=== PATIENT | male | born 1945 | race Caucasian/White ===

== ENCOUNTER 2018-03-19 08:18 | Day surgery (SDC) | payer OTHER ==
[2018-03-19 09:38] VITALS: BMI 28.3
[2018-03-19 11:20] VITALS: BP 123/88; PULSE 67; TEMP 98
--- NOTE | 2018-03-19 12:55 | EKG ---
Test Reason : Blood Pressure : / mmHG Vent. Rate : 069 BPM Atrial Rate : 069 BPM P-R Int : 218 ms QRS Dur : 096 ms QT Int : 432 ms P-R-T Axes : 076 -44 045 degrees QTc Int : 462 ms SINUS RHYTHM WITH 1ST DEGREE A-V BLOCK LEFT AXIS DEVIATION ABNORMAL ECG WHEN COMPARED WITH ECG OF 03-MAR-2008 09:51, [place] INTERVAL HAS INCREASED Confirmed by YOU CORNELIUS, ANA ([id number]) on 03/19/2018 12:55:19 PM Referred By: Pascual Alvarez Confirmed By:ANA ORTA MD
== END 2018-03-19 11:20 | disposition home or self-care (01) ==
LOC: JASU-ENDO 08:18
PROVIDERS: ATTEND Internal Medicine Cardiovascular Disease
PROC: 5A2204Z Restoration of Cardiac Rhythm, Single (ICD-10-PCS; principal; 2018-03-19 09:30)
DX: I48.91 Unspecified atrial fibrillation (principal)
CPT/HCPCS: 92960; 93005; 93010

== ENCOUNTER 2018-04-28 06:56 | Day surgery (SDC) | payer OTHER ==
[2018-04-28 07:25] VITALS: BMI 27.9
[2018-04-28 07:29] LABS: HEMATOCRIT 44.7 % (35.4-49); HEMOGLOBIN 15.1 GM/dL (11.7-16.9); MCH 31.4 pg (25.7-33.7); MCHC 33.8 g/dl (32.0-35.9); MEAN CELL VOLUME 93.2 fl (80-96); MEAN PLT VOLUME 7.5 fl (7.5-11.1); PLATELET COUNT 200 K/MM3 (134-434); WHITE BLOOD COUNT 7.4 K/mm3 (4.0-10.0)
[2018-04-28 08:05] LABS: CHLORIDE 103 mmol/L (98-107); SODIUM 138 mmol/L (136-145)
[2018-04-28] MEDS ORDERED: PROPOFOL 20 ML ONE ×4 (08:11)
[2018-04-28 08:13] LABS: ALBUMIN 3.9 g/dl (3.4-5.0); ALK PHOS 67 U/L (45-117); ANION GAP 8 (8-16); BILIRUBIN,TOTAL 0.9 mg/dL (0.2-1.0); BLOOD UREA NITROGEN 24 mg/dL (7-18); CO2 27 mmol/L (21-32); CREATININE 1.7 mg/dL (0.7-1.3); GLUCOSE,RANDOM 113 mg/dL (74-106); SGPT/ALT 40 U/L (12-78); TOT PROT 7.5 g/dl (6.4-8.2)
[2018-04-28 08:23] LABS: SGOT/AST 30 U/L (15-37)
[2018-04-28 08:49] VITALS: TEMP 98.5
[2018-04-28 10:03] VITALS: BP 119/61; PULSE 58
--- NOTE | 2018-04-28 12:12 | EKG ---
Test Reason : Blood Pressure : / mmHG Vent. Rate : 053 BPM Atrial Rate : 053 BPM P-R Int : 226 ms QRS Dur : 098 ms QT Int : 498 ms P-R-T Axes : 063 -50 020 degrees QTc Int : 467 ms SINUS BRADYCARDIA WITH 1ST DEGREE A-V BLOCK LEFT AXIS DEVIATION ABNORMAL ECG WHEN COMPARED WITH ECG OF 19-MAR-2018 10:37, NO SIGNIFICANT CHANGE WAS FOUND Confirmed by MD JANN, EVERTON ([id number]) on 04/28/2018 12:12:45 PM Referred By: BEATA FAYE DR Confirmed By:EVERTON FORTE MD
== END 2018-04-28 09:35 | disposition home or self-care (01) ==
LOC: JASU-ENDO 06:56
PROVIDERS: ATTEND Internal Medicine Cardiovascular Disease
PROC: 5A2204Z Restoration of Cardiac Rhythm, Single (ICD-10-PCS; principal; 2018-04-28 08:15)
DX: I48.91 Unspecified atrial fibrillation (principal); I10 Essential (primary) hypertension; E11.9 Type 2 diabetes mellitus without complications; Z79.84 Long term (current) use of oral hypoglycemic drugs
CPT/HCPCS: 36415; 80053; 85027; 93005; 93010

== ENCOUNTER 2018-11-02 13:06 | Inpatient (IN) | payer OTHER ==
--- NOTE | 2018-11-02 13:12 | PDOC ---
History of Present Illness - General Chief Complaint: Pain Stated Complaint: LEFT ANKLE PAIN Time Seen by Provider: 11/02/18 13:11 History Source: Patient Exam Limitations: No Limitations - History of Present Illness Initial Comments: 11/02/18 13:11 73 yo male pmh of HTN, HLD, CABG, carotid endarterectomy, illiac stents and Afib requiring cardioversion (on eliquis) presents to the ED with left ankle pain and swelling. Pt states 4 days ago he started feeling weak and lethargic with some chills and noted 2 days ago LLE ankle pain and swelling began. Pt admits to having an infection/cellulitis in the left ankle over 5 years ago in the same area and was treated with PO medication and improved. Denies CP, SOB, abdominal pain, changes in bowel or bladder habits, calf pain. Past History - Past Medical History Allergies/Adverse Reactions: Allergies Allergy/AdvReac Type Severity Reaction Status Date / Time Penicillins Allergy Severe Verified 11/02/18 13:07 Home Medications: Ambulatory Orders Celecoxib [CeleBREX -] 200 mg PO DAILY 03/11/13 Clopidogrel Bisulfate [Plavix -] 75 mg PO DAILY 03/11/13 Isosorbide Mononitrate [Imdur] 120 mg PO DAILY 03/11/13 Metoprolol Succinate [Toprol XL -] 50 mg PO DAILY 03/11/13 metFORMIN HCL [Glucophage -] 500 mg PO BID 03/11/13 Apixaban [Eliquis] 5 mg PO BID 03/19/18 Diltiazem HCl [Cartia Xt] 120 mg PO DAILY 03/19/18 Nortriptyline HCl [Pamelor -] 25 mg PO HS 03/19/18 Amiodarone HCl [Cordarone -] 200 mg PO DAILY 04/28/18 Atorvastatin Ca [Lipitor] 20 mg PO DAILY 04/28/18 Cholecalciferol (Vitamin D3) [Vitamin D3] 1,000 unit PO DAILY 04/28/18 Magnesium Oxide [Magnesium] 400 mg PO DAILY 04/28/18 Melatonin 1 mg PO DAILY 04/28/18 Niacin 100 mg PO DAILY 04/28/18 Turmeric/Turmeric Ext/Pepr Ext [Turmeric Complex 500 mg Cap] 1 each PO DAILY 04/10 Zinc 220 mg PO DAILY 04/28/18 Sulfamethoxazole/Trimethoprim [Bactrim Ds -] 1 tab PO BID #10 tablet 11/10/18 Anemia: No Asthma: No Cancer: No Cardiac Disorders: Yes (PAF, CAD) CVA: No COPD: No CHF: No Dementia: No Diabetes: Yes (NIDDM) GI Disorders: No Disorders: No HTN: Yes Hypercholesterolemia: Yes Liver Disease: Yes Seizures: No Thyroid Disease: No - Surgical History Abdominal Surgery: Yes Appendectomy: No Cardiac Surgery: Yes (BYPASS 2000) Cholecystectomy: Yes Lung Surgery: No Neurologic Surgery: No Orthopedic Surgery: Yes (RT CARPAL TUNNEL, RT TORN MENISCUS) - Suicide/Smoking/Psychosocial Hx Smoking History: Former smoker Have you smoked in the past 12 months: No If you are a former smoker, when did you quit?: 1990 Hx Alcohol Use: Yes (OCC) Drug/Substance Use Hx: No Substance Use Type: None Hx Substance Use Treatment: No Review of Systems - Review of Systems Constitutional: Yes: Chills, Fever, Weakness HEENTM: No: Blurred Vision Respiratory: No: Shortness of Breath Cardiac (ROS): No: Chest Pain ABD/GI: No: Constipated, Diarrhea : No: Burning, Dysuria, Flank Pain Musculoskeletal: No: Back Pain, Muscle Pain Integumentary: Yes: Change in Color, Erythema Neurological: No: Numbness, Paresthesia, Weakness *Physical Exam - Physical Exam General Appearance: Yes: Nourished, Appropriately Dressed. No: Apparent Distress HEENT: positive: EOMI Respiratory/Chest: positive: Lungs Clear, Normal Breath Sounds. negative: Accessory Muscle Use, Crackles, Rales, Rhonchi, Wheezing Cardiovascular: positive: Regular Rhythm, Regular Rate, S1, S2, Edema (1+ pitting LLE). negative: JVD, Murmur Vascular Pulses: Dorsalis-Pedis (R): 3+, Doralis-Pedis (L): 3+ Gastrointestinal/Abdominal: positive: Normal Bowel Sounds, Flat, Soft. negative : Pulsatile Mass, Distended, Guarding, Rebound, Tenderness Extremity: positive: Normal Capillary Refill, Normal Range of Motion, Pedal Edema (LLE 1+ pitting without fluctuance), Erythema (LLE). negative: Calf Tenderness Integumentary: positive: Dry, Warm Neurologic: positive: Fully Oriented, Alert, Normal Mood/Affect, Normal Response ED Treatment Course - LABORATORY CBC & Chemistry Diagram: 11/06/18 10:10 11/08/18 09:50 Medical Decision Making - Medical Decision Making 73 yo male pmh of HTN, HLD, CABG, carotid endarterectomy, illiac stents and Afib requiring cardioversion (on eliquis) presents to the ED with left ankle pain and swelling. Pt states 4 days ago he started feeling weak and lethargic with some chills and noted 2 days ago LLE ankle pain and swelling began. Pt admits to having an infection/cellulitis in the left ankle over 5 years ago in the same area and was treated with PO medication and improved. Denies CP, SOB, abdominal pain, changes in bowel or bladder habits, calf pain. Pt was hypotensive on arrival. Received IV fluids and responded well IV antibiotics started Labs show WBC 15, lactate 3 and elevated creatinine Discussed pt with hospitalist JAMA Quintero who agrees to have pt admitted for sepsis and acute on chronic renal failure *DC/Admit/Observation/Transfer Diagnosis at time of Disposition: Sepsis Qualifiers: Sepsis type: sepsis due to unspecified organism Qualified Code(s): A41.9 - Sepsis, unspecified organism Acute on chronic kidney failure Qualifiers: Acute renal failure type: unspecified Chronic kidney disease stage: unspecified stage Qualified Code(s): N17.9 - Acute kidney failure, unspecified Cellulitis Qualifiers: Site of cellulitis: extremity Site of cellulitis of extremity: lower extremity Laterality: left Qualified Code(s): L03.116 - Cellulitis of left lower limb - Discharge Dispostion Condition at time of disposition: Stable Decision to Admit order: Yes - Prescriptions - Referrals - Patient Instructions - Post Discharge Activity
[2018-11-02 14:35] LABS: BASO % 0.2 % (0-2.0); EOS % 0.1 % (0-4.5); HEMOGLOBIN 14.2 GM/dl (11.7-16.9); LYMPH % 6.9 % (8-40); MCH 30.8 pg (25.7-33.7); MCHC 31.6 g/dl (32.0-35.9); MEAN CELL VOLUME 97.6 fl (80-96); MEAN PLT VOLUME 8.5 fl (7.5-11.1); MONO % 7.9 % (3.8-10.2); NEUT % 84.9 % (42.8-82.8); PLATELET COUNT 198 K/MM3 (134-434); RBC 4.61 M/mm3 (4.00-5.60); RDW 13.6 % (11.9-15.9); WHITE BLOOD COUNT 15.1 K/mm3 (4.0-10.8)
[2018-11-02] MEDS ORDERED: SODIUM CHLORIDE 1,000 ML IV STA ×2 (14:45→14:46)
[2018-11-02 14:54] LABS: ALBUMIN 3.2 g/dl (3.5-5.0); ALK PHOS 63 U/L (32-92); ANION GAP 11 MMOL/L (8-16); BILIRUBIN,TOTAL 1.2 mg/dl (0.2-1.0); BLOOD UREA NITROGEN 41 mg/dl (7-18); CALCIUM 8.7 mg/dl (8.4-10.2); CHLORIDE 102 mmol/L (98-107); CO2 19 mmol/L (22-28); CREATININE 2.4 mg/dl (0.6-1.3); GLUCOSE,RANDOM 119 mg/dl (74-106); POTASSIUM 4.4 mmol/L (3.5-5.1); SGOT/AST 122 U/L (10-42); SGPT/ALT 114 U/L (10-40); SODIUM 132 mmol/L (136-145); TOT PROT 6.6 g/dl (6.4-8.3)
[2018-11-02] MEDS ORDERED: VANCOMYCIN 1 GRAM (PRE-DOCKED) 1,000 MG/250 ML BAG IVPB ONE (15:07)
--- NOTE | 2018-11-02 15:07 | PDOC ---
Attending Attestation - Resident Resident Name: Kevan Barbour - ED Attending Attestation I have performed the following: I have examined & evaluated the patient, The case was reviewed & discussed with the resident, I agree w/resident's findings & plan, Exceptions are as noted - HPI HPI: 73 yo M presents with LLE redness, pain. Also c/o weakness, fever. No recent illness. He has had cellulitis to his L leg in the past. - Physicial Exam PE: GENERAL: Awake, alert, and fully oriented, in no acute distress HEAD: No signs of trauma EYES: PERRLA, EOMI, sclera anicteric, conjunctiva clear ENT: Auricles normal inspection, hearing grossly normal, nares patent, oropharynx clear without exudates. Dry mucosa NECK: Normal ROM, supple, no lymphadenopathy, JVD, or masses LUNGS: Breath sounds equal, clear to auscultation bilaterally. No wheezes, and no crackles HEART: Regular rate and rhythm, normal S1 and S2, no murmurs, rubs or gallops ABDOMEN: Soft, nontender, normoactive bowel sounds. No guarding, no rebound. No masses EXTREMITIES: L lower leg with large area of redness, no fluctuance, no induration. No open lesions, however, he does have dry cracked skin to the lower leg and foot. 1+ pitting edema to LLE. Remainder of extremities with normal range of motion, no edema. No clubbing or cyanosis. No cords, erythema, or tenderness NEUROLOGICAL: Cranial nerves II through XII grossly intact. Normal speech. Motor and sensation intact. SKIN: Warm, Dry, normal turgor, no rashes or lesions noted. - Medical Decision Making Pt initially hypotensive. Likely related both to the infection and his lack of PO intake for the past 5 days. He responded to IV fluids. Sepsis labs obtained, XR obtained. IV abx given.
[2018-11-02 15:08] LABS: INR 2.64 (0.82-1.09)
[2018-11-02] MEDS ORDERED: VANCOMYCIN 1,000 MG VIAL (RESTRICTED TO ID ONLY) ONE (15:35)
--- NOTE | 2018-11-02 16:41 | HP ---
Admitting History and Physical - Primary Care Physician PCP: Jean Paul Núñez - Admission Chief Complaint: Left ankle redness and swelling x 2 days. 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 Mr. Urrutia reports left hip tenderness 2days prior to his symptoms in LLE being present. Associated symptoms include lethargy, chills, gait impairment , decreased appetite and lethargy. His family reports prior cellulitis in left lower extremity ~ 3yrs ago, which was treated with oral Abx. Patient unable to recall any precipitating factors. At the urging of his family, pt decided to present to local ED for evaluation. In ED he was noted to be hypotensive (SBP 80s), WBC 15, Lactate 3.0. He was given 2L IV fluids which resulted in improvement in hypotension (SBP 100-130s). Additionally, He was treated with vancomycin IV. Decision made to admit pt for management of LLE cellulitis. History Source: Patient, Family Member Limitations to Obtaining History: No Limitations - Past Medical History Cardiovascular: Yes: AFIB (s/p DCCV, pt now on eliquis), CAD, HTN, Hyperlipdemia , [place] Gastrointestinal: Yes: GERD, Other (dysphagia) Hepatobiliary: No: Cirrhosis, Cholelithiasis, Cholecystitis, Choledocholithiasis , Hepatitis A, Hepatitis B, Hepatitis C, Other Renal/: Yes: Renal Inusuff. No: Renal Failure, BPH, Cancer, Hematuria, Hemodialysis, Neurogenic Bladder, Renal Calculi, UTI, Other Heme/Onc: No: Anemia, B12 Deficiency, Bleeding Disorder, Cancer, Current Chemotherapy, Current Radiation Therapy, Hemochromatosis, Hypercoaguable State, Myeloproliferative Synd, Sickle Cell Disease, Sickle Cell Trait, Thrombocytopenia, Other Psych: No: Addictions, Anxiety, Bipolar, Depression, Panic, Psychosis, Schizophrenia, Other Rheumatology: No: Fibromyalgia, Gout, Lupus, Rheumatoid Arthritis, Sarcoidosis, Vasculitis, Other ENT: No: Allergic Rhinitis, Sinusitis, Other Endocrine: Yes: Diabetes Mellitus, Other (thyroid nodule) Additional Past Medical History: Peripheral artery disease - Past Surgical History Past Surgical History: Yes: CABG, Carotid Endarterectomy (open carotid endarectomy x 2, stent placement x 1.), Colonoscopy (2012), Joint Replacement - Smoking History Smoking history: Former smoker (3PPD x 10yrs) Have you smoked in the past 12 months: No If you are a former smoker, when did you quit?: 1990 - Alcohol/Substance Use Hx Alcohol Use: Yes (pt drank heavily x 12yrs, now drinks 2 beers after work) History of Substance Use: reports: None - Social History Usual Living Arrangement: Yes: With Spouse (in private home) ADL: Independent 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 History of Recent Travel: No Home Medications - Allergies Allergies/Adverse Reactions: Allergies Allergy/AdvReac Type Severity Reaction Status Date / Time Penicillins Allergy Severe Verified 11/02/18 13:07 - Home Medications Home Medications: Ambulatory Orders Celecoxib [CeleBREX -] 200 mg PO DAILY 03/11/13 Clopidogrel Bisulfate [Plavix -] 75 mg PO DAILY 03/11/13 Isosorbide Mononitrate [Imdur] 120 mg PO DAILY 03/11/13 Metoprolol Succinate [Toprol XL -] 50 mg PO DAILY 03/11/13 Zolpidem Tartrate [Ambien] 10 mg PO HS 03/11/13 metFORMIN HCL [Glucophage -] 500 mg PO BID 03/11/13 Apixaban [Eliquis] 5 mg PO BID 03/19/18 Diltiazem HCl [Cartia Xt] 120 mg PO DAILY 03/19/18 Nortriptyline HCl [Pamelor -] 25 mg PO HS 03/19/18 Amiodarone HCl [Cordarone -] 200 mg PO DAILY 04/28/18 Atorvastatin Ca [Lipitor] 20 mg PO DAILY 04/28/18 Cholecalciferol (Vitamin D3) [Vitamin D3] 1,000 unit PO DAILY 04/28/18 Magnesium Oxide [Magnesium] 400 mg PO DAILY 04/28/18 Melatonin 1 mg PO DAILY 04/28/18 Niacin 100 mg PO DAILY 04/28/18 Turmeric/Turmeric Ext/Pepr Ext [Turmeric Complex 500 mg Cap] 1 each PO DAILY 04/10 Zinc 220 mg PO DAILY 04/28/18 Family Disease History - Family Disease History Family Disease History: Other: Father ( (52) [place]), Mother ( (48) colon cancer), Brother ( (50s) [place]) Other Family History: Sister (78) DMII, [place]. Sister alive (80) Gastric ulcers, DMII Review of Systems - Review of Systems Constitutional: reports: Chills, Lethargy, Malaise Eyes: reports: No Symptoms HENT: reports: No Symptoms Neck: reports: No Symptoms Cardiovascular: reports: No Symptoms Respiratory: reports: No Symptoms Gastrointestinal: reports: No Symptoms Genitourinary: reports: No Symptoms Breasts: reports: No Symptoms Reported Musculoskeletal: reports: Decreased ROM, Extremity Pain (LLE), Joint Pain, Joint Swelling (Left ankle) Integumentary: reports: Change in Color, Erythema (let ankle) Neurological: reports: Unsteady Gait, Weakness Endocrine: reports: No Symptoms Hematology/Lymphatic: reports: No Symptoms Psychiatric: reports: No Symptoms Physical Examination Vital Signs: Vital Signs Temperature 97.3 F L 11/02/18 15:26 Pulse Rate 59 L 11/02/18 16:28 Respiratory Rate 20 11/02/18 16:28 Blood Pressure 96/65 11/02/18 16:28 O2 Sat by Pulse Oximetry (%) 99 11/02/18 16:28 Constitutional: Yes: No Distress, Calm Eyes: Yes: WNL, Conjunctiva Clear HENT: Yes: Atraumatic, Normocephalic Neck: Yes: Supple, Trachea Midline Cardiovascular: Yes: Regular Rate and Rhythm Respiratory: Yes: WNL, Regular, CTA Bilaterally Gastrointestinal: Yes: Normal Bowel Sounds, Soft ...Rectal Exam: Yes: Deferred Renal/: Yes: WNL Musculoskeletal: Yes: WNL Extremities: Yes: WNL, Erythema (LLE) Edema: Yes Edema: LUE: 2+, RUE: 2+, LLE: Trace, RLE: 2+ Peripheral Pulses WNL: Yes Peripheral Pulses: Left Radial: 2+, Right Radial: 2+, Left Doralis Pedis: 1+, Right Dorsalis Pedis: 1+ Integumentary: Yes: Erythema (LLE redness and trace edema) Neurological: Yes: Alert, Oriented, Unsteady Gait, Weakness ...Motor Strength: WNL Psychiatric: Yes: Alert, Oriented Labs: CBC, BMP 11/02/18 14:24 11/02/18 14:24 Imaging - Results Chest X-ray: Report Reviewed (CXR 11/02 Impression: Sternal sutures and clips with prominent mediastinum. Angles are sharp and the soft tissues are intact. There are degenerative changes), Image Reviewed X-ray: Report Reviewed (Left foot xray 11/02 Impression: no acute left ankle for foot pathology Left tibia and fibula xray 11/02 Impression: There are degenerative knee changes wit chondrocalcinosis and clips. There is no sign of a gross fracture or subluxation. There are vasc calcifications.) Problem List - Problems (1) HLD (hyperlipidemia) Assessment/Plan: Continue lipitor 20mg qhs cardiac diet Code(s): E78.5 - HYPERLIPIDEMIA, UNSPECIFIED Qualifiers: Hyperlipidemia type: pure hypercholesterolemia Qualified Code(s): E78.00 - Pure hypercholesterolemia, unspecified; E78.0 - Pure hypercholesterolemia (2) Atrial fibrillation Assessment/Plan: continue eliquis 5mg BID monitor on telemetry BP now normalized continue cardizem, will hold off on toprol for now amio 200mg daily Code(s): I48.91 - UNSPECIFIED ATRIAL FIBRILLATION (3) CAD in [place] artery Assessment/Plan: plavix 75mg daily continue imdur 120mg daily hold Toprol XL 50mg due to hypotension at time of Ed presentation Code(s): I25.10 - ATHSCL HEART DISEASE OF [place] CORONARY ARTERY W/O ANG PCTRS (4) Acute on chronic kidney failure Assessment/Plan: d/c celebrex in light of rising serum cr gentle IV fluid hydration trend Cr and replete electrolyte as needed Code(s): N17.9 - ACUTE KIDNEY FAILURE, UNSPECIFIED; N18.9 - CHRONIC KIDNEY DISEASE, UNSPECIFIED Qualifiers: Acute renal failure type: unspecified Chronic kidney disease stage: unspecified stage Qualified Code(s): N17.9 - Acute kidney failure, unspecified ; N18.9 - Chronic kidney disease, unspecified (5) Cellulitis Assessment/Plan: Vancomycin daily for cellulitis Would consider addimg ceftriaxone for broad coverage, pt has PCN allergy, will discuss extent of reaction with pt. f/u blood and urine cultures doppler studies LLE to assess for DVT Code(s): L03.90 - CELLULITIS, UNSPECIFIED Qualifiers: Site of cellulitis: extremity Site of cellulitis of extremity: lower extremity Laterality: left Qualified Code(s): L03.116 - Cellulitis of left lower limb (6) Sepsis Assessment/Plan: encourage PO fluids gentle IV fluid hydration vancomycin 1g [id number] f/u blood and urine culture results Code(s): A41.9 - SEPSIS, UNSPECIFIED ORGANISM Qualifiers: Sepsis type: sepsis due to unspecified organism Qualified Code(s): A41.9 - Sepsis, unspecified organism (7) Insomnia disorder Assessment/Plan: ambien 10mg qhs melatonin 1mg PRN hold nortriptyline Code(s): G47.00 - INSOMNIA, UNSPECIFIED (8) DM type 2 (diabetes mellitus, type 2) Assessment/Plan: hold metformin in setting of MARIANNA Insulin SS FS AC and HS Code(s): E11.9 - TYPE 2 DIABETES MELLITUS WITHOUT COMPLICATIONS Qualifiers: Diabetes mellitus half-way insulin use: without half-way use Assessment/Plan DISPO: Full code Visit type - Emergency Visit Emergency Visit: Yes ED Registration Date: 11/02/18 Care time: The patient presented to the Emergency Department on the above date and was hospitalized for further evaluation of their emergent condition. - New Patient This patient is new to me today: Yes Date on this admission: 11/02/18 - Critical Care Critical Care patient: No
[2018-11-02 20:45] LABS: URINE APPEARANCE Slightly; URINE BILIRUBIN 1+ (NEGATIVE); URINE COLOR Yellow; URINE GLUCOSE (UA) Negative (NEGATIVE); URINE KETONE Trace (NEGATIVE); URINE LEUK ESTERASE Negative (NEGATIVE); URINE NITRITE Negative (NEGATIVE); URINE PROTEIN 1+ (NEGATIVE)
[2018-11-02 21:13] LABS: URINE BACTERIA 2+ /hpf (NEGATIVE); URINE RBC 0-2 /hpf (0-3)
[2018-11-02] MEDS: ATORVASTATIN CA 20 MG TABLET (FP) PO SCH (22:07)
[2018-11-02] MEDS: APIXABAN 5 MG TABLET PO SCH (22:07)
[2018-11-02] MEDS: ZOLPIDEM TARTRATE 5 MG TABLET PO PRN (23:09)
[2018-11-02] MEDS: MELATONIN 1 MG TABLET PO SCH (23:19)
[2018-11-03] MEDS: INSULIN SLIDING SCALE (NOVOLOG) 1 VIAL SQ SCH ×4 (06:31→21:15)
[2018-11-03 08:21] LABS: BASO % 0.3 % (0-2.0); EOS % 4.5 % (0-4.5); HEMATOCRIT 36.9 % (35.4-49); HEMOGLOBIN 11.9 GM/dl (11.7-16.9); LYMPH % 8.1 % (8-40); MCH 31.9 pg (25.7-33.7); MCHC 32.3 g/dl (32.0-35.9); MEAN CELL VOLUME 98.8 fl (80-96); MEAN PLT VOLUME 8.4 fl (7.5-11.1); MONO % 8.1 % (3.8-10.2); PLATELET COUNT 149 K/MM3 (134-434); RBC 3.74 M/mm3 (4.00-5.60); RDW 13.4 % (11.9-15.9); WHITE BLOOD COUNT 9.6 K/mm3 (4.0-10.8)
[2018-11-03 08:39] LABS: ALBUMIN 2.5 g/dl (3.5-5.0); ALK PHOS 51 U/L (32-92); ANION GAP 8 MMOL/L (8-16); BILIRUBIN,TOTAL 1.1 mg/dl (0.2-1.0); BLOOD UREA NITROGEN 34 mg/dl (7-18); CALCIUM 7.8 mg/dl (8.4-10.2); CHLORIDE 106 mmol/L (98-107); CO2 19 mmol/L (22-28); CREATININE 1.6 mg/dl (0.6-1.3); GLUCOSE,RANDOM 71 mg/dl (74-106); MAGNESIUM 1.3 mg/dL (1.8-2.4); PHOSPHOROUS 2.2 mg/dl (2.5-4.6); POTASSIUM 4.1 mmol/L (3.5-5.1); SGOT/AST 101 U/L (10-42); SGPT/ALT 107 U/L (10-40); SODIUM 133 mmol/L (136-145); TOT PROT 5.3 g/dl (6.4-8.3)
[2018-11-03 08:56] LABS: INR 2.03 (0.82-1.09); PROTHROMBIN TIME (PATIENT) 22.4 SEC (10.2-13.0)
[2018-11-03 09:21] LABS: N-TERMINAL BNP 1518.2 pg/ml (5-125)
[2018-11-03] MEDS: CLOPIDOGREL BISULFATE 75 MG TABLET (FP) PO SCH (09:52)
[2018-11-03] MEDS: MAGNESIUM OXIDE 400 MG TABLET (FP) PO SCH (09:52)
[2018-11-03] MEDS: APIXABAN 5 MG TABLET PO SCH ×2 (09:52→21:14)
[2018-11-03] MEDS: ISOSORBIDE MONONITRATE 60 MG TAB.SR.24H (FP) PO SCH (09:53)
[2018-11-03] MEDS: CHOLECALCIFEROL (VITAMIN D3) 1,000 UNIT TABLET (FP) PO SCH (09:53)
[2018-11-03] MEDS: AMIODARONE HCL 200 MG TABLET (FP) PO SCH (09:57)
[2018-11-03] MEDS ORDERED: PATIENT'S OWN MEDICATION (NON-FORMULARY) (Magnesium Oxide [Magnesium] 400 MG) PO SCH (10:00)
[2018-11-03] MEDS ORDERED: VANCOMYCIN 1,000 MG in DEXTROSE 5%-WATER - 250 ML IVPB SCH ×2 (10:00→15:00)
[2018-11-03] MEDS ORDERED: NIACIN 100 MG PO SCH (10:00)
[2018-11-03] MEDS ORDERED: PATIENT'S OWN MEDICATION (NON-FORMULARY) (Isosorbide Mononitrate [Imdur] 120 MG) PO SCH (10:00)
--- NOTE | 2018-11-03 13:03 | EKG ---
Test Reason : Blood Pressure : / mmHG Vent. Rate : 053 BPM Atrial Rate : 053 BPM P-R Int : 208 ms QRS Dur : 104 ms QT Int : 444 ms P-R-T Axes : 069 -42 043 degrees QTc Int : 416 ms SINUS BRADYCARDIA LEFT AXIS DEVIATION ABNORMAL ECG WHEN COMPARED WITH ECG OF 28-APR-2018 08:58, QT HAS SHORTENED Confirmed by Dewey Naqvi ([id number]) on 11/03/2018 1:02:49 PM Referred By: MAXIMO Confirmed By:Dewey Naqvi
[2018-11-03] MEDS ORDERED: VANCOMYCIN 1 GRAM (PRE-DOCKED) 1,000 MG/250 ML BAG IVPB SCH (13:45)
[2018-11-03] MEDS ORDERED: VANCOMYCIN 1 GRAM (PRE-DOCKED) 1,000 MG/250 ML BAG IVPB ONE (14:00)
[2018-11-03] MEDS ORDERED: VANCOMYCIN 1 GM PREMIX - 1 GM/200 ML BAG IVPB ONE (14:00)
--- NOTE | 2018-11-03 15:25 | PN ---
Physical Exam: SUBJECTIVE: Patient seen and examined at bedside. present. OBJECTIVE: Vital Signs Period Temp Pulse Resp BP Sys/Bella Pulse Ox Last 24 Hr 97.3 F-97.8 F 53-65 18-20 96-141/56-86 96-100 GENERAL: The patient is awake, alert, and fully oriented, in no acute distress. LUNGS: Breath sounds equal, clear to auscultation bilaterally, no wheezes, no crackles, no accessory muscle use. HEART: Regular rate and rhythm, S1, S2 ABDOMEN: Soft, nontender, nondistended UPPER EXTREMITIES: 2+ pulses, warm, well-perfused, no edema. LOWER EXTREMITIES: LEFT: deep erythema, swelling, skin tightness LLE; 2+DP pulse NEUROLOGICAL: Cranial nerves II through XII grossly intact. Normal speech; moves all extremities freely Laboratory Results - last 24 hr 11/02/18 11/02/18 11/02/18 14:25 14:25 16:47 WBC RBC Hgb Hct MCV MCH MCHC RDW Plt Count MPV Absolute Neuts (auto) Neutrophils % Lymphocytes % Monocytes % Eosinophils % Basophils % ESR PT with INR 29.0 H INR 2.64 H PTT (Actin FS) Sodium Potassium Chloride Carbon Dioxide Anion Gap BUN Creatinine Creat Clearance w eGFR POC Glucometer Random Glucose Hemoglobin A1c % Lactic Acid 3.0 H* 2.0 Calcium Phosphorus Magnesium Total Bilirubin AST ALT Alkaline Phosphatase C-Reactive Protein B-Natriuretic Peptide Total Protein Albumin Urine Color Urine Appearance Urine pH Ur Specific [place] Urine Protein Urine Glucose (UA) Urine Ketones Urine Blood Urine Nitrite Urine Bilirubin Urine Urobilinogen Ur Leukocyte Esterase Urine RBC Urine WBC Urine Bacteria U Random Total Protein Ur Random Sodium Urine Creatinine Random Vancomycin Blood Type Antibody Screen 11/02/18 11/02/18 11/02/18 20:37 20:37 20:37 WBC RBC Hgb Hct MCV MCH MCHC RDW Plt Count MPV Absolute Neuts (auto) Neutrophils % Lymphocytes % Monocytes % Eosinophils % Basophils % ESR PT with INR INR PTT (Actin FS) Sodium Potassium Chloride Carbon Dioxide Anion Gap BUN Creatinine Creat Clearance w eGFR POC Glucometer Random Glucose Hemoglobin A1c % Lactic Acid Calcium Phosphorus Magnesium Total Bilirubin AST ALT Alkaline Phosphatase C-Reactive Protein B-Natriuretic Peptide Total Protein Albumin Urine Color Yellow Urine Appearance Slightly Urine pH 5.0 Ur Specific [place] 1.025 Urine Protein 1+ H Urine Glucose (UA) Negative Urine Ketones Trace Urine Blood Negative Urine Nitrite Negative Urine Bilirubin 1+ H Urine Urobilinogen 1.0 Ur Leukocyte Esterase Negative Urine RBC 0-2 Urine WBC 2-5 Urine Bacteria 2+ U Random Total Protein 58 H Ur Random Sodium 36 Urine Creatinine 232.2 H Random Vancomycin Blood Type Antibody Screen 11/03/18 11/03/18 11/03/18 06:23 07:05 07:35 WBC RBC Hgb Hct MCV MCH MCHC RDW Plt Count MPV Absolute Neuts (auto) Neutrophils % Lymphocytes % Monocytes % Eosinophils % Basophils % ESR PT with INR INR PTT (Actin FS) Sodium 133 L Potassium 4.1 Chloride 106 Carbon Dioxide 19 L Anion Gap 8 BUN 34 H Creatinine 1.6 H Creat Clearance w eGFR 42.82 POC Glucometer 76 Random Glucose 71 L D Hemoglobin A1c % Lactic Acid Calcium 7.8 L Phosphorus Magnesium Total Bilirubin 1.1 H AST 101 H ALT 107 H Alkaline Phosphatase 51 D C-Reactive Protein B-Natriuretic Peptide Total Protein 5.3 L Albumin 2.5 L Urine Color Urine Appearance Urine pH Ur Specific [place] Urine Protein Urine Glucose (UA) Urine Ketones Urine Blood Urine Nitrite Urine Bilirubin Urine Urobilinogen Ur Leukocyte Esterase Urine RBC Urine WBC Urine Bacteria U Random Total Protein Ur Random Sodium Urine Creatinine Random Vancomycin Blood Type A POSITIVE Antibody Screen Negative 11/03/18 11/03/18 11/03/18 07:35 07:35 07:35 WBC 9.6 RBC 3.74 L Hgb 11.9 Hct 36.9 D MCV 98.8 H MCH 31.9 MCHC 32.3 RDW 13.4 Plt Count 149 D MPV 8.4 Absolute Neuts (auto) 7.6 Neutrophils % 79.0 Lymphocytes % 8.1 Monocytes % 8.1 Eosinophils % 4.5 D Basophils % 0.3 ESR PT with INR INR PTT (Actin FS) Sodium Potassium Chloride Carbon Dioxide Anion Gap BUN Creatinine Creat Clearance w eGFR POC Glucometer Random Glucose Hemoglobin A1c % 6.1 Lactic Acid Calcium Phosphorus 2.2 L Magnesium 1.3 L Total Bilirubin AST ALT Alkaline Phosphatase C-Reactive Protein B-Natriuretic Peptide 1518.2 H Total Protein Albumin Urine Color Urine Appearance Urine pH Ur Specific [place] Urine Protein Urine Glucose (UA) Urine Ketones Urine Blood Urine Nitrite Urine Bilirubin Urine Urobilinogen Ur Leukocyte Esterase Urine RBC Urine WBC Urine Bacteria U Random Total Protein Ur Random Sodium Urine Creatinine Random Vancomycin Blood Type Antibody Screen 11/03/18 11/03/18 11/03/18 07:35 07:35 07:39 WBC RBC Hgb Hct MCV MCH MCHC RDW Plt Count MPV Absolute Neuts (auto) Neutrophils % Lymphocytes % Monocytes % Eosinophils % Basophils % ESR PT with INR 22.4 H INR 2.03 H PTT (Actin FS) 32.0 Sodium Potassium Chloride Carbon Dioxide Anion Gap BUN Creatinine Creat Clearance w eGFR POC Glucometer Random Glucose Hemoglobin A1c % Lactic Acid Calcium Phosphorus Magnesium Total Bilirubin AST ALT Alkaline Phosphatase C-Reactive Protein 18.2 H B-Natriuretic Peptide Total Protein Albumin Urine Color Urine Appearance Urine pH Ur Specific [place] Urine Protein Urine Glucose (UA) Urine Ketones Urine Blood Urine Nitrite Urine Bilirubin Urine Urobilinogen Ur Leukocyte Esterase Urine RBC Urine WBC Urine Bacteria U Random Total Protein Ur Random Sodium Urine Creatinine Random Vancomycin Blood Type Antibody Screen 11/03/18 11/03/18 11/03/18 07:39 11:48 14:20 WBC RBC Hgb Hct MCV MCH MCHC RDW Plt Count MPV Absolute Neuts (auto) Neutrophils % Lymphocytes % Monocytes % Eosinophils % Basophils % ESR 38 H PT with INR INR PTT (Actin FS) Sodium Potassium Chloride Carbon Dioxide Anion Gap BUN Creatinine Creat Clearance w eGFR POC Glucometer 88 Random Glucose Hemoglobin A1c % Lactic Acid Calcium Phosphorus Magnesium Total Bilirubin AST ALT Alkaline Phosphatase C-Reactive Protein B-Natriuretic Peptide Total Protein Albumin Urine Color Urine Appearance Urine pH Ur Specific [place] Urine Protein Urine Glucose (UA) Urine Ketones Urine Blood Urine Nitrite Urine Bilirubin Urine Urobilinogen Ur Leukocyte Esterase Urine RBC Urine WBC Urine Bacteria U Random Total Protein Ur Random Sodium Urine Creatinine Random Vancomycin Cancelled Blood Type Antibody Screen Active Medications Generic Name Dose Route Start Last Admin Trade Name Sebastian PRN Reason Stop Dose Admin Amiodarone HCl 200 mg 11/03/18 10:00 11/03/18 09:57 Cordarone - PO 200 mg DAILY NATI Administration Apixaban 5 mg 11/02/18 22:00 11/03/18 09:52 Eliquis - PO 5 mg BID NATI Administration Atorvastatin Calcium 20 mg 11/02/18 22:00 11/02/18 22:07 Lipitor - PO 20 mg HS NATI Administration Cholecalciferol 1,000 unit 11/03/18 10:00 11/03/18 09:53 Vitamin D3 - PO 1,000 unit DAILY NATI Administration Clopidogrel Bisulfate 75 mg 11/03/18 10:00 11/03/18 09:52 Plavix - PO 75 mg DAILY NATI Administration Diltiazem HCl 120 mg 11/03/18 10:00 11/03/18 09:55 Cardizem Cd - PO 120 mg DAILY NATI Administration Vancomycin HCl 1,000 mg in 250 mls @ 133.333 mls/hr 11/03/18 13:45 Vancomycin (Pre-Docked) IVPB Q12H NATI Vancomycin HCl 1,000 mg in 250 mls @ 133.333 mls/hr 11/03/18 14:00 Vancomycin (Pre-Docked) IVPB 11/03/18 15:52 ONCE ONE Insulin Aspart 1 vial 11/03/18 07:00 11/03/18 11:57 Novolog Vial Sliding Scale - SQ Not Given ACHS [facility] Protocol Isosorbide Mononitrate 120 mg 11/03/18 10:00 11/03/18 09:53 Imdur - PO 120 mg DAILY NATI Administration Magnesium Oxide 400 mg 11/03/18 10:00 11/03/18 09:52 Mag-Ox - PO 400 mg DAILY [facility] Administration Melatonin 1 mg 11/02/18 22:00 11/02/18 23:19 Melatonin PO Not Given HS [facility] Non-Formulary Medication 100 mg 11/03/18 10:00 Niacin [Niacin] PO DAILY [facility] Zolpidem Tartrate 5 mg 11/02/18 22:50 11/02/18 23:09 Ambien - PO 5 mg HS PRN Administration INSOMNIA ASSESSMENT/PLAN 73 year-old male with a PMH significant for HTN, HLD, CAD s/p CABG, LLE Cellulitis --seen and evaluated by ID, switch to ertapenem --second recurrence of cellulitis in same location, last one x 3 years --circumferential subq soft tissue edema of the calf; no focal fluid collection, no osteo Hypertension --BP stable --continue diltiazem Hyperlipidemia --continue atrovastatin, niacin Coronary artery disease s/p CABG Carotid artery disease s/p endarterectomies --continue Plavix --NOT on ASA Cerebrovascular disease --s/p two "mini" strokes which occurred in course of endarterectomies Peripheral arterial disease --s/p iliac stents Atrial fibrillation --ECG: sinus eriberto @ 53bpm --continue amiodarone --continue diltiazem --on Eliquis CKD --Cr 2.4 on admission likely due to decreased PO intake in past week --Cr 1.6 today, continue to trend Pulmonary fibrosis --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 Full code. Visit type - Emergency Visit Emergency Visit: Yes ED Registration Date: 11/02/18 Care time: The patient presented to the Emergency Department on the above date and was hospitalized for further evaluation of their emergent condition. - New Patient This patient is new to me today: Yes Date on this admission: 11/03/18 - Critical Care Critical Care patient: No
--- NOTE | 2018-11-03 17:12 | CON.ID ---
Consult Consult Specialty:: infectious diseases - Past Medical History Cardio/Vascular: Yes: AFIB (s/p DCCV, pt now on eliquis), CAD, HTN, Hyperlipdemia, [place] Gastrointestinal: Yes: GERD, Other (dysphagia) Hepatobiliary: No: Cirrhosis, Cholelithiasis, Cholecystitis, Choledocholithiasis , Hepatitis A, Hepatitis B, Hepatitis C, Other Renal/: Yes: Renal Inusuff. No: Renal Failure, BPH, Cancer, Hematuria, Hemodialysis, Neurogenic Bladder, Renal Calculi, UTI, Other Psych: No: Addictions, Anxiety, Bipolar, Depression, Panic, Psychosis, Schizophrenia, Other Rheumatology: No: Fibromyalgia, Gout, Lupus, Rheumatoid Arthritis, Sarcoidosis, Vasculitis, Other ENT: No: Allergic Rhinitis, Sinusitis, Other Endocrine: Yes: Diabetes Mellitus, Other (thyroid nodule) - Past Surgical History Past Surgical History: Yes: CABG, Carotid Endarterectomy (open carotid endarectomy x 2, stent placement x 1.), Colonoscopy (2011), Joint Replacement - Alcohol/Substance Use Hx Alcohol Use: Yes (pt drank heavily x 12yrs, now drinks 2 beers after work) History of Substance Use: reports: None - Smoking History Smoking history: Former smoker (3PPD x 10yrs) Have you smoked in the past 12 months: No If you are a former smoker, when did you quit?: 1990 - Social History ADL: Independent 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 History of Recent Travel: No Home Medications - Allergies Allergies/Adverse Reactions: Allergies Allergy/AdvReac Type Severity Reaction Status Date / Time Penicillins Allergy Severe Verified 11/02/18 13:07 - Home Medications Home Medications: Ambulatory Orders Celecoxib [CeleBREX -] 200 mg PO DAILY 03/11/13 Clopidogrel Bisulfate [Plavix -] 75 mg PO DAILY 03/11/13 Isosorbide Mononitrate [Imdur] 120 mg PO DAILY 03/11/13 Metoprolol Succinate [Toprol XL -] 50 mg PO DAILY 03/11/13 Zolpidem Tartrate [Ambien] 10 mg PO HS 03/11/13 metFORMIN HCL [Glucophage -] 500 mg PO BID 03/11/13 Apixaban [Eliquis] 5 mg PO BID 03/19/18 Diltiazem HCl [Cartia Xt] 120 mg PO DAILY 03/19/18 Nortriptyline HCl [Pamelor -] 25 mg PO HS 03/19/18 Amiodarone HCl [Cordarone -] 200 mg PO DAILY 04/28/18 Atorvastatin Ca [Lipitor] 20 mg PO DAILY 04/28/18 Cholecalciferol (Vitamin D3) [Vitamin D3] 1,000 unit PO DAILY 04/28/18 Magnesium Oxide [Magnesium] 400 mg PO DAILY 04/28/18 Melatonin 1 mg PO DAILY 04/28/18 Niacin 100 mg PO DAILY 04/28/18 Turmeric/Turmeric Ext/Pepr Ext [Turmeric Complex 500 mg Cap] 1 each PO DAILY 04/10 Zinc 220 mg PO DAILY 04/28/18 Family Disease History - Family Disease History Family Disease History: Other: Father ( (52) [place]), Mother ( (48) colon cancer), Brother ( (50s) [place]) Other Family History: Sister (78) DMII, [place]. Sister alive (80) Gastric ulcers, DMII Physical Exam Vital Signs: Vital Signs Temperature 97.8 F 11/03/18 14:08 Pulse Rate 65 11/03/18 14:08 Respiratory Rate 18 11/03/18 14:08 Blood Pressure 141/73 11/03/18 14:08 O2 Sat by Pulse Oximetry (%) 96 11/03/18 14:08 Labs: CBC, BMP 11/03/18 07:35 11/03/18 07:35
[2018-11-03] MEDS ORDERED: ERTAPENEM SODIUM 1 GM/50 ML PRE-DOCKED IVPB SCH (17:15)
[2018-11-03] MEDS ORDERED: ERTAPENEM SODIUM 1 GM in SODIUM CHLORIDE 50 ML IVPB SCH (17:30)
[2018-11-03] MEDS: ERTAPENEM SODIUM - 1 GRAM 1 GM/50 ML BAG IVPB SCH (17:47)
[2018-11-03] MEDS: ATORVASTATIN CA 20 MG TABLET (FP) PO SCH (21:14)
[2018-11-03] MEDS: MELATONIN 1 MG TABLET PO SCH (21:14)
[2018-11-03] MEDS: ZOLPIDEM TARTRATE 5 MG TABLET PO PRN (21:14)
[2018-11-04] MEDS: INSULIN SLIDING SCALE (NOVOLOG) 1 VIAL SQ SCH ×3 (06:42→22:42)
[2018-11-04 08:02] LABS: ALBUMIN 2.6 g/dl (3.5-5.0); ALK PHOS 56 U/L (32-92); ANION GAP 7 MMOL/L (8-16); BILIRUBIN,TOTAL 0.9 mg/dl (0.2-1.0); BLOOD UREA NITROGEN 20 mg/dl (7-18); CALCIUM 8.2 mg/dl (8.4-10.2); CHLORIDE 105 mmol/L (98-107); CO2 24 mmol/L (22-28); CREATININE 1.3 mg/dl (0.6-1.3); GLUCOSE,RANDOM 90 mg/dl (74-106); MAGNESIUM 1.4 mg/dL (1.8-2.4); POTASSIUM 4.3 mmol/L (3.5-5.1); SGOT/AST 63 U/L (10-42); SGPT/ALT 85 U/L (10-40); SODIUM 136 mmol/L (136-145); TOT PROT 5.7 g/dl (6.4-8.3)
[2018-11-04 08:05] LABS: BASO % 0.3 % (0-2.0); EOS % 6.1 % (0-4.5); HEMOGLOBIN 12.7 GM/dl (11.7-16.9); LYMPH % 12.8 % (8-40); MCH 33.3 pg (25.7-33.7); MCHC 34.2 g/dl (32.0-35.9); MEAN CELL VOLUME 97.3 fl (80-96); MEAN PLT VOLUME 8.5 fl (7.5-11.1); MONO % 10.4 % (3.8-10.2); NEUT % 70.4 % (42.8-82.8); PLATELET COUNT 173 K/MM3 (134-434); RDW 13.1 % (11.9-15.9); WHITE BLOOD COUNT 7.2 K/mm3 (4.0-10.8)
[2018-11-04] MEDS ORDERED: ACETAMINOPHEN 325 MG TABLET (FP) PO PRN (09:00)
--- NOTE | 2018-11-04 09:02 | PN ---
Physical Exam: SUBJECTIVE: Patient seen and examined at bedside. Pain in left leg is worse today. OBJECTIVE: Vital Signs Period Temp Pulse Resp BP Sys/Bella Pulse Ox Last 24 Hr 97.8 F-98.7 F 59-68 18-19 97-141/61-73 95-97 GENERAL: The patient is awake, alert, and fully oriented, in no acute distress. LUNGS: Breath sounds equal, clear to auscultation bilaterally, no wheezes, no crackles, no accessory muscle use. HEART: Regular rate and rhythm, S1, S2 ABDOMEN: Soft, nontender, nondistended UPPER EXTREMITIES: 2+ pulses, warm, well-perfused, no edema. LOWER EXTREMITIES: LEFT: deep erythema extending further into ankle/foot, swelling is increased, skin tightness LLE; 2+DP pulse NEUROLOGICAL: Cranial nerves II through XII grossly intact. Normal speech; moves all extremities freely Laboratory Results - last 24 hr 11/03/18 11/03/18 11/03/18 07:05 07:35 07:35 WBC RBC Hgb Hct MCV MCH MCHC RDW Plt Count MPV Absolute Neuts (auto) Neutrophils % Lymphocytes % Monocytes % Eosinophils % Basophils % ESR PTT (Actin FS) Sodium Potassium Chloride Carbon Dioxide Anion Gap BUN Creatinine Creat Clearance w eGFR POC Glucometer Random Glucose Hemoglobin A1c % 6.1 Calcium Magnesium Total Bilirubin AST ALT Alkaline Phosphatase C-Reactive Protein B-Natriuretic Peptide 1518.2 H Total Protein Albumin Random Vancomycin Blood Type A POSITIVE Antibody Screen Negative 11/03/18 11/03/18 11/03/18 07:35 07:39 07:39 WBC RBC Hgb Hct MCV MCH MCHC RDW Plt Count MPV Absolute Neuts (auto) Neutrophils % Lymphocytes % Monocytes % Eosinophils % Basophils % ESR 38 H PTT (Actin FS) 32.0 Sodium Potassium Chloride Carbon Dioxide Anion Gap BUN Creatinine Creat Clearance w eGFR POC Glucometer Random Glucose Hemoglobin A1c % Calcium Magnesium Total Bilirubin AST ALT Alkaline Phosphatase C-Reactive Protein 18.2 H B-Natriuretic Peptide Total Protein Albumin Random Vancomycin Blood Type Antibody Screen 11/03/18 11/03/18 11/03/18 11:48 14:20 16:59 WBC RBC Hgb Hct MCV MCH MCHC RDW Plt Count MPV Absolute Neuts (auto) Neutrophils % Lymphocytes % Monocytes % Eosinophils % Basophils % ESR PTT (Actin FS) Sodium Potassium Chloride Carbon Dioxide Anion Gap BUN Creatinine Creat Clearance w eGFR POC Glucometer 88 111 Random Glucose Hemoglobin A1c % Calcium Magnesium Total Bilirubin AST ALT Alkaline Phosphatase C-Reactive Protein B-Natriuretic Peptide Total Protein Albumin Random Vancomycin Cancelled Blood Type Antibody Screen 11/04/18 11/04/18 11/04/18 06:16 07:15 07:15 WBC 7.2 RBC 3.80 L Hgb 12.7 Hct 37.0 MCV 97.3 H MCH 33.3 MCHC 34.2 RDW 13.1 Plt Count 173 MPV 8.5 Absolute Neuts (auto) 5.1 Neutrophils % 70.4 Lymphocytes % 12.8 D Monocytes % 10.4 H Eosinophils % 6.1 H Basophils % 0.3 ESR PTT (Actin FS) Sodium 136 Potassium 4.3 Chloride 105 Carbon Dioxide 24 D Anion Gap 7 L BUN 20 H Creatinine 1.3 Creat Clearance w eGFR 54.42 POC Glucometer 93 Random Glucose 90 D Hemoglobin A1c % Calcium 8.2 L Magnesium 1.4 L Total Bilirubin 0.9 AST 63 H D ALT 85 H D Alkaline Phosphatase 56 C-Reactive Protein B-Natriuretic Peptide Total Protein 5.7 L Albumin 2.6 L Random Vancomycin Blood Type Antibody Screen Active Medications Generic Name Dose Route Start Last Admin Trade Name Freq PRN Reason Stop Dose Admin Acetaminophen 650 mg 11/04/18 09:00 Tylenol - PO Q6H PRN PAIN LEVEL 6-10 Amiodarone HCl 200 mg 11/03/18 10:00 11/03/18 09:57 Cordarone - PO 200 mg DAILY NATI Administration Apixaban 5 mg 11/02/18 22:00 11/03/18 21:14 Eliquis - PO 5 mg BID NATI Administration Atorvastatin Calcium 20 mg 11/02/18 22:00 11/03/18 21:14 Lipitor - PO 20 mg HS NATI Administration Cholecalciferol 1,000 unit 11/03/18 10:00 11/03/18 09:53 Vitamin D3 - PO 1,000 unit DAILY NATI Administration Clopidogrel Bisulfate 75 mg 11/03/18 10:00 11/03/18 09:52 Plavix - PO 75 mg DAILY NATI Administration Diltiazem HCl 120 mg 11/03/18 10:00 11/03/18 09:55 Cardizem Cd - PO 120 mg DAILY NATI Administration Ertapenem 1 gm in 50 mls @ 100 mls/hr 11/03/18 17:45 12/11/18 17:47 Invanz (Pre-Docked) IVPB 100 mls/hr DAILY NATI Administration Insulin Aspart 1 vial 11/03/18 07:00 11/04/18 06:42 Novolog Vial Sliding Scale - SQ Not Given ACHS [facility] Protocol Isosorbide Mononitrate 120 mg 11/03/18 10:00 11/03/18 09:53 Imdur - PO 120 mg DAILY NATI Administration Magnesium Oxide 400 mg 11/03/18 10:00 11/03/18 09:52 Mag-Ox - PO 400 mg DAILY NATI Administration Melatonin 1 mg 11/02/18 22:00 11/03/18 21:14 Melatonin PO Not Given HS NATI Oxycodone HCl 5 mg 11/04/18 09:00 Roxicodone - PO Q6H PRN PAIN LEVEL 1-5 ASSESSMENT/PLAN: 73 year-old male with a PMH significant for HTN, HLD, CAD s/p CABG x 3 (2001), afib on Eliquis, s/p right carotid endarterectomies x 3 (1997, 2001, 2008) CVA x 2, and peripheral arterial disease s/p iliac vein stent (2018). Admitted for left lower extremity cellulitis LLE Cellulitis --11/03 MRI: circumferential subq soft tissue edema of the calf; no focal fluid collection, no osteo --leg worse today, increased pain and swelling --afebrile, no leukocytosis --contiue ertapenem (day #2) Hypertension --BP stable --continue diltiazem Hyperlipidemia --continue atrovastatin, niacin Coronary artery disease s/p CABG Carotid artery disease s/p right endarterectomies --continue Plavix --NOT on ASA Cerebrovascular disease --s/p two "mini" strokes which occurred in course of endarterectomies Peripheral arterial disease --s/p iliac stents Atrial fibrillation --ECG: sinus eriberto @ 53bpm --continue amiodarone --continue diltiazem --on Eliquis CKD --Cr 2.4 on admission likely due to decreased PO intake, 1.3 today Pulmonary fibrosis --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 Full code. Visit type - Emergency Visit Emergency Visit: Yes ED Registration Date: 11/02/18 Care time: The patient presented to the Emergency Department on the above date and was hospitalized for further evaluation of their emergent condition. - New Patient This patient is new to me today: No - Critical Care Critical Care patient: No
[2018-11-04] MEDS: MAGNESIUM OXIDE 400 MG TABLET (FP) PO SCH (09:25)
[2018-11-04] MEDS: CLOPIDOGREL BISULFATE 75 MG TABLET (FP) PO SCH (09:25)
[2018-11-04] MEDS: AMIODARONE HCL 200 MG TABLET (FP) PO SCH (09:26)
[2018-11-04] MEDS: oxyCODONE HCL 5 MG TABLET PO PRN ×2 (09:26→17:53)
[2018-11-04] MEDS: CHOLECALCIFEROL (VITAMIN D3) 1,000 UNIT TABLET (FP) PO SCH (09:26)
[2018-11-04] MEDS: ISOSORBIDE MONONITRATE 60 MG TAB.SR.24H (FP) PO SCH (09:27)
[2018-11-04] MEDS: APIXABAN 5 MG TABLET PO SCH ×2 (09:27→21:18)
[2018-11-04] MEDS: ERTAPENEM SODIUM - 1 GRAM 1 GM/50 ML BAG IVPB SCH (09:27)
[2018-11-04] MEDS ORDERED: MAGNESIUM SULF 50% (8.12 MEQ/2 ML-1 GM VIAL) IVPB ONE (10:26)
[2018-11-04] MEDS ORDERED: MAGNESIUM SULFATE IN WATER 2 GM/50 ML IVPB IVPB ONE (11:00)
--- NOTE | 2018-11-04 12:53 | PN ---
Progress Note, Physician History of Present Illness: patients redness slightly better swelling also better c/o of pain i seems patient was able to walk on the leg now shooting type of pain - Current Medication List Current Medications: Active Medications Acetaminophen (Tylenol -) 650 mg PO Q6H PRN PRN Reason: PAIN LEVEL 6-10 Amiodarone HCl (Cordarone -) 200 mg PO DAILY [facility] Last Admin: 11/04/18 09:26 Dose: 200 mg Apixaban (Eliquis -) 5 mg PO BID [facility] Last Admin: 11/04/18 09:27 Dose: 5 mg Atorvastatin Calcium (Lipitor -) 20 mg PO HS [facility] Last Admin: 11/03/18 21:14 Dose: 20 mg Cholecalciferol (Vitamin D3 -) 1,000 unit PO DAILY [facility] Last Admin: 11/04/18 09:26 Dose: 1,000 unit Clopidogrel Bisulfate (Plavix -) 75 mg PO DAILY [facility] Last Admin: 11/04/18 09:25 Dose: 75 mg Diltiazem HCl (Cardizem Cd -) 120 mg PO DAILY [facility] Last Admin: 11/04/18 09:25 Dose: 120 mg Ertapenem (Invanz (Pre-Docked)) 1 gm in 50 mls @ 100 mls/hr IVPB DAILY [facility] Last Admin: 11/04/18 09:27 Dose: 100 mls/hr Insulin Aspart (Novolog Vial Sliding Scale -) 1 vial SQ ACHS [facility]; Protocol Last Admin: 11/04/18 06:42 Dose: Not Given Isosorbide Mononitrate (Imdur -) 120 mg PO DAILY [facility] Last Admin: 11/04/18 09:27 Dose: 120 mg Magnesium Oxide (Mag-Ox -) 400 mg PO DAILY [facility] Last Admin: 11/04/18 09:25 Dose: 400 mg Melatonin (Melatonin) 1 mg PO HS [facility] Last Admin: 11/03/18 21:14 Dose: Not Given Oxycodone HCl (Roxicodone -) 5 mg PO Q6H PRN PRN Reason: PAIN LEVEL 6-10 Last Admin: 11/04/18 09:26 Dose: 5 mg - Objective Vital Signs: Vital Signs Temperature 98.0 F 11/04/18 05:00 Pulse Rate 64 11/04/18 05:00 Respiratory Rate 19 11/04/18 05:00 Blood Pressure 113/66 11/04/18 05:00 O2 Sat by Pulse Oximetry (%) 95 11/04/18 06:23 Constitutional: Yes: Calm Eyes: Yes: Conjunctiva Clear Cardiovascular: Yes: Regular Rate and Rhythm Respiratory: Yes: Regular, CTA Bilaterally Musculoskeletal: Yes: WNL Extremities: Yes: Erythema Neurological: Yes: Alert, Oriented Psychiatric: Yes: Alert, Oriented Labs: CBC, BMP 11/04/18 07:15 11/04/18 07:15 INR, PTT INR 2.03 (0.82-1.09) H 11/03/18 07:35 Assessment/Plan Problem List - Problems (1) HLD (hyperlipidemia) Code(s): E78.5 - HYPERLIPIDEMIA, UNSPECIFIED Qualifiers: Hyperlipidemia type: pure hypercholesterolemia Qualified Code(s): E78.00 - Pure hypercholesterolemia, unspecified; E78.0 - Pure hypercholesterolemia (2) Atrial fibrillation Code(s): I48.91 - UNSPECIFIED ATRIAL FIBRILLATION (3) CAD in [place] artery Code(s): I25.10 - ATHSCL HEART DISEASE OF [place] CORONARY ARTERY W/O ANG PCTRS (4) Acute on chronic kidney failure Code(s): N17.9 - ACUTE KIDNEY FAILURE, UNSPECIFIED; N18.9 - CHRONIC KIDNEY DISEASE, UNSPECIFIED Qualifiers: Acute renal failure type: unspecified Chronic kidney disease stage: unspecified stage Qualified Code(s): N17.9 - Acute kidney failure, unspecified ; N18.9 - Chronic kidney disease, unspecified (5) Cellulitis Code(s): L03.90 - CELLULITIS, UNSPECIFIED Qualifiers: Site of cellulitis: extremity Site of cellulitis of extremity: lower extremity Laterality: left Qualified Code(s): L03.116 - Cellulitis of left lower limb (6) Sepsis Code(s): A41.9 - SEPSIS, UNSPECIFIED ORGANISM Qualifiers: Sepsis type: sepsis due to unspecified organism Qualified Code(s): A41.9 - Sepsis, unspecified organism (7) Insomnia disorder Code(s): G47.00 - INSOMNIA, UNSPECIFIED (8) DM type 2 (diabetes mellitus, type 2) Code(s): E11.9 - TYPE 2 DIABETES MELLITUS WITHOUT COMPLICATIONS Qualifiers: Diabetes mellitus halfway insulin use: without halfway use plan continue ertapenam monitor swelling and cellulitis if not improving will add vanco rest as per the team
[2018-11-04] MEDS ORDERED: ZOLPIDEM TARTRATE 5 MG TABLET PO ONE (20:00)
[2018-11-04] MEDS: ATORVASTATIN CA 20 MG TABLET (FP) PO SCH (21:18)
[2018-11-04] MEDS: MELATONIN 1 MG TABLET PO SCH (21:18)
[2018-11-05] MEDS: INSULIN SLIDING SCALE (NOVOLOG) 1 VIAL SQ SCH ×4 (06:54→21:07)
[2018-11-05] MEDS: oxyCODONE HCL 5 MG TABLET PO PRN (06:59)
--- NOTE | 2018-11-05 08:05 | PN ---
Physical Exam: SUBJECTIVE: Patient seen and examined at bedside. Pain is better controlled with oxycodone PRN. Has been ambulating in hallway. OBJECTIVE: Vital Signs Period Temp Pulse Resp BP Sys/Bella Pulse Ox Last 24 Hr 97.4 F-98.2 F 56-77 17-19 98-145/62-75 93-97 GENERAL: The patient is awake, alert, and fully oriented, in no acute distress. LUNGS: Breath sounds equal, clear to auscultation bilaterally, no wheezes, no crackles, no accessory muscle use. HEART: Regular rate and rhythm, S1, S2 ABDOMEN: Soft, nontender, nondistended UPPER EXTREMITIES: 2+ pulses, warm, well-perfused, no edema. LOWER EXTREMITIES: LEFT: erythema and swelling resolving, 2+ DP pulse NEUROLOGICAL: Cranial nerves II through XII grossly intact. Normal speech; moves all extremities freely Laboratory Results - last 24 hr 11/04/18 11/04/18 11/04/18 07:15 07:15 18:26 WBC 7.2 RBC 3.80 L Hgb 12.7 Hct 37.0 MCV 97.3 H MCH 33.3 MCHC 34.2 RDW 13.1 Plt Count 173 MPV 8.5 Absolute Neuts (auto) 5.1 Neutrophils % 70.4 Lymphocytes % 12.8 D Monocytes % 10.4 H Eosinophils % 6.1 H Basophils % 0.3 Sodium 136 Potassium 4.3 Chloride 105 Carbon Dioxide 24 D Anion Gap 7 L BUN 20 H Creatinine 1.3 Creat Clearance w eGFR 54.42 POC Glucometer 124 Random Glucose 90 D Calcium 8.2 L Magnesium 1.4 L Total Bilirubin 0.9 AST 63 H D ALT 85 H D Alkaline Phosphatase 56 Total Protein 5.7 L Albumin 2.6 L 11/04/18 11/05/18 21:26 06:51 WBC RBC Hgb Hct MCV MCH MCHC RDW Plt Count MPV Absolute Neuts (auto) Neutrophils % Lymphocytes % Monocytes % Eosinophils % Basophils % Sodium Potassium Chloride Carbon Dioxide Anion Gap BUN Creatinine Creat Clearance w eGFR POC Glucometer 93 102 Random Glucose Calcium Magnesium Total Bilirubin AST ALT Alkaline Phosphatase Total Protein Albumin Active Medications Generic Name Dose Route Start Last Admin Trade Name Freq PRN Reason Stop Dose Admin Acetaminophen 650 mg 11/04/18 09:00 Tylenol - PO Q6H PRN PAIN LEVEL 6-10 Amiodarone HCl 200 mg 11/03/18 10:00 11/04/18 09:26 Cordarone - PO 200 mg DAILY [facility] Administration Apixaban 5 mg 11/02/18 22:00 11/04/18 21:18 Eliquis - PO 5 mg BID [facility] Administration Atorvastatin Calcium 20 mg 11/02/18 22:00 11/04/18 21:18 Lipitor - PO 20 mg HS [facility]I Administration Cholecalciferol 1,000 unit 11/03/18 10:00 11/04/18 09:26 Vitamin D3 - PO 1,000 unit DAILY [facility] Administration Clopidogrel Bisulfate 75 mg 11/03/18 10:00 11/04/18 09:25 Plavix - PO 75 mg DAILY [facility] Administration Diltiazem HCl 120 mg 11/03/18 10:00 11/04/18 09:25 Cardizem Cd - PO 120 mg DAILY [facility] Administration Ertapenem 1 gm in 50 mls @ 100 mls/hr 11/03/18 17:45 11/04/18 09:27 Invanz (Pre-Docked) IVPB 100 mls/hr DAILY [facility] Administration Insulin Aspart 1 vial 11/03/18 07:00 11/05/18 06:54 Novolog Vial Sliding Scale - SQ Not Given ACHS [facility] Protocol Isosorbide Mononitrate 120 mg 11/03/18 10:00 11/04/18 09:27 Imdur - PO 120 mg DAILY [facility] Administration Magnesium Oxide 400 mg 11/03/18 10:00 11/04/18 09:25 Mag-Ox - PO 400 mg DAILY [facility] Administration Melatonin 1 mg 11/02/18 22:00 11/04/18 21:18 Melatonin PO Not Given HS [facility] Oxycodone HCl 5 mg 11/04/18 09:00 11/05/18 06:59 Roxicodone - PO 5 mg Q6H PRN Administration PAIN LEVEL 6-10 ASSESSMENT/PLAN: 73 year-old male with a PMH significant for HTN, HLD, CAD s/p CABG x 3 (2001), afib on Eliquis, s/p right carotid endarterectomies x 3 (1997, 2001, 2008) CVA x 2, and peripheral arterial disease s/p iliac vein stent (2017). Admitted for left lower extremity cellulitis. LLE Cellulitis --11/03 MRI: circumferential subq soft tissue edema of the calf; no focal fluid collection, no osteo --leg improved, swelling and erythema resolving --afebrile, no leukocytosis --contiue ertapenem (day #3) Hypertension --BP stable --continue diltiazem Hyperlipidemia --continue atrovastatin, niacin Coronary artery disease s/p CABG Carotid artery disease s/p right endarterectomies --continue Plavix --NOT on ASA Cerebrovascular disease --s/p two "mini" strokes which occurred in course of endarterectomies Peripheral arterial disease --s/p iliac stents Atrial fibrillation --11/05 ECG: sinus rhythm @74bpm --continue amiodarone --continue diltiazem --on Eliquis --d/c telemetry CKD --Cr 2.4 on admission, now 1.3 Pulmonary fibrosis --has been told secondary to amiodarone --uses O2 at home PRN Decreased appetite --nutrition consult, patient education done, encourage small, nutritious meals/snacks --defer appetite stimulant for now DVT prophylaxis: on Eliquis Physical therapy Dispo: continues to require inpatient care. Full code. Visit type - Emergency Visit Emergency Visit: Yes ED Registration Date: 11/02/18 Care time: The patient presented to the Emergency Department on the above date and was hospitalized for further evaluation of their emergent condition. - New Patient This patient is new to me today: No - Critical Care Critical Care patient: No
[2018-11-05] MEDS: CLOPIDOGREL BISULFATE 75 MG TABLET (FP) PO SCH (09:18)
[2018-11-05] MEDS: CHOLECALCIFEROL (VITAMIN D3) 1,000 UNIT TABLET (FP) PO SCH (09:18)
[2018-11-05] MEDS: MAGNESIUM OXIDE 400 MG TABLET (FP) PO SCH (09:18)
[2018-11-05] MEDS: AMIODARONE HCL 200 MG TABLET (FP) PO SCH (09:18)
[2018-11-05] MEDS: ISOSORBIDE MONONITRATE 60 MG TAB.SR.24H (FP) PO SCH (09:19)
[2018-11-05] MEDS: APIXABAN 5 MG TABLET PO SCH ×2 (09:19→21:07)
[2018-11-05] MEDS: ERTAPENEM SODIUM - 1 GRAM 1 GM/50 ML BAG IVPB SCH (09:20)
--- NOTE | 2018-11-05 12:51 | EKG ---
Test Reason : Blood Pressure : / mmHG Vent. Rate : 074 BPM Atrial Rate : 074 BPM P-R Int : 198 ms QRS Dur : 104 ms QT Int : 440 ms P-R-T Axes : 083 -42 086 degrees QTc Int : 488 ms NORMAL SINUS RHYTHM LEFT AXIS DEVIATION POSSIBLE ANTERIOR INFARCT , AGE UNDETERMINED ABNORMAL ECG WHEN COMPARED WITH ECG OF 02-NOV-2018 15:37, QT HAS LENGTHENED Confirmed by YOU CORNELIUS, ANA ([id number]) on 11/05/2018 12:51:27 PM Referred By: SHEREE BRIONES Confirmed By:ANA ORTA MD
--- NOTE | 2018-11-05 16:37 | PN ---
Progress Note, Physician History of Present Illness: swelling and erythema has improved a lot still pain with bearing of weight - Current Medication List Current Medications: Active Medications Acetaminophen (Tylenol -) 650 mg PO Q6H PRN PRN Reason: PAIN LEVEL 6-10 Amiodarone HCl (Cordarone -) 200 mg PO DAILY [facility] Last Admin: 11/05/18 09:18 Dose: 200 mg Apixaban (Eliquis -) 5 mg PO BID [facility] Last Admin: 11/05/18 09:19 Dose: 5 mg Atorvastatin Calcium (Lipitor -) 20 mg PO HS [facility] Last Admin: 11/04/18 21:18 Dose: 20 mg Cholecalciferol (Vitamin D3 -) 1,000 unit PO DAILY [facility] Last Admin: 11/05/18 09:18 Dose: 1,000 unit Clopidogrel Bisulfate (Plavix -) 75 mg PO DAILY [facility] Last Admin: 11/05/18 09:18 Dose: 75 mg Diltiazem HCl (Cardizem Cd -) 120 mg PO DAILY [facility] Last Admin: 11/05/18 09:18 Dose: 120 mg Ertapenem (Invanz (Pre-Docked)) 1 gm in 50 mls @ 100 mls/hr IVPB DAILY [facility] Last Admin: 11/05/18 09:20 Dose: 100 mls/hr Insulin Aspart (Novolog Vial Sliding Scale -) 1 vial SQ ACHS [facility]; Protocol Last Admin: 11/05/18 06:54 Dose: Not Given Isosorbide Mononitrate (Imdur -) 120 mg PO DAILY [facility] Last Admin: 11/05/18 09:19 Dose: 120 mg Magnesium Oxide (Mag-Ox -) 400 mg PO DAILY [facility] Last Admin: 11/05/18 09:18 Dose: 400 mg Melatonin (Melatonin) 1 mg PO HS [facility] Last Admin: 11/04/18 21:18 Dose: Not Given Oxycodone HCl (Roxicodone -) 5 mg PO Q6H PRN PRN Reason: PAIN LEVEL 6-10 Last Admin: 11/05/18 06:59 Dose: 5 mg - Objective Vital Signs: Vital Signs Temperature 97.8 F 11/05/18 14:00 Pulse Rate 68 11/05/18 14:00 Respiratory Rate 18 11/05/18 14:00 Blood Pressure 103/81 11/05/18 14:00 O2 Sat by Pulse Oximetry (%) 98 11/05/18 14:00 Constitutional: Yes: No Distress, Calm Cardiovascular: Yes: S1, S2 Respiratory: Yes: Regular, CTA Bilaterally Gastrointestinal: Yes: Normal Bowel Sounds, Soft Musculoskeletal: Yes: WNL Extremities: Yes: Erythema (improving) Integumentary: Yes: Erythema, Other Neurological: Yes: Alert, Oriented Labs: CBC, BMP 11/04/18 07:15 11/04/18 07:15 INR, PTT INR 2.03 (0.82-1.09) H 11/03/18 07:35 - ....Imaging MRI: Report Reviewed, Image Reviewed Assessment/Plan Problem List - Problems (1) HLD (hyperlipidemia) Code(s): E78.5 - HYPERLIPIDEMIA, UNSPECIFIED Qualifiers: Hyperlipidemia type: pure hypercholesterolemia Qualified Code(s): E78.00 - Pure hypercholesterolemia, unspecified; E78.0 - Pure hypercholesterolemia (2) Atrial fibrillation Code(s): I48.91 - UNSPECIFIED ATRIAL FIBRILLATION (3) CAD in [place] artery Code(s): I25.10 - ATHSCL HEART DISEASE OF [place] CORONARY ARTERY W/O ANG PCTRS (4) Acute on chronic kidney failure Code(s): N17.9 - ACUTE KIDNEY FAILURE, UNSPECIFIED; N18.9 - CHRONIC KIDNEY DISEASE, UNSPECIFIED Qualifiers: Acute renal failure type: unspecified Chronic kidney disease stage: unspecified stage Qualified Code(s): N17.9 - Acute kidney failure, unspecified ; N18.9 - Chronic kidney disease, unspecified (5) Cellulitis Code(s): L03.90 - CELLULITIS, UNSPECIFIED Qualifiers: Site of cellulitis: extremity Site of cellulitis of extremity: lower extremity Laterality: left Qualified Code(s): L03.116 - Cellulitis of left lower limb (6) Sepsis Code(s): A41.9 - SEPSIS, UNSPECIFIED ORGANISM Qualifiers: Sepsis type: sepsis due to unspecified organism Qualified Code(s): A41.9 - Sepsis, unspecified organism (7) Insomnia disorder Code(s): G47.00 - INSOMNIA, UNSPECIFIED (8) DM type 2 (diabetes mellitus, type 2) Code(s): E11.9 - TYPE 2 DIABETES MELLITUS WITHOUT COMPLICATIONS Qualifiers: Diabetes mellitus termite treater insulin use: without prison use plan continue ertapenam cellulitis improved leg elevation rest as per the team
[2018-11-05] MEDS: ATORVASTATIN CA 20 MG TABLET (FP) PO SCH (21:07)
[2018-11-05] MEDS: MELATONIN 1 MG TABLET PO SCH (21:08)
[2018-11-05] MEDS ORDERED: ZOLPIDEM TARTRATE 5 MG TABLET PO ONE (23:00)
[2018-11-06] MEDS: INSULIN SLIDING SCALE (NOVOLOG) 1 VIAL SQ SCH ×3 (06:47→18:07)
--- NOTE | 2018-11-06 09:55 | PN ---
Physical Exam: SUBJECTIVE: Patient seen and examined oob to chair. Has pain with ambulation. Feeling discouraged. OBJECTIVE: Vital Signs Period Temp Pulse Resp BP Sys/Bella Pulse Ox Last 24 Hr 97.8 F-98.7 F 68-91 18-19 103-123/59-81 91-98 GENERAL: The patient is awake, alert, and fully oriented, in no acute distress. LUNGS: Breath sounds equal, clear to auscultation bilaterally, no wheezes, no crackles, no accessory muscle use. HEART: Regular rate and rhythm, S1, S2 ABDOMEN: Soft, nontender, nondistended UPPER EXTREMITIES: 2+ pulses, warm, well-perfused, no edema. LOWER EXTREMITIES: LEFT: little change in erythema and swelling from yesterday NEUROLOGICAL: Cranial nerves II through XII grossly intact. Normal speech; moves all extremities freely Laboratory Results - last 24 hr 11/05/18 11/05/18 11/06/18 17:58 20:57 06:35 POC Glucometer 103 103 116 Active Medications Generic Name Dose Route Start Last Admin Trade Name Freq PRN Reason Stop Dose Admin Acetaminophen 650 mg 11/04/18 09:00 Tylenol - PO Q6H PRN PAIN LEVEL 6-10 Amiodarone HCl 200 mg 11/03/18 10:00 11/05/18 09:18 Cordarone - PO 200 mg DAILY [facility] Administration Apixaban 5 mg 11/02/18 22:00 11/05/18 21:07 Eliquis - PO 5 mg BID [facility] Administration Atorvastatin Calcium 20 mg 11/02/18 22:00 11/05/18 21:07 Lipitor - PO 20 mg HS [facility] Administration Cholecalciferol 1,000 unit 11/03/18 10:00 11/05/18 09:18 Vitamin D3 - PO 1,000 unit DAILY [facility] Administration Clopidogrel Bisulfate 75 mg 11/03/18 10:00 11/05/18 09:18 Plavix - PO 75 mg DAILY [facility] Administration Diltiazem HCl 120 mg 11/03/18 10:00 11/05/18 09:18 Cardizem Cd - PO 120 mg DAILY [facility] Administration Ertapenem 1 gm in 50 mls @ 100 mls/hr 11/03/18 17:45 11/05/18 09:20 Invanz (Pre-Docked) IVPB 100 mls/hr DAILY [facility] Administration Insulin Aspart 1 vial 11/03/18 07:00 11/06/18 06:47 Novolog Vial Sliding Scale - SQ Not Given ACHS [facility] Protocol Isosorbide Mononitrate 120 mg 11/03/18 10:00 11/05/18 09:19 Imdur - PO 120 mg DAILY [facility] Administration Magnesium Oxide 400 mg 11/03/18 10:00 11/05/18 09:18 Mag-Ox - PO 400 mg DAILY [facility] Administration Melatonin 1 mg 11/02/18 22:00 11/05/18 21:08 Melatonin PO Not Given HS [facility] Oxycodone HCl 5 mg 11/04/18 09:00 11/05/18 06:59 Roxicodone - PO 5 mg Q6H PRN Administration PAIN LEVEL 6-10 Imaging 11/03 MRI: circumferential subq soft tissue edema of the calf; no focal fluid collection, no osteo ASSESSMENT/PLAN: 73 year-old male with a PMH significant for HTN, HLD, CAD s/p CABG x 3 (2001), afib on Eliquis, s/p right carotid endarterectomies x 3 (1997, 2001, 2008) CVA x 2, and peripheral arterial disease s/p iliac vein stent (2017). Admitted for left lower extremity cellulitis. LLE Cellulitis --slowly improving --afebrile, no leukocytosis --contiue ertapenem (day #4) Hypertension --BP stable --continue diltiazem Hyperlipidemia --continue atrovastatin, niacin Coronary artery disease s/p CABG Carotid artery disease s/p right endarterectomies --continue Plavix --NOT on ASA Cerebrovascular disease --s/p two "mini" strokes which occurred in course of endarterectomies Peripheral arterial disease --s/p iliac stents Atrial fibrillation --11/05 ECG: sinus rhythm @74bpm --continue amiodarone --continue diltiazem --on Eliquis --d/c telemetry CKD --Cr 2.4 on admission, now 1.3 Pulmonary fibrosis --has been told secondary to amiodarone --uses O2 at home PRN Decreased appetite --nutrition consult, patient education done, encourage small, nutritious meals/snacks --defer appetite stimulant for now DVT prophylaxis: on Eliquis Physical therapy Dispo: continues to require inpatient care. Full code. Visit type - Emergency Visit Emergency Visit: Yes ED Registration Date: 11/02/18 Care time: The patient presented to the Emergency Department on the above date and was hospitalized for further evaluation of their emergent condition. - New Patient This patient is new to me today: No - Critical Care Critical Care patient: No
[2018-11-06] MEDS: CHOLECALCIFEROL (VITAMIN D3) 1,000 UNIT TABLET (FP) PO SCH (10:03)
[2018-11-06] MEDS: APIXABAN 5 MG TABLET PO SCH ×2 (10:03→22:00)
[2018-11-06] MEDS: ISOSORBIDE MONONITRATE 60 MG TAB.SR.24H (FP) PO SCH (10:04)
[2018-11-06] MEDS: CLOPIDOGREL BISULFATE 75 MG TABLET (FP) PO SCH (10:04)
[2018-11-06] MEDS: MAGNESIUM OXIDE 400 MG TABLET (FP) PO SCH (10:04)
[2018-11-06] MEDS: ERTAPENEM SODIUM - 1 GRAM 1 GM/50 ML BAG IVPB SCH (10:04)
[2018-11-06] MEDS: AMIODARONE HCL 200 MG TABLET (FP) PO SCH (10:05)
[2018-11-06 10:23] LABS: BASO % 0.2 % (0-2.0); EOS % 2.8 % (0-4.5); HEMATOCRIT 39.2 % (35.4-49); HEMOGLOBIN 13.1 GM/dl (11.7-16.9); LYMPH % 7.9 % (8-40); MCH 32.4 pg (25.7-33.7); MCHC 33.3 g/dl (32.0-35.9); MEAN CELL VOLUME 97.2 fl (80-96); MONO % 10.8 % (3.8-10.2); NEUT % 78.3 % (42.8-82.8); PLATELET COUNT 242 K/MM3 (134-434); RBC 4.03 M/mm3 (4.00-5.60); RDW 13.3 % (11.9-15.9); WHITE BLOOD COUNT 9.7 K/mm3 (4.0-10.8)
[2018-11-06 10:53] LABS: ALBUMIN 2.8 g/dl (3.5-5.0); ALK PHOS 75 U/L (32-92); ANION GAP 5 MMOL/L (8-16); BILIRUBIN,TOTAL 0.9 mg/dl (0.2-1.0); BLOOD UREA NITROGEN 18 mg/dl (7-18); CALCIUM 8.7 mg/dl (8.4-10.2); CHLORIDE 105 mmol/L (98-107); CO2 24 mmol/L (22-28); CREATININE 1.2 mg/dl (0.6-1.3); GLUCOSE,RANDOM 124 mg/dl (74-106); MAGNESIUM 1.5 mg/dL (1.8-2.4); POTASSIUM 4.2 mmol/L (3.5-5.1); SGOT/AST 41 U/L (10-42); SGPT/ALT 63 U/L (10-40); SODIUM 134 mmol/L (136-145); TOT PROT 6.3 g/dl (6.4-8.3)
[2018-11-06] MEDS ORDERED: MAGNESIUM SULF 50% (8.12 MEQ/2 ML-1 GM VIAL) IVPB ONE (11:11)
[2018-11-06] MEDS ORDERED: MAGNESIUM SULFATE IN WATER 2 GM/50 ML IVPB IVPB ONE (12:00)
[2018-11-06] MEDS: ATORVASTATIN CA 20 MG TABLET (FP) PO SCH (22:01)
[2018-11-06] MEDS: ZOLPIDEM TARTRATE 5 MG TABLET PO PRN (22:01)
[2018-11-07 09:13] LABS: ANION GAP 9 MMOL/L (8-16); BLOOD UREA NITROGEN 20 mg/dl (7-18); CALCIUM 8.5 mg/dl (8.4-10.2); CHLORIDE 102 mmol/L (98-107); CO2 25 mmol/L (22-28); CREATININE 1.4 mg/dl (0.6-1.3); GLUCOSE,RANDOM 119 mg/dl (74-106); MAGNESIUM 1.9 mg/dL (1.8-2.4); POTASSIUM 4.4 mmol/L (3.5-5.1); SODIUM 136 mmol/L (136-145)
[2018-11-07] MEDS: APIXABAN 5 MG TABLET PO SCH ×2 (10:31→21:51)
[2018-11-07] MEDS: ISOSORBIDE MONONITRATE 60 MG TAB.SR.24H (FP) PO SCH (10:31)
[2018-11-07] MEDS: CLOPIDOGREL BISULFATE 75 MG TABLET (FP) PO SCH (10:31)
[2018-11-07] MEDS: AMIODARONE HCL 200 MG TABLET (FP) PO SCH (10:31)
[2018-11-07] MEDS: MAGNESIUM OXIDE 400 MG TABLET (FP) PO SCH (10:31)
[2018-11-07] MEDS: CHOLECALCIFEROL (VITAMIN D3) 1,000 UNIT TABLET (FP) PO SCH (10:32)
[2018-11-07] MEDS: ERTAPENEM SODIUM - 1 GRAM 1 GM/50 ML BAG IVPB SCH (10:32)
[2018-11-07] MEDS: oxyCODONE HCL 5 MG TABLET PO PRN (11:05)
--- NOTE | 2018-11-07 13:16 | PN ---
Progress Note, Physician History of Present Illness: patient stable swelling decreasing slowly erythema improving slowly still with swelling at the ankle joint - Current Medication List Current Medications: Active Medications Acetaminophen (Tylenol -) 650 mg PO Q6H PRN PRN Reason: PAIN LEVEL 6-10 Amiodarone HCl (Cordarone -) 200 mg PO DAILY [facility] Last Admin: 11/07/18 10:31 Dose: 200 mg Apixaban (Eliquis -) 5 mg PO BID [facility] Last Admin: 11/07/18 10:31 Dose: 5 mg Atorvastatin Calcium (Lipitor -) 20 mg PO HS [facility] Last Admin: 11/06/18 22:01 Dose: 20 mg Cholecalciferol (Vitamin D3 -) 1,000 unit PO DAILY [facility] Last Admin: 11/07/18 10:32 Dose: 1,000 unit Clopidogrel Bisulfate (Plavix -) 75 mg PO DAILY [facility] Last Admin: 11/07/18 10:31 Dose: 75 mg Diltiazem HCl (Cardizem Cd -) 120 mg PO DAILY [facility] Last Admin: 11/07/18 10:30 Dose: 120 mg Ertapenem (Invanz (Pre-Docked)) 1 gm in 50 mls @ 100 mls/hr IVPB DAILY [facility] Last Admin: 11/07/18 10:32 Dose: 100 mls/hr Insulin Aspart (Novolog Vial Sliding Scale -) 1 vial SQ ACHS [facility]; Protocol Last Admin: 11/06/18 18:07 Dose: Not Given Isosorbide Mononitrate (Imdur -) 120 mg PO DAILY [facility] Last Admin: 11/07/18 10:31 Dose: 120 mg Magnesium Oxide (Mag-Ox -) 400 mg PO DAILY [facility] Last Admin: 11/07/18 10:31 Dose: 400 mg Melatonin (Melatonin) 1 mg PO HS [facility] Last Admin: 11/05/18 21:08 Dose: Not Given Oxycodone HCl (Roxicodone -) 5 mg PO Q6H PRN PRN Reason: PAIN LEVEL 6-10 Last Admin: 11/05/18 06:59 Dose: 5 mg Zolpidem Tartrate (Ambien -) 5 mg PO HS PRN PRN Reason: INSOMNIA Last Admin: 11/06/18 22:01 Dose: 5 mg - Objective Vital Signs: Vital Signs Temperature 98.8 F 11/07/18 06:38 Pulse Rate 82 11/07/18 06:38 Respiratory Rate 19 11/07/18 06:38 Blood Pressure 109/52 L 11/07/18 06:38 O2 Sat by Pulse Oximetry (%) 93 L 11/06/18 22:00 Constitutional: Yes: No Distress, Calm Cardiovascular: Yes: Regular Rate and Rhythm Respiratory: Yes: Regular, CTA Bilaterally Gastrointestinal: Yes: Normal Bowel Sounds, Soft Integumentary: Yes: Erythema, Other (swollen leg) Neurological: Yes: Alert, Oriented Psychiatric: Yes: Alert, Oriented Labs: CBC, BMP 11/06/18 10:10 11/07/18 07:25 INR, PTT INR 2.03 (0.82-1.09) H 11/03/18 07:35 Assessment/Plan Problem List - Problems (1) HLD (hyperlipidemia) Code(s): E78.5 - HYPERLIPIDEMIA, UNSPECIFIED Qualifiers: Hyperlipidemia type: pure hypercholesterolemia Qualified Code(s): E78.00 - Pure hypercholesterolemia, unspecified; E78.0 - Pure hypercholesterolemia (2) Atrial fibrillation Code(s): I48.91 - UNSPECIFIED ATRIAL FIBRILLATION (3) CAD in [place] artery Code(s): I25.10 - ATHSCL HEART DISEASE OF [place] CORONARY ARTERY W/O ANG PCTRS (4) Acute on chronic kidney failure Code(s): N17.9 - ACUTE KIDNEY FAILURE, UNSPECIFIED; N18.9 - CHRONIC KIDNEY DISEASE, UNSPECIFIED Qualifiers: Acute renal failure type: unspecified Chronic kidney disease stage: unspecified stage Qualified Code(s): N17.9 - Acute kidney failure, unspecified ; N18.9 - Chronic kidney disease, unspecified (5) Cellulitis Code(s): L03.90 - CELLULITIS, UNSPECIFIED Qualifiers: Site of cellulitis: extremity Site of cellulitis of extremity: lower extremity Laterality: left Qualified Code(s): L03.116 - Cellulitis of left lower limb (6) Sepsis Code(s): A41.9 - SEPSIS, UNSPECIFIED ORGANISM Qualifiers: Sepsis type: sepsis due to unspecified organism Qualified Code(s): A41.9 - Sepsis, unspecified organism (7) Insomnia disorder Code(s): G47.00 - INSOMNIA, UNSPECIFIED (8) DM type 2 (diabetes mellitus, type 2) Code(s): E11.9 - TYPE 2 DIABETES MELLITUS WITHOUT COMPLICATIONS Qualifiers: Diabetes mellitus examining chair assembler insulin use: without long-term use plan continue ertapenam improving leg rest rest as per the team
--- NOTE | 2018-11-07 14:33 | PN ---
Physical Exam: SUBJECTIVE: Patient seen and examined oob to chair. Pain 3/10. OBJECTIVE: Vital Signs Period Temp Pulse Resp BP Sys/Bella Pulse Ox Last 24 Hr 97.6 F-98.8 F 72-86 17-19 98-132/52-70 93-97 GENERAL: The patient is awake, alert, and fully oriented, in no acute distress. LUNGS: Breath sounds equal, clear to auscultation bilaterally, no wheezes, no crackles, no accessory muscle use. HEART: Regular rate and rhythm, S1, S2 ABDOMEN: Soft, nontender, nondistended UPPER EXTREMITIES: 2+ pulses, warm, well-perfused, no edema. LOWER EXTREMITIES: LEFT: little change in erythema and swelling from yesterday NEUROLOGICAL: Cranial nerves II through XII grossly intact. Normal speech; moves all extremities freely Laboratory Results - last 24 hr 11/07/18 11/07/18 06:57 07:25 Sodium 136 Potassium 4.4 Chloride 102 Carbon Dioxide 25 Anion Gap 9 BUN 20 H Creatinine 1.4 H Creat Clearance w eGFR 49.96 POC Glucometer 110 Random Glucose 119 H Calcium 8.5 Magnesium 1.9 Active Medications Generic Name Dose Route Start Last Admin Trade Name Freq PRN Reason Stop Dose Admin Acetaminophen 650 mg 11/04/18 09:00 Tylenol - PO Q6H PRN PAIN LEVEL 6-10 Amiodarone HCl 200 mg 11/03/18 10:00 11/07/18 10:31 Cordarone - PO 200 mg DAILY [facility] Administration Apixaban 5 mg 11/02/18 22:00 11/07/18 10:31 Eliquis - PO 5 mg BID [facility] Administration Atorvastatin Calcium 20 mg 11/02/18 22:00 11/06/18 22:01 Lipitor - PO 20 mg HS [facility] Administration Cholecalciferol 1,000 unit 11/03/18 10:00 11/07/18 10:32 Vitamin D3 - PO 1,000 unit DAILY [facility] Administration Clopidogrel Bisulfate 75 mg 11/03/18 10:00 11/07/18 10:31 Plavix - PO 75 mg DAILY [facility] Administration Diltiazem HCl 120 mg 11/03/18 10:00 11/07/18 10:30 Cardizem Cd - PO 120 mg DAILY [facility] Administration Ertapenem 1 gm in 50 mls @ 100 mls/hr 11/03/18 17:45 11/07/18 10:32 Invanz (Pre-Docked) IVPB 100 mls/hr DAILY [facility] Administration Insulin Aspart 1 vial 11/03/18 07:00 11/06/18 18:07 Novolog Vial Sliding Scale - SQ Not Given ACHS [facility] Protocol Isosorbide Mononitrate 120 mg 11/03/18 10:00 11/07/18 10:31 Imdur - PO 120 mg DAILY [facility] Administration Magnesium Oxide 400 mg 11/03/18 10:00 11/07/18 10:31 Mag-Ox - PO 400 mg DAILY [facility] Administration Melatonin 1 mg 11/02/18 22:00 11/05/18 21:08 Melatonin PO Not Given HS [facility] Oxycodone HCl 5 mg 11/04/18 09:00 11/05/18 06:59 Roxicodone - PO 5 mg Q6H PRN Administration PAIN LEVEL 6-10 Zolpidem Tartrate 5 mg 11/06/18 13:15 11/06/18 22:01 Ambien - PO 5 mg HS PRN Administration INSOMNIA Imaging 11/03 MRI: circumferential subq soft tissue edema of the calf; no focal fluid collection, no osteo ASSESSMENT/PLAN: 73 year-old male with a PMH significant for HTN, HLD, CAD s/p CABG x 3 (2001), afib on Eliquis, s/p right carotid endarterectomies x 3 (1997, 2001, 2008) CVA x 2, and peripheral arterial disease s/p iliac vein stent (2017). Admitted for left lower extremity cellulitis. LLE Cellulitis --slowly improving --remains afebrile, no leukocytosis --contiue ertapenem (day #5) Hypertension --BP stable --continue diltiazem Hyperlipidemia --continue atrovastatin, niacin Coronary artery disease s/p CABG Carotid artery disease s/p right endarterectomies --continue Plavix --NOT on ASA Cerebrovascular disease --s/p two "mini" strokes which occurred in course of endarterectomies Peripheral arterial disease --s/p iliac stents Atrial fibrillation --11/05 ECG: sinus rhythm @74bpm --continue amiodarone --continue diltiazem --on Eliquis CKD --Cr 2.4 on admission, trended to 1.2, today slight bump to 1.4; PO intake continues to be a concern, met with music worker; will start gentle IV fluids Pulmonary fibrosis --has been told secondary to amiodarone --uses O2 at home PRN Decreased appetite --nutrition consult, patient education done, encourage small, nutritious meals/snacks --defer appetite stimulant for now Hypomagnesemia --repleted yesterday and resolved FEN Fluids: NS@50mL/hr x 24 hours Electrolytes: replete as indicated Nutrition: diabetic diet; Glucerna BID DVT prophylaxis: on Eliquis Physical therapy Dispo: continues to require inpatient care. Full code. Visit type - Emergency Visit Emergency Visit: Yes ED Registration Date: 11/02/18 Care time: The patient presented to the Emergency Department on the above date and was hospitalized for further evaluation of their emergent condition. - New Patient This patient is new to me today: No - Critical Care Critical Care patient: No
[2018-11-07] MEDS ORDERED: SODIUM CHLORIDE 1,000 ML IV SCH (17:30)
[2018-11-07] MEDS: ZOLPIDEM TARTRATE 5 MG TABLET PO PRN (21:51)
[2018-11-07] MEDS: ATORVASTATIN CA 20 MG TABLET (FP) PO SCH (21:51)
[2018-11-07] MEDS: INSULIN SLIDING SCALE (NOVOLOG) 1 VIAL SQ SCH (22:00)
[2018-11-07] MEDS: MELATONIN 1 MG TABLET PO SCH (22:00)
--- NOTE | 2018-11-08 09:20 | PN ---
Physical Exam: SUBJECTIVE: Patient seen and examined. Pt reports LLE pain improving slowly and poor appetite, OBJECTIVE: Vital Signs Period Temp Pulse Resp BP Sys/Bella Pulse Ox Last 24 Hr 97.5 F-98.3 F 72-86 17-19 82-102/54-70 94-100 GENERAL: The patient is awake, alert, and fully oriented, in no acute distress. HEAD: Normal with no signs of trauma. EYES: PERRL, extraocular movements intact, sclera anicteric, conjunctiva clear. No ptosis. ENT: Ears normal, nares patent, oropharynx clear without exudates, moist mucous membranes. NECK: Trachea midline, full range of motion, supple. LUNGS: Breath sounds equal, clear to auscultation bilaterally, no wheezes, no crackles, no accessory muscle use. HEART: Regular rate and rhythm, S1, S2 without murmur, rub or gallop. ABDOMEN: Soft, nontender, nondistended, normoactive bowel sounds, no guarding, no rebound, no hepatosplenomegaly, no masses. EXTREMITIES: 2+ pulses, warm, well-perfused, no edema. NEUROLOGICAL: Cranial nerves II through XII grossly intact. Normal speech, gait not observed. PSYCH: Normal mood, normal affect. SKIN: Warm, dry, normal turgor, no rashes or lesions noted, LLE with mild redness and swelling, + tenderness Laboratory Results - last 24 hr 11/07/18 11/07/18 07:25 21:50 Sodium 136 Potassium 4.4 Chloride 102 Carbon Dioxide 25 Anion Gap 9 BUN 20 H Creatinine 1.4 H Creat Clearance w eGFR 49.96 POC Glucometer 120 Random Glucose 119 H Calcium 8.5 Magnesium 1.9 Active Medications Generic Name Dose Route Start Last Admin Trade Name Freq PRN Reason Stop Dose Admin Acetaminophen 650 mg 11/04/18 09:00 Tylenol - PO Q6H PRN PAIN LEVEL 6-10 Amiodarone HCl 200 mg 11/03/18 10:00 11/07/18 10:31 Cordarone - PO 200 mg DAILY NATI Administration Apixaban 5 mg 11/02/18 22:00 11/07/18 21:51 Eliquis - PO 5 mg BID NATI Administration Atorvastatin Calcium 20 mg 11/02/18 22:00 11/07/18 21:51 Lipitor - PO 20 mg HS NATI Administration Cholecalciferol 1,000 unit 11/03/18 10:00 11/07/18 10:32 Vitamin D3 - PO 1,000 unit DAILY NATI Administration Clopidogrel Bisulfate 75 mg 11/03/18 10:00 11/07/18 10:31 Plavix - PO 75 mg DAILY NATI Administration Diltiazem HCl 120 mg 11/03/18 10:00 11/07/18 10:30 Cardizem Cd - PO 120 mg DAILY NATI Administration Ertapenem 1 gm in 50 mls @ 100 mls/hr 11/03/18 17:45 11/07/18 10:32 Invanz (Pre-Docked) IVPB 100 mls/hr DAILY NATI Administration Sodium Chloride 1,000 mls @ 50 mls/hr 11/07/18 17:30 Normal Saline - IV 11/08/18 17:25 ASDIR [facility] Insulin Aspart 1 vial 11/03/18 07:00 11/07/18 22:00 Novolog Vial Sliding Scale - SQ Not Given ACHS [facility] Protocol Isosorbide Mononitrate 120 mg 11/03/18 10:00 11/07/18 10:31 Imdur - PO 120 mg DAILY NATI Administration Magnesium Oxide 400 mg 11/03/18 10:00 11/07/18 10:31 Mag-Ox - PO 400 mg DAILY NATI Administration Melatonin 1 mg 11/02/18 22:00 11/07/18 22:00 Melatonin PO Not Given HS NATI Oxycodone HCl 5 mg 11/04/18 09:00 11/07/18 11:05 Roxicodone - PO 5 mg Q6H PRN Administration PAIN LEVEL 6-10 Zolpidem Tartrate 5 mg 11/06/18 13:15 11/07/18 21:51 Ambien - PO 5 mg HS PRN Administration INSOMNIA Imaging 11/03 MRI: circumferential subq soft tissue edema of the calf; no focal fluid collection, no osteo Microbiology 11/02/18 14:36 Blood - Peripheral Venous Blood Culture - Final NO GROWTH AFTER 5 DAYS INCUBATION 11/02/18 14:24 Blood - Peripheral Venous Blood Culture - Final NO GROWTH AFTER 5 DAYS INCUBATION 11/02/18 20:37 Urine - Urine Clean Catch Urine Culture - Final NO GROWTH OBTAINED ASSESSMENT/PLAN: 73 year-old male with a PMH significant for HTN, HLD, CAD s/p CABG x 3 (2001), afib on Eliquis, s/p right carotid endarterectomies x 3 (1997, 2001, 2008) CVA x 2, and peripheral arterial disease s/p iliac vein stent (2018). Admitted for left lower extremity cellulitis. *Sepsis secondary to LLE Cellulitis-slowly improving -remains afebrile, no leukocytosis -contiue Ertapenem (day #6) -BC showed no growth - lactic acid normalized *Hypertension-low BP - on IVF -continue diltiazem with holding parameters -will monitor BP closely *Hyperlipidemia - will continue atrovastatin, niacin *Coronary artery disease s/p CABG Carotid artery disease s/p right endarterectomies --continue Plavix, Statin -NOT on ASA *Cerebrovascular disease -s/p two "mini" strokes which occurred in course of endarterectomies -continue Plavix, Statin *Peripheral arterial disease -s/p iliac stents *Atrial fibrillation- HR controlled - ECG: sinus rhythm -continue amiodarone,diltiazem and Eliquis *CKD -Cr 2.4-1.3 today - on gentle hydration - will f/u on Met - will Rpt U cre *Pulmonary fibrosis,-has been told secondary to amiodarone -uses O2 at home PRN *Decreased appetite -nutrition consult, - encourage small, nutritious meals/snacks -defer appetite stimulant for now *Hypomagnesemia -repleted yesterday and resolved FEN Fluids: NS Electrolytes: replete as indicated Nutrition: diabetic diet; Glucerna BID DVT prophylaxis: on Eliquis Physical therapy Dispo: continues to require inpatient care. Full code. ASSESSMENT/PLAN: Visit type - Emergency Visit Emergency Visit: Yes ED Registration Date: 11/02/18 Care time: The patient presented to the Emergency Department on the above date and was hospitalized for further evaluation of their emergent condition. - New Patient This patient is new to me today: Yes Date on this admission: 11/08/18 - Critical Care Critical Care patient: No
[2018-11-08] MEDS: oxyCODONE HCL 5 MG TABLET PO PRN (09:24)
[2018-11-08] MEDS: ISOSORBIDE MONONITRATE 60 MG TAB.SR.24H (FP) PO SCH (09:24)
[2018-11-08] MEDS: MAGNESIUM OXIDE 400 MG TABLET (FP) PO SCH (09:24)
[2018-11-08] MEDS: CLOPIDOGREL BISULFATE 75 MG TABLET (FP) PO SCH (09:24)
[2018-11-08] MEDS: APIXABAN 5 MG TABLET PO SCH ×2 (09:24→21:18)
[2018-11-08] MEDS: CHOLECALCIFEROL (VITAMIN D3) 1,000 UNIT TABLET (FP) PO SCH (09:25)
[2018-11-08] MEDS: ERTAPENEM SODIUM - 1 GRAM 1 GM/50 ML BAG IVPB SCH (09:25)
[2018-11-08] MEDS ORDERED: SODIUM CHLORIDE 1,000 ML IV SCH (09:25)
[2018-11-08] MEDS: AMIODARONE HCL 200 MG TABLET (FP) PO SCH (10:05)
[2018-11-08 10:16] LABS: ANION GAP 7 MMOL/L (8-16); BLOOD UREA NITROGEN 21 mg/dl (7-18); CHLORIDE 104 mmol/L (98-107); CO2 25 mmol/L (22-28); CREATININE 1.3 mg/dl (0.6-1.3); GLUCOSE,RANDOM 111 mg/dl (74-106); POTASSIUM 4.3 mmol/L (3.5-5.1); SODIUM 136 mmol/L (136-145)
[2018-11-08] MEDS: LACTOBACILLUS ACIDOPHILUS 1 TABLET PO SCH (12:00)
[2018-11-08] MEDS: INSULIN SLIDING SCALE (NOVOLOG) 1 VIAL SQ SCH ×4 (14:49→22:22)
[2018-11-08] MEDS: ATORVASTATIN CA 20 MG TABLET (FP) PO SCH (21:18)
[2018-11-08] MEDS: MELATONIN 1 MG TABLET PO SCH (22:18)
[2018-11-08] MEDS: ZOLPIDEM TARTRATE 5 MG TABLET PO PRN (22:20)
--- NOTE | 2018-11-08 23:11 | HOSP ---
Physical Examination Vital Signs: Vital Signs Temperature 97.9 F 11/08/18 14:10 Pulse Rate 66 11/08/18 14:10 Respiratory Rate 17 11/08/18 14:10 Blood Pressure 106/61 11/08/18 14:10 O2 Sat by Pulse Oximetry (%) 91 L 11/08/18 14:10 Labs: CBC, BMP 11/06/18 10:10 11/08/18 09:50 Hospitalist Encounter Assessment: Patient had fall in room around 11pm, unwitnessed. He reported to have landed on left arm and hit his head against some furniture. No LOC. Physical exam is normal and no tenderness on palpation of extremities or head. He is alert, oriented, talking. Will place on fall precautions, and order head CT.
--- NOTE | 2018-11-09 09:05 | PN ---
Progress Note, Physician History of Present Illness: patient stable swelling decreasing slowly erythema improving slowly still with swelling at the ankle joint pain - Current Medication List Current Medications: Active Medications Acetaminophen (Tylenol -) 650 mg PO Q6H PRN PRN Reason: PAIN LEVEL 6-10 Amiodarone HCl (Cordarone -) 200 mg PO DAILY REPLACED BY [facility] Last Admin: 11/08/18 10:05 Dose: 200 mg Apixaban (Eliquis -) 5 mg PO BID REPLACED BY [facility] Last Admin: 11/08/18 21:18 Dose: 5 mg Atorvastatin Calcium (Lipitor -) 20 mg PO HS REPLACED BY [facility] Last Admin: 11/08/18 21:18 Dose: 20 mg Cholecalciferol (Vitamin D3 -) 1,000 unit PO DAILY REPLACED BY [facility] Last Admin: 11/08/18 09:25 Dose: 1,000 unit Clopidogrel Bisulfate (Plavix -) 75 mg PO DAILY REPLACED BY [facility] Last Admin: 11/08/18 09:24 Dose: 75 mg Diltiazem HCl (Cardizem Cd -) 120 mg PO DAILY REPLACED BY [facility] Last Admin: 11/08/18 10:00 Dose: 120 mg Ertapenem (Invanz (Pre-Docked)) 1 gm in 50 mls @ 100 mls/hr IVPB DAILY REPLACED BY [facility] Last Admin: 11/08/18 09:25 Dose: 100 mls/hr Insulin Aspart (Novolog Vial Sliding Scale -) 1 vial SQ ACHS REPLACED BY [facility]; Protocol Last Admin: 11/08/18 22:22 Dose: Not Given Isosorbide Mononitrate (Imdur -) 120 mg PO DAILY REPLACED BY [facility] Last Admin: 11/08/18 09:24 Dose: 120 mg Lactobacillus Acidophilus (Bacid -) 1 tab PO DAILY REPLACED BY [facility] Last Admin: 11/08/18 12:00 Dose: 1 tab Magnesium Oxide (Mag-Ox -) 400 mg PO DAILY REPLACED BY [facility] Last Admin: 11/08/18 09:24 Dose: 400 mg Melatonin (Melatonin) 1 mg PO HS REPLACED BY [facility] Last Admin: 11/08/18 22:18 Dose: Not Given Oxycodone HCl (Roxicodone -) 5 mg PO Q6H PRN PRN Reason: PAIN LEVEL 6-10 Last Admin: 11/08/18 09:24 Dose: 5 mg Zolpidem Tartrate (Ambien -) 5 mg PO HS PRN PRN Reason: INSOMNIA Last Admin: 11/08/18 22:20 Dose: 5 mg - Objective Vital Signs: Vital Signs Temperature 97.4 F L 11/09/18 08:58 Pulse Rate 74 11/09/18 08:58 Respiratory Rate 17 11/09/18 08:58 Blood Pressure 124/62 11/09/18 08:58 O2 Sat by Pulse Oximetry (%) 91 L 11/09/18 08:58 Constitutional: Yes: No Distress, Calm Cardiovascular: Yes: Regular Rate and Rhythm Respiratory: Yes: Regular Gastrointestinal: Yes: Normal Bowel Sounds, Soft Musculoskeletal: Yes: WNL Extremities: Yes: Erythema (improving swelling improving) Neurological: Yes: Alert, Oriented Psychiatric: Yes: Alert, Oriented Labs: CBC, BMP 11/06/18 10:10 11/08/18 09:50 INR, PTT INR 2.03 (0.82-1.09) H 11/03/18 07:35 Assessment/Plan Problem List - Problems (1) HLD (hyperlipidemia) Code(s): E78.5 - HYPERLIPIDEMIA, UNSPECIFIED Qualifiers: Hyperlipidemia type: pure hypercholesterolemia Qualified Code(s): E78.00 - Pure hypercholesterolemia, unspecified; E78.0 - Pure hypercholesterolemia (2) Atrial fibrillation Code(s): I48.91 - UNSPECIFIED ATRIAL FIBRILLATION (3) CAD in [place] artery Code(s): I25.10 - ATHSCL HEART DISEASE OF [place] CORONARY ARTERY W/O ANG PCTRS (4) Acute on chronic kidney failure Code(s): N17.9 - ACUTE KIDNEY FAILURE, UNSPECIFIED; N18.9 - CHRONIC KIDNEY DISEASE, UNSPECIFIED Qualifiers: Acute renal failure type: unspecified Chronic kidney disease stage: unspecified stage Qualified Code(s): N17.9 - Acute kidney failure, unspecified ; N18.9 - Chronic kidney disease, unspecified (5) Cellulitis Code(s): L03.90 - CELLULITIS, UNSPECIFIED Qualifiers: Site of cellulitis: extremity Site of cellulitis of extremity: lower extremity Laterality: left Qualified Code(s): L03.116 - Cellulitis of left lower limb (6) Sepsis Code(s): A41.9 - SEPSIS, UNSPECIFIED ORGANISM Qualifiers: Sepsis type: sepsis due to unspecified organism Qualified Code(s): A41.9 - Sepsis, unspecified organism (7) Insomnia disorder Code(s): G47.00 - INSOMNIA, UNSPECIFIED (8) DM type 2 (diabetes mellitus, type 2) Code(s): E11.9 - TYPE 2 DIABETES MELLITUS WITHOUT COMPLICATIONS Qualifiers: Diabetes mellitus retirement insulin use: without senior ui ux developer use plan continue ertapenam improving leg rest rest as per the team elevation of the leg
[2018-11-09 09:08] VITALS: BMI 23.8
[2018-11-09 09:23] LABS: INR 1.73 (0.82-1.09); PROTHROMBIN TIME (PATIENT) 19.2 SEC (10.2-13.0)
--- NOTE | 2018-11-09 09:31 | PN ---
Physical Exam: SUBJECTIVE: Patient seen and examined at bedside. Fell overnight. Has no complaints this morning. OBJECTIVE: Vital Signs Period Temp Pulse Resp BP Sys/Bella Pulse Ox Last 24 Hr 97.4 F-98.2 F 66-81 17-19 106-140/61-83 91-100 GENERAL: The patient is awake, alert, and fully oriented, in no acute distress. LUNGS: Breath sounds equal, clear to auscultation bilaterally, no wheezes, no crackles, no accessory muscle use. HEART: Regular rate and rhythm, S1, S2 ABDOMEN: Soft, nontender, nondistended UPPER EXTREMITIES: 2+ pulses, warm, well-perfused, no edema. LOWER EXTREMITIES: LEFT: erythema resolving, still with significant swelling over medial malleolus NEUROLOGICAL: Cranial nerves II through XII grossly intact. Normal speech; moves all extremities freely PSYCH: Depressed affect Laboratory Results - last 24 hr 11/08/18 11/08/18 11/08/18 09:50 22:20 23:15 Sodium 136 Potassium 4.3 Chloride 104 Carbon Dioxide 25 Anion Gap 7 L BUN 21 H Creatinine 1.3 Creat Clearance w eGFR 54.42 POC Glucometer 83 85 Random Glucose 111 H Calcium 8.0 L 11/09/18 06:11 Sodium Potassium Chloride Carbon Dioxide Anion Gap BUN Creatinine Creat Clearance w eGFR POC Glucometer 99 Random Glucose Calcium Active Medications Generic Name Dose Route Start Last Admin Trade Name Freq PRN Reason Stop Dose Admin Acetaminophen 650 mg 11/04/18 09:00 Tylenol - PO Q6H PRN PAIN LEVEL 6-10 Amiodarone HCl 200 mg 11/03/18 10:00 11/08/18 10:05 Cordarone - PO 200 mg DAILY NATI Administration Apixaban 5 mg 11/02/18 22:00 11/08/18 21:18 Eliquis - PO 5 mg BID NATI Administration Atorvastatin Calcium 20 mg 11/02/18 22:00 11/08/18 21:18 Lipitor - PO 20 mg HS NATI Administration Cholecalciferol 1,000 unit 11/03/18 10:00 11/08/18 09:25 Vitamin D3 - PO 1,000 unit DAILY NATI Administration Clopidogrel Bisulfate 75 mg 11/03/18 10:00 11/08/18 09:24 Plavix - PO 75 mg DAILY NATI Administration Diltiazem HCl 120 mg 11/08/18 09:35 11/08/18 10:00 Cardizem Cd - PO 120 mg DAILY NATI Administration Ertapenem 1 gm in 50 mls @ 100 mls/hr 11/03/18 17:45 11/08/18 09:25 Invanz (Pre-Docked) IVPB 100 mls/hr DAILY NATI Administration Insulin Aspart 1 vial 11/03/18 07:00 11/08/18 22:22 Novolog Vial Sliding Scale - SQ Not Given ACHS NATI Protocol Isosorbide Mononitrate 120 mg 11/03/18 10:00 11/08/18 09:24 Imdur - PO 120 mg DAILY NATI Administration Lactobacillus Acidophilus 1 tab 11/08/18 11:45 11/08/18 12:00 Bacid - PO 1 tab DAILY NATI Administration Magnesium Oxide 400 mg 11/03/18 10:00 11/08/18 09:24 Mag-Ox - PO 400 mg DAILY NATI Administration Melatonin 1 mg 11/02/18 22:00 11/08/18 22:18 Melatonin PO Not Given HS NATI Oxycodone HCl 5 mg 11/04/18 09:00 11/08/18 09:24 Roxicodone - PO 5 mg Q6H PRN Administration PAIN LEVEL 6-10 Zolpidem Tartrate 5 mg 11/06/18 13:15 11/08/18 22:20 Ambien - PO 5 mg HS PRN Administration INSOMNIA ASSESSMENT/PLAN Imaging 11/03 MRI: circumferential subq soft tissue edema of the calf; no focal fluid collection, no osteo ASSESSMENT/PLAN: 73 year-old male with a PMH significant for HTN, HLD, CAD s/p CABG x 3 (2001), afib on Eliquis, s/p right carotid endarterectomies x 3 (1997, 2001, 2008) CVA x 2, and peripheral arterial disease s/p iliac vein stent (2018). Admitted for left lower extremity cellulitis. LLE Cellulitis --slowly improving --remains afebrile, no leukocytosis --discussed today with Dr. Escalera, britton ertapenem (day #7) Hypertension --BP stable --continue diltiazem Hyperlipidemia --continue atrovastatin, niacin Coronary artery disease s/p CABG Carotid artery disease s/p right endarterectomies --continue Plavix --NOT on ASA Cerebrovascular disease --s/p two "mini" strokes which occurred in course of endarterectomies Peripheral arterial disease --s/p iliac stents Atrial fibrillation --11/05 ECG: sinus rhythm @74bpm --continue amiodarone --continue diltiazem --on Eliquis CKD --Cr 2.4 on admission, now 1.3 Pulmonary fibrosis --has been told secondary to amiodarone --uses O2 at home PRN Decreased appetite --nutrition consult, patient education done, encourage small, nutritious meals/snacks FEN Fluids: PO intake adequate Electrolytes: replete as indicated Nutrition: diabetic, low sodium diet; Glucerna BID DVT prophylaxis: on Eliquis Physical therapy Dispo: continues to require inpatient care. Full code. Visit type - Emergency Visit Emergency Visit: Yes ED Registration Date: 11/02/18 Care time: The patient presented to the Emergency Department on the above date and was hospitalized for further evaluation of their emergent condition. - New Patient This patient is new to me today: No - Critical Care Critical Care patient: No
[2018-11-09] MEDS: LACTOBACILLUS ACIDOPHILUS 1 TABLET PO SCH (10:15)
[2018-11-09] MEDS: APIXABAN 5 MG TABLET PO SCH ×2 (10:16→21:16)
[2018-11-09] MEDS: ISOSORBIDE MONONITRATE 60 MG TAB.SR.24H (FP) PO SCH (10:16)
[2018-11-09] MEDS: AMIODARONE HCL 200 MG TABLET (FP) PO SCH (10:16)
[2018-11-09] MEDS: CLOPIDOGREL BISULFATE 75 MG TABLET (FP) PO SCH (10:17)
[2018-11-09] MEDS: CHOLECALCIFEROL (VITAMIN D3) 1,000 UNIT TABLET (FP) PO SCH (10:17)
[2018-11-09] MEDS: MAGNESIUM OXIDE 400 MG TABLET (FP) PO SCH (10:17)
[2018-11-09] MEDS ORDERED: PT OWN MED DRAWER 7, Y5N ONE (10:36)
[2018-11-09] MEDS: ERTAPENEM SODIUM - 1 GRAM 1 GM/50 ML BAG IVPB SCH (10:40)
[2018-11-09] MEDS: ATORVASTATIN CA 20 MG TABLET (FP) PO SCH (21:16)
[2018-11-09] MEDS ORDERED: MELATONIN 1 MG TABLET PO SCH (22:00)
[2018-11-10] MEDS ORDERED: traZODone HCL 50 MG TABLET (FP) PO ONE (00:01)
[2018-11-10 05:59] VITALS: TEMP 98.3
[2018-11-10] MEDS: INSULIN SLIDING SCALE (NOVOLOG) 1 VIAL SQ SCH (06:07)
[2018-11-10 08:34] VITALS: BP 135/74; PULSE 68
[2018-11-10] MEDS: CHOLECALCIFEROL (VITAMIN D3) 1,000 UNIT TABLET (FP) PO SCH (09:13)
[2018-11-10] MEDS: APIXABAN 5 MG TABLET PO SCH (09:14)
[2018-11-10] MEDS: MAGNESIUM OXIDE 400 MG TABLET (FP) PO SCH (09:14)
[2018-11-10] MEDS: AMIODARONE HCL 200 MG TABLET (FP) PO SCH (09:14)
[2018-11-10] MEDS: CLOPIDOGREL BISULFATE 75 MG TABLET (FP) PO SCH (09:14)
[2018-11-10] MEDS: LACTOBACILLUS ACIDOPHILUS 1 TABLET PO SCH (09:14)
[2018-11-10] MEDS: ERTAPENEM SODIUM - 1 GRAM 1 GM/50 ML BAG IVPB SCH (09:15)
[2018-11-10] MEDS: ISOSORBIDE MONONITRATE 60 MG TAB.SR.24H (FP) PO SCH (10:00)
--- NOTE | 2018-11-10 12:07 | DS ---
Physical Exam: SUBJECTIVE: Patient seen and examined oob to chair. OBJECTIVE: Vital Signs Period Temp Pulse Resp BP Sys/Bella Pulse Ox Last 24 Hr 97.8 F-98.5 F 68-74 18-18 100-135/68-74 97-100 PHYSICAL EXAM GENERAL: The patient is awake, alert, and fully oriented, in no acute distress. LUNGS: Breath sounds equal, clear to auscultation bilaterally, no wheezes, no crackles, no accessory muscle use. HEART: Regular rate and rhythm, S1, S2 ABDOMEN: Soft, nontender, nondistended UPPER EXTREMITIES: 2+ pulses, warm, well-perfused, no edema. LOWER EXTREMITIES: LEFT: erythema resolving, still with significant swelling over medial malleolus NEUROLOGICAL: Cranial nerves II through XII grossly intact. Normal speech; moves all extremities freely PSYCH: Depressed affect LAB CBCD WBC 9.7 K/mm3 (4.0-10.8) 11/06/18 10:10 RBC 4.03 M/mm3 (4.00-5.60) 11/06/18 10:10 Hgb 13.1 GM/dl (11.7-16.9) 11/06/18 10:10 Hct 39.2 % (35.4-49) 11/06/18 10:10 MCV 97.2 fl (80-96) H 11/06/18 10:10 MCHC 33.3 g/dl (32.0-35.9) 11/06/18 10:10 RDW 13.3 % (11.9-15.9) 11/06/18 10:10 Plt Count 242 K/MM3 (134-434) D 11/06/18 10:10 MPV 8.0 fl (7.5-11.1) 11/06/18 10:10 CMP Sodium 136 mmol/L (136-145) 11/08/18 09:50 Potassium 4.3 mmol/L (3.5-5.1) 11/08/18 09:50 Chloride 104 mmol/L (98-107) 11/08/18 09:50 Carbon Dioxide 25 mmol/L (22-28) 11/08/18 09:50 Anion Gap 7 MMOL/L (8-16) L 11/08/18 09:50 BUN 21 mg/dl (7-18) H 11/08/18 09:50 Creatinine 1.3 mg/dl (0.6-1.3) 11/08/18 09:50 Creat Clearance w eGFR 54.42 (>60) 11/08/18 09:50 Calcium 8.0 mg/dl (8.4-10.2) L 11/08/18 09:50 Total Bilirubin 0.9 mg/dl (0.2-1.0) 11/06/18 10:10 AST 41 U/L (10-42) D 11/06/18 10:10 ALT 63 U/L (10-40) H D 11/06/18 10:10 Alkaline Phosphatase 75 U/L (32-92) D 11/06/18 10:10 Total Protein 6.3 g/dl (6.4-8.3) L 11/06/18 10:10 Albumin 2.8 g/dl (3.5-5.0) L 11/06/18 10:10 HOSPITAL COURSE: Date of Admission:11/02/18 Date of Discharge: 11/10/18 Pre hospital course 73 year old M with h/o HTN, HLD, GERD, afib (on eliquis), CKD, CAD s/p CABG and pulm fibrosis 2/2 amiodarone c/o left lower extremity redness and swelling x 4days. Mr. Urrutia reports left hip tenderness 2days prior to his symptoms in LLE being present. Associated symptoms include lethargy, chills, gait impairment , decreased appetite and lethargy. His family reports prior cellulitis in left lower extremity ~ 3yrs ago, which was treated with oral Abx. Patient unable to recall any precipitating factors. At the urging of his family, pt decided to present to local ED for evaluation. In ED he was noted to be hypotensive (SBP 80s), WBC 15, Lactate 3.0. He was given 2L IV fluids which resulted in improvement in hypotension (SBP 100-130s). Additionally, He was treated with vancomycin IV. Decision made to admit pt for management of LLE cellulitis. Hospital course by problem list 73 year-old male with a PMH significant for HTN, HLD, CAD s/p CABG x 3 (2001), afib on Eliquis, s/p right carotid endarterectomies x 3 (1997, 2002, 2008) CVA x 2, and peripheral arterial disease s/p iliac vein stent (2018). Admitted for left lower extremity cellulitis. LLE Cellulitis --11/03 MRI: circumferential subq soft tissue edema of the calf; no focal fluid collection, no osteo --treated with ertapenem x 8 days --remained afebrile, no leukocytosis throughout hospital stay --will follow up with Dr. Escalera at [facility] Hypertension --BP stable --continued diltiazem Hyperlipidemia --continued atrovastatin, niacin Coronary artery disease s/p CABG Carotid artery disease s/p right endarterectomies --continued Plavix --NOT on ASA Cerebrovascular disease --s/p two "mini" strokes which occurred in course of endarterectomies Peripheral arterial disease --s/p iliac stents Atrial fibrillation --11/05 ECG: sinus rhythm @74bpm --continued amiodarone --continued diltiazem --on Eliquis CKD --Cr 2.4 on admission, likely due to decreased PO intake/low volume state --corrected without need for IV fluids --Cr 1.3 at time of discharge Pulmonary fibrosis --has been told secondary to amiodarone --uses O2 at home PRN Decreased appetite --nutrition consult, patient education done, encouraged small, nutritious meals/snacks, Glucerna supplements Minutes to complete discharge: 35 Discharge Summary Reason For Visit: CELLULITIS Current Active Problems Acute on chronic kidney failure (Acute) Atrial fibrillation (Acute) CAD in [place] artery (Acute) Cellulitis (Acute) DM type 2 (diabetes mellitus, type 2) (Acute) HLD (hyperlipidemia) (Acute) Insomnia disorder (Acute) Sepsis (Acute) Condition: Stable - Instructions - Home Medications Comprehensive Discharge Medication List: Ambulatory Orders Celecoxib [CeleBREX -] 200 mg PO DAILY 03/11/13 Clopidogrel Bisulfate [Plavix -] 75 mg PO DAILY 03/11/13 Isosorbide Mononitrate [Imdur] 120 mg PO DAILY 03/11/13 Metoprolol Succinate [Toprol XL -] 50 mg PO DAILY 03/11/13 Zolpidem Tartrate [Ambien] 10 mg PO HS 03/11/13 metFORMIN HCL [Glucophage -] 500 mg PO BID 03/11/13 Apixaban [Eliquis] 5 mg PO BID 03/19/18 Diltiazem HCl [Cartia Xt] 120 mg PO DAILY 03/19/18 Nortriptyline HCl [Pamelor -] 25 mg PO HS 03/19/18 Amiodarone HCl [Cordarone -] 200 mg PO DAILY 04/28/18 Atorvastatin Ca [Lipitor] 20 mg PO DAILY 04/28/18 Cholecalciferol (Vitamin D3) [Vitamin D3] 1,000 unit PO DAILY 04/28/18 Magnesium Oxide [Magnesium] 400 mg PO DAILY 04/28/18 Melatonin 1 mg PO DAILY 04/28/18 Niacin 100 mg PO DAILY 04/28/18 Turmeric/Turmeric Ext/Pepr Ext [Turmeric Complex 500 mg Cap] 1 each PO DAILY 04/10 Zinc 220 mg PO DAILY 04/28/18 This patient is new to me today: No Emergency Visit: Yes ED Registration Date: 11/02/18 Care time: The patient presented to the Emergency Department on the above date and was hospitalized for further evaluation of their emergent condition. Critical Care patient: No - Discharge Referral Referred to [facility] No
--- NOTE | 2018-11-11 16:11 | PN ---
Progress Note, Physician History of Present Illness: stable swelling decreasing some pain - Objective Vital Signs: Vital Signs Temperature 98.3 F 11/10/18 08:32 Pulse Rate 68 11/10/18 08:32 Respiratory Rate 18 11/10/18 08:32 Blood Pressure 135/74 11/10/18 08:32 O2 Sat by Pulse Oximetry (%) 97 11/10/18 08:32 Constitutional: Yes: No Distress, Calm Cardiovascular: Yes: Regular Rate and Rhythm Respiratory: Yes: Regular, CTA Bilaterally Gastrointestinal: Yes: Normal Bowel Sounds, Soft Musculoskeletal: Yes: WNL Extremities: Yes: Other (cellulitis improving) Neurological: Yes: Alert, Oriented Psychiatric: Yes: Alert, Oriented Labs: CBC, BMP 11/06/18 10:10 11/08/18 09:50 INR, PTT INR 1.73 (0.82-1.09) H 11/09/18 07:35 Assessment/Plan Problem List - Problems (1) HLD (hyperlipidemia) Code(s): E78.5 - HYPERLIPIDEMIA, UNSPECIFIED Qualifiers: Hyperlipidemia type: pure hypercholesterolemia Qualified Code(s): E78.00 - Pure hypercholesterolemia, unspecified; E78.0 - Pure hypercholesterolemia (2) Atrial fibrillation Code(s): I48.91 - UNSPECIFIED ATRIAL FIBRILLATION (3) CAD in [place] artery Code(s): I25.10 - ATHSCL HEART DISEASE OF [place] CORONARY ARTERY W/O ANG PCTRS (4) Acute on chronic kidney failure Code(s): N17.9 - ACUTE KIDNEY FAILURE, UNSPECIFIED; N18.9 - CHRONIC KIDNEY DISEASE, UNSPECIFIED Qualifiers: Acute renal failure type: unspecified Chronic kidney disease stage: unspecified stage Qualified Code(s): N17.9 - Acute kidney failure, unspecified ; N18.9 - Chronic kidney disease, unspecified (5) Cellulitis Code(s): L03.90 - CELLULITIS, UNSPECIFIED Qualifiers: Site of cellulitis: extremity Site of cellulitis of extremity: lower extremity Laterality: left Qualified Code(s): L03.116 - Cellulitis of left lower limb (6) Sepsis Code(s): A41.9 - SEPSIS, UNSPECIFIED ORGANISM Qualifiers: Sepsis type: sepsis due to unspecified organism Qualified Code(s): A41.9 - Sepsis, unspecified organism (7) Insomnia disorder Code(s): G47.00 - INSOMNIA, UNSPECIFIED (8) DM type 2 (diabetes mellitus, type 2) Code(s): E11.9 - TYPE 2 DIABETES MELLITUS WITHOUT COMPLICATIONS Qualifiers: Diabetes mellitus technician terminal and repeater insulin use: without technician terminal and repeater use plan continue ertapenam improving leg rest rest as per the team elevation of the leg
== END 2018-11-10 13:47 | disposition home or self-care (01) | DRG 872 ==
LOC: FER 13:06 → FM/S 16:30 → UNDOADMIN 20:44 → FM/S 20:44
PROVIDERS: ADMIT Hospitalist; ATTEND Nurse Practitioner Acute Care
DX: A41.9 Sepsis, unspecified organism (principal); N17.9 Acute kidney failure, unspecified; L03.116 Cellulitis of left lower limb; E11.22 Type 2 diabetes mellitus with diabetic chronic kidney disease; I12.9 Hypertensive chronic kidney disease with stage 1 through stage 4 chronic kidney disease, or unspecified chronic kidney disease; N18.9 Chronic kidney disease, unspecified; Z79.84 Long term (current) use of oral hypoglycemic drugs; I25.2 Old myocardial infarction; I25.10 Atherosclerotic heart disease of native coronary artery without angina pectoris; I48.91 Unspecified atrial fibrillation; I73.9 Peripheral vascular disease, unspecified; Z95.1 Presence of aortocoronary bypass graft; E78.5 Hyperlipidemia, unspecified; G47.00 Insomnia, unspecified; S00.00XA Unspecified superficial injury of scalp, initial encounter; W01.190A Fall on same level from slipping, tripping and stumbling with subsequent striking against furniture, initial encounter; Y93.89 Activity, other specified; Y92.230 Patient room in hospital as the place of occurrence of the external cause; Y99.8 Other external cause status; Z79.01 Long term (current) use of anticoagulants; Z87.891 Personal history of nicotine dependence; F10.11 Alcohol abuse, in remission; J84.10 Pulmonary fibrosis, unspecified; E83.42 Hypomagnesemia; R63.0 Anorexia; Z68.23 Body mass index [BMI] 23.0-23.9, adult; I95.9 Hypotension, unspecified
CPT/HCPCS: 36415; 70450-TC; 71045-TC-FY; 73590-TC-LT-FY; 73610-TC-LT-FY; 73630-TC-LT; 73718-LT; 80048; 80053; 81003; 81015; 82570; 82962; 83036; 83605; 83735; 83880; 84100; 84156; 84300; 85025; 85610; 85651; 85730; 86140; 86850; 86900; 86901; 87040; 87086; 93005; 97116-GP; 99285-25; J7030

== ENCOUNTER 2019-12-22 12:55 | Inpatient (IN) | payer OTHER ==
[2019-12-22] MEDS ORDERED: ACETAMINOPHEN 1000 MG/100 ML VIAL (NON FORMULARY) IVPB ONE (14:54)
[2019-12-22] MEDS ORDERED: ACETAMINOPHEN INJECTION 100 ML IVPB ONE (15:07)
--- NOTE | 2019-12-22 15:18 | PDOC ---
History of Present Illness - General Chief Complaint: Injury Stated Complaint: FALL Time Seen by Provider: 12/22/19 13:55 - History of Present Illness Initial Comments: 12/22/19 14:53 HPI: 74 y/o M with hx of DM, HTN, CAD s/p CABG and multiple stents, Afib s/p cardioversion x2 on eliquis, CEA x2, iliac stenting BIBEMS for witnessed syncope and head trauma. Patient reports he woke feeling unwell without any specific complaints; proceeded to his PCP. After leaving went to dealership and fell face forward and hit head. Denies any prodromal symptoms including VARGAS, LH, dizziness, chest pain, SOB, abd pain, n/n, diaphoresis, leg pain, palpitations, weakness, back pain. Currently feels pain in BL wrists because he thinks he braced his fall. Patient ambulatory at the scene with assist. PMHx: as noted above ROS: as noted SHx: Denies tobacco use; occasional alcohol use; no rec drugs Allergies: NKDA ROS: GENERAL/CONSTITUTIONAL: No fever or chills. No weakness. HEAD, EYES, EARS, NOSE AND THROAT: No change in vision. No ear pain or discharge. No sore throat. CARDIOVASCULAR: No chest pain or shortness of breath RESPIRATORY: No cough, wheezing, or hemoptysis. GASTROINTESTINAL: No nausea, vomiting, diarrhea or constipation. GENITOURINARY: No dysuria, frequency, or change in urination. MUSCULOSKELETAL: No joint or muscle swelling or pain. No neck or back pain. SKIN: No rash NEUROLOGIC: +LOC; No headache, vertigo, or change in strength/sensation. ENDOCRINE: No increased thirst. No abnormal weight change HEMATOLOGIC/LYMPHATIC: No anemia, easy bleeding, or history of blood clots. ALLERGIC/IMMUNOLOGIC: No hives or skin allergy. PE: GENERAL: Awake, alert, and fully oriented, no acute distress HEAD: mild abrasion above brow with 3x3cm heamtoma with minimal ecchymosis EYES: EOMI, sclera anicteric, conjunctiva clear ENT: Auricles normal inspection, hearing grossly normal, nares patent, mild upper and lower lip abrasion without active bleeding. Moist mucosa NECK: Normal ROM, no lymphadenopathy, no C/T/L midline ttp and no paraspinal ttp LUNGS: No increased work of breathing, symmetrical chest rise, rales in RLL, no wheezing HEART: bradycardia, regular rhythm, normal S1 and S2, no murmur, peripheral pulses 2+ and equal bilaterally. trace BL LE edema ABDOMEN: Soft, nondistended, nontender, normoactive bowel sounds. No guarding, no rebound. No masses. No CVAT MUSCULOSKELETAL: FROM, mild ttp on BL 1st MCP, 5/5 str, sensation intact NEUROLOGICAL: Cranial nerves II through XII grossly intact. Normal speech, normal gait, no focal sensorimotor deficits SKIN: Warm, Dry, normal turgor, no rashes or lesions noted Past History - Past Medical History Allergies/Adverse Reactions: Allergies Allergy/AdvReac Type Severity Reaction Status Date / Time Penicillins Allergy Severe Verified 12/22/19 13:46 Home Medications: Ambulatory Orders Celecoxib [CeleBREX -] 200 mg PO DAILY 03/11/13 Clopidogrel Bisulfate [Plavix -] 75 mg PO DAILY 03/11/13 Isosorbide Mononitrate [Imdur] 120 mg PO DAILY 03/11/13 Metoprolol Succinate [Toprol XL -] 50 mg PO BID 03/11/13 metFORMIN HCL [Glucophage -] 500 mg PO BID 03/11/13 Apixaban [Eliquis] 5 mg PO BID 03/19/18 Nortriptyline HCl [Pamelor -] 25 mg PO HS 03/19/18 Amiodarone HCl [Cordarone -] 100 mg PO DAILY 04/28/18 Atorvastatin Ca [Lipitor] 20 mg PO DAILY 04/28/18 Cholecalciferol (Vitamin D3) [Vitamin D3] 1,000 unit PO DAILY 04/28/18 Melatonin 3 mg PO HS 04/28/18 Niacin 500 mg PO DAILY 04/28/18 Ranolazine [Ranexa] 500 mg PO BID 12/22/19 Zolpidem Tartrate [Ambien] 10 mg PO HS 12/22/19 Anemia: No Asthma: No Cancer: No Cardiac Disorders: Yes CVA: No COPD: No CHF: No Dementia: No Diabetes: Yes GI Disorders: No Disorders: No HTN: Yes Hypercholesterolemia: Yes Liver Disease: Yes Seizures: No Thyroid Disease: No - Surgical History Abdominal Surgery: Yes Appendectomy: No Cardiac Surgery: Yes (BYPASS 2001 stents) Cholecystectomy: Yes Lung Surgery: No Neurologic Surgery: No Orthopedic Surgery: Yes (RT CARPAL TUNNEL, RT TORN MENISCUS) - Psycho Social/Smoking Cessation Hx Smoking History: Former smoker Have you smoked in the past 12 months: No If you are a former smoker, when did you quit?: 1990 Information on smoking cessation initiated: No Hx Alcohol Use: No Drug/Substance Use Hx: No Substance Use Type: None Hx Substance Use Treatment: No *Physical Exam - Vital Signs Last Vital Signs Temp Pulse Resp BP Pulse Ox 97.7 F 52 L 18 120/68 95 12/22/19 12:57 12/22/19 12:57 12/22/19 12:57 12/22/19 12:57 12/22/19 13:30 ED Treatment Course - LABORATORY CBC & Chemistry Diagram: 12/22/19 14:52 12/22/19 17:30 - RADIOLOGY Radiology Studies Ordered: Category Date Time Status CERVICAL SPINE CT W/O CONTR [CT] Stat CT Scan 12/22/19 14:[address] WITHOUT CONTRAST [CT] Stat CT Scan 12/22/19 14:24 Ordered CHEST - PA [RAD] Stat Radiology 12/22/19 14:23 Taken WRIST W/HAND-LEFT* [RAD] Stat Radiology 12/22/19 14:39 Ordered WRIST W/HAND-RIGHT* [RAD] Stat Radiology 12/22/19 14:39 Ordered Medical Decision Making - Medical Decision Making 12/22/19 15:18 74 y/o M with hx of DM, HTN, CAD s/p CABG and multiple stents, Afib s/p cardioversion x2 on eliquis, CEA x2, iliac stenting BIBEMS for witnessed syncope and head trauma, with brow hematoma and mild BL wrist pain. BP 10/68 HR 52, AF. PE with mild BL 1st MCP ttp, FROM. DDx includes ACS, lyte imbalance, arrhythmia, CVA. -cbc, cmp, mg, coags, cardiac profile, ekg, CXR, CT head, CT c spine -ofirmev 12/22/19 18:32 Laboratory Tests 12/22/19 17:30 Potassium 6.1 H* Creatinine 2.4 H Magnesium 1.5 L Troponin I 0.49 H 12/22/19 18:42 ekg: bradycardia, 1st degree av block, no calvin/d will give insulin, d50 amp, lokelma, albuterol, mg will admit 12/22/19 19:[address] Rockwell (partner of Dr Alvarez) Discharge - Discharge Information Problems reviewed: Yes Clinical Impression/Diagnosis: Hyperkalemia, Elevated troponin, MARIANNA (acute kidney injury) Syncope Qualifiers: Syncope type: unspecified Qualified Code(s): R55 - Syncope and collapse - Admission Yes - Follow up/Referral Referrals: Jean Paul Núñez MD [Primary Care Provider] - - Patient Discharge Instructions - Post Discharge Activity
[2019-12-22 16:04] LABS: INR 1.89 (0.83-1.09); PROTHROMBIN TIME (PATIENT) 22.4 SEC (9.7-13.0)
[2019-12-22 16:18] LABS: BASO % 0.6 % (0-2.0); EOS % 1.8 % (0-4.5); HEMATOCRIT 35.2 % (35.4-49); HEMOGLOBIN 11.8 GM/dL (11.7-16.9); LYMPH % 11.3 % (8-40); MCH 32.6 pg (25.7-33.7); MCHC 33.7 g/dl (32.0-35.9); MEAN CELL VOLUME 96.8 fl (80-96); MEAN PLT VOLUME 8.7 fl (7.5-11.1); MONO % 6.1 % (3.8-10.2); NEUT % 80.2 % (42.8-82.8); PLATELET COUNT 293 K/MM3 (134-434); RBC 3.63 M/mm3 (4.00-5.60); RDW 15.7 % (11.9-15.9); WHITE BLOOD COUNT 7.2 K/mm3 (4.0-10.0)
--- NOTE | 2019-12-22 16:38 | PDOC ---
Documentation entered by Aries Francois SCRIBE, acting as scribe for Doyle Wilson MD. Doyle Wilson MD: This documentation has been prepared by the Priscila manzo Nirvannie, SCRIBE, under my direction and personally reviewed by me in its entirety. I confirm that the documentation accurately reflects all work, treatment, procedures, and medical decision making performed by me. Attending Attestation - Resident Resident Name: Asif Loera - ED Attending Attestation I have performed the following: I have examined & evaluated the patient, The case was reviewed & discussed with the resident, I agree w/resident's findings & plan, Exceptions are as noted - HPI HPI: 12/22/19 16:13 The patient is a 74 year old male with a significant past medical history of DM , HTN, CAD (s/p CABG and multiple cardiac stenting), Afib (s/p cardioversion x2 on Eliquis), CEA x2, iliac stenting who reports to the ED via EMS s/p witnessed syncope with head trauma. As per patient, he woke up this morning feeling unwell and went to see his PCP and upon leaving the office he syncopized hitting his head. - Physicial Exam PE: 12/22/19 16:36 Patient is awake and alert, frail-appearing, GCS-15 Normocephalic, + soft tissue sweeling and echymosis to globella perr eomi no cervical spine deformity or tenderness to palpationla, cta rrr abd-sft, nt, nd pelvis:stable + r. hand echymosis/snuff box ttp 12/22/19 17:03 - Medical Decision Making 12/22/19 16:38 Your hydroureter will whenever we can never had patient is a 74-year-old male with multiple comorbidities, history of CAD who presents after a witnessed syncopal episode without a prodromal period. I suspect cardiogenic syncope. EKG shows sinus bradycardia with no evidence of acute ischemia or dysrhythmia. Will obtain CT of head/cervical spine. Will obtain CBC/CMP/chest x-ray. Will evaluate for hand injuries. Likely admission.
[2019-12-22 18:23] LABS: BILIRUBIN,TOTAL 0.7 mg/dL (0.2-1); BLOOD UREA NITROGEN 38.4 mg/dL (7-18); CREATININE 2.4 mg/dL (0.55-1.3); MAGNESIUM 1.5 mg/dL (1.8-2.4); TOT PROT 7.6 g/dl (6.4-8.2)
[2019-12-22 18:29] LABS: POTASSIUM 6.1 mmol/L (3.5-5.1)
[2019-12-22] MEDS ORDERED: ASPIRIN 81 MG CHEWABLE TABLETS PO ONE (18:34)
[2019-12-22] MEDS ORDERED: INSULIN REGULAR HUMAN 100 UNITS/ML *VIAL IVPUSH ONE (18:34)
[2019-12-22] MEDS ORDERED: CALCIUM GLUCONATE 10% - 1,000 MG/10 ML VIAL IVPB ONE (18:34)
[2019-12-22] MEDS ORDERED: DEXTROSE 50%-WATER - 25 GM/50 ML VIAL IVPUSH ONE (18:34)
[2019-12-22] MEDS ORDERED: SODIUM CHLORIDE 500 ML IV STA (18:37)
[2019-12-22] MEDS ORDERED: ALBUTEROL SO4 0.083% IH SOL 2.5 MG/3 ML VIAL.NEB. NEB ONE ×2 (18:44→20:34)
[2019-12-22] MEDS ORDERED: DEXTROSE 50%-WATER - 25 GM/50 ML VIAL ONE (18:48)
[2019-12-22] MEDS ORDERED: CALCIUM GLUCONATE 10% - 1,000 MG/10 ML VIAL ONE (18:48)
[2019-12-22] MEDS ORDERED: ASPIRIN 81 MG CHEWABLE TABLETS ONE ×2 (18:48→18:49)
[2019-12-22] MEDS ORDERED: MAGNESIUM SULF 50% (8.12 MEQ/2 ML-1 GM VIAL) IVPB ONE (19:09)
--- NOTE | 2019-12-22 19:16 | PN ---
Teaching Attending Note Name of Resident: Robert Bethea ATTENDING PHYSICIAN STATEMENT I saw and evaluated the patient. I reviewed the resident's note and discussed the case with the resident. I agree with the resident's findings and plan as documented. SUBJECTIVE: Patient is a 74 year old man with a PMH of NIDDM, HTN, CAD s/p CABG (5 stents [place] [facility] [place] Kidney stones, Afib s/p cardioversion x2 on eliquis, CEA x2, Penicillin allergy and Iliac stenting presenting after witnessed syncope and head trauma. Patient reports he woke feeling unwell without any specific complaints; proceeded to his PCP. After leaving went to dealership and fell face forward and hit head. Denies any prodromal symptoms including headache , lightheadedness, dizziness, chest pain, SOB, abdominal pain, nausea, vomiting , diaphoresis, leg pain, palpitations, weakness, hematuria, dysuria or back pain. Currently feels pain in both wrists because he thinks he braced his fall. Patient ambulatory at the scene with assist. Reports that he had three episodes of syncope 5 years ago. Denies alcohol, tobacco or illicit drug use. No sick contacts or recent travels. OBJECTIVE: Alert and not orthostatic Vital Signs Period Temp Pulse Resp BP Sys/Bella Pulse Ox Last 24 Hr 97.7 F 52-58 18-18 120-137/68-75 91-95 HEENT: No Jaundice, eye redness or discharge, PERRLA, EOMI. Normocephalic, forehead scalp hematoma. External ears are normal and hearing is grossly intact. No nasal discharge. Neck: Supple, nontender. No palpable adenopathy or thyromegaly. No JVD Chest: Good effort. Clear to auscultation and percussion. Heart: Irregular. No S3, rub or murmur Abdomen: Not distended, soft, nontender and no HSM. No rebound or guarding. Normal bowel sounds. Ext: Peripheral pulses intact. No leg edema. Skin: Warm and dry. No petechiae, rash or ecchymosis. Neuro: Alert. Oriented x3. CN 2-12 grossly intact. Sensation grossly intact in all four extremities and DTR are symmetric. Psych: Appropriate mood and affect. Good insight. Current Medications Generic Name Dose Route Start Last Admin Trade Name Freq PRN Reason Stop Dose Admin Sodium Zirconium Cyclosilicate 10 gm 12/23/19 18:36 Lokelma PO 12/23/19 18:37 ONCE ONE Home Medications Medication Instructions Recorded Celecoxib [CeleBREX -] 200 mg PO DAILY 03/11/13 Clopidogrel Bisulfate [Plavix -] 75 mg PO DAILY 03/11/13 Isosorbide Mononitrate [Imdur] 120 mg PO DAILY 03/11/13 Metoprolol Succinate [Toprol XL -] 50 mg PO BID 03/11/13 metFORMIN HCL [Glucophage -] 500 mg PO BID 03/11/13 Apixaban [Eliquis] 5 mg PO BID 03/19/18 Nortriptyline HCl [Pamelor -] 25 mg PO HS 03/19/18 Amiodarone HCl [Cordarone -] 100 mg PO DAILY 04/28/18 Atorvastatin Ca [Lipitor] 20 mg PO DAILY 04/28/18 Cholecalciferol (Vitamin D3) 1,000 unit PO DAILY 04/28/18 [Vitamin D3] Melatonin 3 mg PO HS 04/28/18 Niacin 500 mg PO DAILY 04/28/18 Ranolazine [Ranexa] 500 mg PO BID 12/22/19 Zolpidem Tartrate [Ambien] 10 mg PO HS 12/22/19 Abnormal Lab Results 12/22/19 12/22/19 12/22/19 14:12 14:52 17:30 RBC 3.63 L Hct 35.2 L MCV 96.8 H PT with INR 22.40 H INR 1.89 H PTT (Actin FS) 40.0 H Potassium 6.1 H* BUN 38.4 H Creatinine 2.4 H Magnesium 1.5 L Troponin I 0.49 H Albumin 3.0 L Urine Protein Urine Ketones 12/22/19 19:00 RBC Hct MCV PT with INR INR PTT (Actin FS) Potassium BUN Creatinine Magnesium Troponin I Albumin Urine Protein 1+ H Urine Ketones Trace H ASSESSMENT AND PLAN: 1. Syncope/Head trauma - Cause of syncope unclear. Hyperkalemia may be a contributing factor. No fracture noted on hand/wrist xrays. C-spine xrays didnot show any acute abnormality. Head CT scan showed paramedian forehead scalp hematoma. EKG shows sinus bradycardia at 48/minute, 1o AV block, LAD and septal infarct of undetermined age. Will trend elevated troponin to rule out ACS. Getting IV MgSO4 for hypomagnesemia. CXR shows residual bibasilar atelectasis/infiltrates. Will get a chest CT, brain MRI, ECHO, carotid doppler, urine toxicology, EEG and monitor on telemetry. Repeat head CT in 24 hours. Do neurochecks. Implement fall and seizure precautions. Consult PT, Cardiology and Neurology. Will continue comprehensive care for all of patients comorbid conditions including Eliquis for Afib. 2. Hypoalbuminemia - Possibly due to combined effects of proteinuria, malnutrition and inflammation associated with comorbid chronic conditions. Will ensure adequate dietary protein intake and also consult supervisor silvering department. 3. DM For now, we will hold the home diabetes drugs and implement sliding scale insulin regimen. Provide comprehensive diabetes care with patient teaching and counseling about the importance of adherence to prescribed diabetes regimen, euglycemia, eye care and foot care. 4. CKD - With possible MARIANNA and type 4 RTA to explain hyperkalemia. Got acute treatment of hyperkalemia in the ER. Will repeat K and continue treatment if still high. Will consult nephrology and avoid nephrotoxic agents such as NSAIDS , aminoglycosides, contrast dyes and certain Alternative medicine products. 5. Anemia - Likely partly due to CKD. Will do basic anemia work up including serial stool guaiacs, reticulocyte count and iron studies. 6. Hypertension - Restart suitable outpatient antihypertensive drugs when clinically appropriate. Revise regimen to ensure [id number] excellent BP control and vp & general counsel patient on the injurious effects of uncontrolled hypertension. Nonpharmacologic measures to control hypertension like weight loss , salt restriction and exercise discussed. Importance of adherence to treatment regimen and attainment of normotension emphasized. 7. DVT prophylaxis - On Eliquis for Afib. 8. Advance directives - Full code
[2019-12-22 20:04] LABS: EPI CELLS 1.4 /HPF (0-5/HPF); HYALINE CASTS 9 /lpf (0-8); URINE APPEARANCE CLEAR; URINE BILIRUBIN NEGATIVE (NEGATIVE); URINE COLOR DK YELLOW; URINE GLUCOSE (UA) NEGATIVE (NEGATIVE); URINE KETONE TRACE (NEGATIVE); URINE LEUK ESTERASE TRACE (NEGATIVE); URINE NITRITE NEGATIVE (NEGATIVE); URINE PROTEIN 1+ (NEGATIVE); URINE RBC 2 /hpf (0-4); URINE UROBILINOGEN 0.2 mg/dL (0.2-1.0); URINE WBC 5 /hpf (0-5)
[2019-12-22] MEDS ORDERED: MAGNESIUM 1GM/D5W - 1 GM/100 ML IVPB IVPB ONE (20:34)
[2019-12-22] MEDS ORDERED: INSULIN REGULAR HUMAN 100 UNITS/ML *VIAL ONE (20:35)
[2019-12-23 01:39] LABS: CALCIUM 8.9 mg/dL (8.5-10.1); CREATININE 2.3 mg/dL (0.55-1.3)
[2019-12-23] MEDS ORDERED: oxyCODONE HCL 5 MG TABLET PO ONE (02:36)
[2019-12-23] MEDS ORDERED: oxyCODONE HCL 5 MG TABLET ONE (02:44)
--- NOTE | 2019-12-23 04:48 | HP ---
CHIEF COMPLAINT: Syncope with head trauma but no LOC PCP: Dr. Núñez HISTORY OF PRESENT ILLNESS: This is a 74 year old male with PMH of DM, HTN, CAD (s/p stent placement 1 month ago), AFib (Eliquis and Amiodarone), and R iliac stent. He presented to the ER after a syncopal episode earlier today. He woke up this morning feeling "off", but was unable to describe how or why. He visited his elementary math tutor (Dr. Kim Garner). A few hours later, he was visiting a [employer] dealership with his , when he fell down, hitting his head (left forehead) on a car, using his outstretched hands to brace the fall. He had no pre-syncopal symptoms, and has no recollection of the fall itself, although there was no LOC and he was acutely aware of his surroundings after the fall, and only remembers being on the floor. Staff helped him to a chair, and EMS was called. Blood glucose was measured at 119 on the scene. He had syncopal episodes 3-4 years ago at home, when he fell once in the shower and twice in the living room in his house. At the time, he had pre-syncopal symptoms of dizziness and light headedness. An EEG was done at the time([facility] ), and upon cardiac workup he was found to have an abnormal rhythm, as per the patient (although AFib was diagnosed 2-3 years later). 1 month ago, he underwent stent placement at [facility]. 2 months ago, he had a dry cough and was started on a 5 day course of abx, although it was suspected that the Amiodarone may be causing lung injury. 2 years ago (2018), he was admitted at [place] for cellulitis. 2 years ago, he was diagnosed with AFib and has been on Eliquis and Amiodarone since then. 2 years ago, he underwent a right iliac stent placement after he developed cramping in his right leg for several months. 5 years ago was his last colonoscopy and a few benign polyps were removed. He also has a history of CKD diagnosed several months ago, and kidney stones in 1987, 1993, and 2009. ER course was notable for: (1) CT clear, no fx (2) CXR: left sided questionable atelectasis (3) K 6.1, lokelma given Recent Travel: denies PAST MEDICAL HISTORY: See HPI PAST SURGICAL HISTORY: See HPI Social History: Smoking: quit 27 years ago, 50pack year history Alcohol: socially Drugs: denies Allergies Penicillins Allergy (Severe, Verified 12/22/19 13:46) PT DO NOT REMEMBER. HOME MEDICATIONS: Home Medications Medication Instructions Recorded Celecoxib [CeleBREX -] 200 mg PO DAILY 03/11/13 Clopidogrel Bisulfate [Plavix -] 75 mg PO DAILY 03/11/13 Isosorbide Mononitrate [Imdur] 120 mg PO DAILY 03/11/13 Metoprolol Succinate [Toprol XL -] 50 mg PO BID 03/11/13 metFORMIN HCL [Glucophage -] 500 mg PO BID 03/11/13 Apixaban [Eliquis] 5 mg PO BID 03/19/18 Nortriptyline HCl [Pamelor -] 25 mg PO HS 03/19/18 Amiodarone HCl [Cordarone -] 100 mg PO DAILY 04/28/18 Atorvastatin Ca [Lipitor] 20 mg PO DAILY 04/28/18 Cholecalciferol (Vitamin D3) 1,000 unit PO DAILY 04/28/18 [Vitamin D3] Melatonin 3 mg PO HS 04/28/18 Niacin 500 mg PO DAILY 04/28/18 Ranolazine [Ranexa] 500 mg PO BID 12/22/19 Zolpidem Tartrate [Ambien] 10 mg PO HS 12/22/19 REVIEW OF SYSTEMS CONSTITUTIONAL: Absent: fever, chills, diaphoresis, generalized weakness, malaise, loss of appetite, weight change HEENT: Absent: rhinorrhea, nasal congestion, throat pain, throat swelling, difficulty swallowing, mouth swelling, ear pain, eye pain, visual changes CARDIOVASCULAR: Absent: chest pain, syncope, palpitations, irregular heart rate, lightheadedness , peripheral edema RESPIRATORY: Absent: cough, shortness of breath, dyspnea with exertion, orthopnea, wheezing, stridor, hemoptysis GASTROINTESTINAL: Absent: abdominal pain, abdominal distension, nausea, vomiting, diarrhea, constipation, melena, hematochezia GENITOURINARY: Absent: dysuria, frequency, urgency, hesitancy, hematuria, flank pain, genital pain MUSCULOSKELETAL: Absent: myalgia, arthralgia, joint swelling, back pain, neck pain SKIN: Absent: rash, itching, pallor HEMATOLOGIC/IMMUNOLOGIC: Absent: easy bleeding, easy bruising, lymphadenopathy, frequent infections ENDOCRINE: Absent: unexplained weight gain, unexplained weight loss, heat intolerance, cold intolerance NEUROLOGIC: Absent: headache, focal weakness or paresthesias, dizziness, unsteady gait, seizure, mental status changes, bladder or bowel incontinence PSYCHIATRIC: Absent: anxiety, depression, suicidal or homicidal ideation, hallucinations. PHYSICAL EXAMINATION Vital Signs - 24 hr 12/22/19 12/22/19 12/22/19 12:57 13:30 19:40 Temperature 97.7 F Pulse Rate 52 L Pulse Rate [ Right Radial] Pulse Rate [ 58 L Right] Respiratory 18 18 Rate Blood Pressure 120/68 Blood Pressure [Left Arm] Blood Pressure 137/75 [Right Arm] O2 Sat by Pulse 91 L 95 95 Oximetry (%) 12/23/19 03:40 Temperature 97.4 F L Pulse Rate Pulse Rate [ 106 H Right Radial] Pulse Rate [ 106 H Right] Respiratory 20 Rate Blood Pressure Blood Pressure 131/77 [Left Arm] Blood Pressure [Right Arm] O2 Sat by Pulse 96 Oximetry (%) Orthostatics: supine 125/69 HR 52, sitting 142/73 HR 50 GENERAL: Awake, alert, and fully oriented, in no acute distress. HEAD: Hematoma on forehead EYES: Pupils equal, round and reactive to light, extraocular movements intact, sclera anicteric, conjunctiva clear. No lid lag. EARS, NOSE, THROAT: Ears normal, nares patent, oropharynx clear without exudates. Moist mucous membranes. NECK: Normal range of motion, supple without lymphadenopathy, JVD, or masses. LUNGS: decreased at left base HEART: bradycardia, regular rhythm ABDOMEN: Soft, nontender, not distended, normoactive bowel sounds, no guarding, no rebound, no masses. No hepatomegaly or splenomegaly. MUSCULOSKELETAL: Normal range of motion at all joints. No bony deformities or tenderness. No CVA tenderness. UPPER EXTREMITIES: 2+ pulses, warm, well-perfused. No cyanosis. No clubbing. No peripheral edema. LOWER EXTREMITIES: 2+ pulses, warm, well-perfused. No calf tenderness. No peripheral edema. NEUROLOGICAL: Cranial nerves II-XII intact. Normal speech. PSYCHIATRIC: Cooperative. Good eye contact. Appropriate mood and affect. SKIN: Warm, dry, normal turgor, no rashes or lesions noted, normal capillary refill. Laboratory Results - last 24 hr 12/22/19 12/22/19 12/22/19 14:12 14:52 14:52 WBC 7.2 RBC 3.63 L Hgb 11.8 Hct 35.2 L MCV 96.8 H MCH 32.6 MCHC 33.7 RDW 15.7 Plt Count 293 MPV 8.7 D Absolute Neuts (auto) 5.8 Neutrophils % 80.2 D Lymphocytes % 11.3 D Monocytes % 6.1 Eosinophils % 1.8 Basophils % 0.6 Nucleated RBC % 0 PT with INR 22.40 H INR 1.89 H PTT (Actin FS) 40.0 H Sodium Potassium Chloride Carbon Dioxide Anion Gap BUN Creatinine Est GFR (CKD-EPI)AfAm Est GFR (CKD-EPI)NonAf POC Glucometer Random Glucose Calcium Magnesium Total Bilirubin AST ALT Alkaline Phosphatase Creatine Kinase Cancelled Troponin I Cancelled Total Protein Albumin Urine Color Urine Appearance Urine pH Ur Specific [place] Urine Protein Urine Glucose (UA) Urine Ketones Urine Blood Urine Nitrite Urine Bilirubin Urine Urobilinogen Ur Leukocyte Esterase Urine WBC (Auto) Urine RBC (Auto) Urine Casts (Auto) U Epithel Cells (Auto) Urine Bacteria (Auto) 12/22/19 12/22/19 12/22/19 14:52 17:30 19:00 WBC RBC Hgb Hct MCV MCH MCHC RDW Plt Count MPV Absolute Neuts (auto) Neutrophils % Lymphocytes % Monocytes % Eosinophils % Basophils % Nucleated RBC % PT with INR INR PTT (Actin FS) Sodium Cancelled 136 Potassium Cancelled 6.1 H* Chloride Cancelled 107 Carbon Dioxide Cancelled 21 Anion Gap Cancelled 8 BUN Cancelled 38.4 H Creatinine Cancelled 2.4 H Est GFR (CKD-EPI)AfAm Cancelled 30.11 Est GFR (CKD-EPI)NonAf Cancelled 25.98 POC Glucometer Random Glucose Cancelled 81 Calcium Cancelled 9.0 Magnesium Cancelled 1.5 L Total Bilirubin Cancelled 0.7 AST Cancelled 36 ALT Cancelled 28 Alkaline Phosphatase Cancelled 69 Creatine Kinase 133 Troponin I 0.49 H Total Protein Cancelled 7.6 Albumin Cancelled 3.0 L Urine Color Dk yellow Urine Appearance Clear Urine pH 5.0 Ur Specific [place] 1.024 Urine Protein 1+ H Urine Glucose (UA) Negative Urine Ketones Trace H Urine Blood Negative Urine Nitrite Negative Urine Bilirubin Negative Urine Urobilinogen 0.2 Ur Leukocyte Esterase Trace Urine WBC (Auto) 5 Urine RBC (Auto) 2 Urine Casts (Auto) 9 U Epithel Cells (Auto) 1.4 Urine Bacteria (Auto) 1.0 12/22/19 12/23/19 12/23/19 20:42 01:00 01:00 WBC RBC Hgb Hct MCV MCH MCHC RDW Plt Count MPV Absolute Neuts (auto) Neutrophils % Lymphocytes % Monocytes % Eosinophils % Basophils % Nucleated RBC % PT with INR INR PTT (Actin FS) Sodium 138 Potassium 5.0 Chloride 107 Carbon Dioxide 20 L Anion Gap 11 BUN 39.0 H Creatinine 2.3 H Est GFR (CKD-EPI)AfAm 31.70 Est GFR (CKD-EPI)NonAf 27.35 POC Glucometer 118 Random Glucose 80 Calcium 8.9 Magnesium Total Bilirubin AST ALT Alkaline Phosphatase Creatine Kinase Troponin I 0.45 H Total Protein Albumin Urine Color Urine Appearance Urine pH Ur Specific [place] Urine Protein Urine Glucose (UA) Urine Ketones Urine Blood Urine Nitrite Urine Bilirubin Urine Urobilinogen Ur Leukocyte Esterase Urine WBC (Auto) Urine RBC (Auto) Urine Casts (Auto) U Epithel Cells (Auto) Urine Bacteria (Auto) ASSESSMENT/PLAN: 74 year old male with PMH of DM, HTN, CAD (s/p stent placement 1 month ago), AFib (Eliquis and Amiodarone), and R iliac stent. He presented to the ER after a syncopal episode earlier today #Syncope - Neuro vs cardiac causes vs orthostatic casues - EKG: First degree AV block, AD and septal infarct of undetermined age - ACS r/o: Troponin 0.49 -> 0.45, downtrending - Echo ordered, cardio consult with Dr. Kim Garner - Orthostatics negative: supine 125/69 HR 52, sitting 142/73 HR 50 - Brain MRI, EEG, Neuro consult ordered - UTox ordered #Fall 2/2 syncope - CT Head, c-spine, CXR and wrist X Rays show no signs of fx - Tylenol given for pain, pt stated pain unimproved, 5mg Oxycodone given ( avoiding NSAIDs due to CKD) #Hyperkalemia - Cause unclear, may be due to CKD - Lokelma 10mg given went from 6.1 -> 5.0 - Will monitor #Anemia - H/H 11.8/35.2 with MCV 96.9 suggestive of macrocytic anemia - Iron TIBC, B12/Folate ordered - Will follow H/H #Possible Amiodarone induced lung injury - May explain cough and CXR findings - CT Chest ordered, avoid contrast due to CKD #CKD - Hydrated with N/S - Avoid nephrotoxic drugs - Nephrology consulted #Hx of DM - BGM, ISS #Hx of HTN - Resume antihypertensives once confirmed #FEN - Mg 1.5, 1gm MgSO4 given - DM/Na controlled diet #DVT - Lovenox Visit type - Emergency Visit Emergency Visit: Yes ED Registration Date: 12/22/19 Care time: The patient presented to the Emergency Department on the above date and was hospitalized for further evaluation of their emergent condition. - New Patient This patient is new to me today: Yes Date on this admission: 12/23/19 - Critical Care Critical Care patient: No ATTENDING PHYSICIAN STATEMENT I saw and evaluated the patient. I reviewed the resident's note and discussed the case with the resident. I agree with the resident's findings and plan as documented. SUBJECTIVE: OBJECTIVE: ASSESSMENT AND PLAN:
--- NOTE | 2019-12-23 08:27 | PN ---
Progress Note (short form) - Note Progress Note: 74 year old male with PMH of DM, HTN, CAD (s/p stent placement 1 month ago), AFib (Eliquis and Amiodarone), and R iliac stent. He presented to the ER after a syncopal episode .Syncopal and cardiac w/u in progress Problem List - Problems (1) S/P insertion of iliac artery stent Code(s): Z95.828 - PRESENCE OF OTHER VASCULAR IMPLANTS AND GRAFTS (2) Hyperkalemia Assessment/Plan: K stabilizing robertkelma given continue to monitor Code(s): E87.5 - HYPERKALEMIA (3) Atrial fibrillation Assessment/Plan: Continue amio 100 qd, Ranexa 500 bid, Toprol XL 50 bid Code(s): I48.91 - UNSPECIFIED ATRIAL FIBRILLATION (4) CAD in [place] artery Assessment/Plan: Imdur 120 qd, Eliquis 5 bid, Plavix 75 qd, Lipitor 20 qd eventual ARB or Entresto as renal fxn Code(s): I25.10 - ATHSCL HEART DISEASE OF [place] CORONARY ARTERY W/O ANG PCTRS (5) DM type 2 (diabetes mellitus, type 2) Assessment/Plan: BGM AC/Hs with novolog sliding scale diabetic diet Code(s): E11.9 - TYPE 2 DIABETES MELLITUS WITHOUT COMPLICATIONS Qualifiers: Diabetes mellitus longterm insulin use: without junior copywriter use (6) HLD (hyperlipidemia) Code(s): E78.5 - HYPERLIPIDEMIA, UNSPECIFIED Qualifiers: Hyperlipidemia type: pure hypercholesterolemia Qualified Code(s): E78.00 - Pure hypercholesterolemia, unspecified; E78.0 - Pure hypercholesterolemia (7) AV bloc first degree Assessment/Plan: EKG: First degree AV block, AD and septal infarct of undetermined age Code(s): I44.0 - ATRIOVENTRICULAR BLOCK, FIRST DEGREE (8) Acute kidney injury superimposed on chronic kidney disease Assessment/Plan: renal following Renal US pending Code(s): N17.9 - ACUTE KIDNEY FAILURE, UNSPECIFIED; N18.9 - CHRONIC KIDNEY DISEASE, UNSPECIFIED Visit type - Emergency Visit Emergency Visit: Yes ED Registration Date: 12/22/19 Care time: The patient presented to the Emergency Department on the above date and was hospitalized for further evaluation of their emergent condition. - New Patient This patient is new to me today: Yes Date on this admission: 12/23/19 - Critical Care Critical Care patient: No - Discharge Referral Referred to [facility] Med P.C.: No
[2019-12-23 08:53] LABS: IRON SERUM 93 ug/dL (50-175); TOTAL IRON BINDING CAPACITY 278 ug/dL (250-450)
[2019-12-23] MEDS ORDERED: ENOXAPARIN NA (PORCINE) 40 MG/0.4 ML DISP.SYRIN SQ SCH (10:00)
[2019-12-23] MEDS: INSULIN (NOVOLOG) ASPART 100 UNITS/ML 10ML VIAL SQ SCH ×3 (10:20→23:12)
[2019-12-23] MEDS: ISOSORBIDE MONONITRATE 60 MG TAB.SR.24H (FP) PO SCH (11:42)
[2019-12-23] MEDS: NIACIN 500 MG TABLET PO SCH (11:44)
--- NOTE | 2019-12-23 12:32 | CON.CARD ---
Consult Consult Specialty:: Cardiology Referred by:: Hospitalist Medicine Reason for Consultation:: Syncope - History of Present Illness Chief Complaint: Syncope History of Present Illness: Patient is a 74 year old man with a PMH of NIDDM, HTN, CAD s/p CABG (atretic GOYAL->LAD, RA->OM, SVG->RCA), s/p complex SAMIRA dLM, ostial LAD to mid LAD, Kidney stones, paroxysmal Afib s/p cardioversion x2 on eliquis, CEA x2, Penicillin allergy and right Iliac stenting presenting after witnessed syncope and head trauma. Patient reports he woke feeling unwell without any specific complaints; proceeded to his PCP. After leaving went to dealership and fell face forward and hit head. Denies any prodromal symptoms including headache, lightheadedness, dizziness, chest pain, SOB, abdominal pain, nausea, vomiting, diaphoresis, leg pain, palpitations, weakness, hematuria, dysuria or back pain. Currently feels pain in both wrists because he thinks he braced his fall. Patient ambulatory at the scene with assist. Reports that he had three episodes of syncope 5 years ago. Denies alcohol, tobacco or illicit drug use. No sick contacts or recent travels. Most recent echo post SAMIRA shows severely decreased LVEF 25-30%, mod LAE, mild-mod MR, TR, tr NV and trace pericardial effusion. Last saw Dr. Alvarez 11/26/2019. - History Source History Provided By: Patient Limitations to Obtaining History: No Limitations - Past Medical History Cardio/Vascular: Yes: AFIB (s/p DCCV, pt now on eliquis), CAD, HTN, Hyperlipdemia, [place] Gastrointestinal: Yes: GERD, Other (dysphagia) Renal/: Yes: Renal Inusuff. 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 History of Recent Travel: No Home Medications - Allergies Allergies/Adverse Reactions: Allergies Allergy/AdvReac Type Severity Reaction Status Date / Time Penicillins Allergy Severe Verified 12/22/19 13:46 - Home Medications Home Medications: Ambulatory Orders Celecoxib [CeleBREX -] 200 mg PO DAILY 03/11/13 Clopidogrel Bisulfate [Plavix -] 75 mg PO DAILY 03/11/13 Isosorbide Mononitrate [Imdur] 120 mg PO DAILY 03/11/13 Metoprolol Succinate [Toprol XL -] 50 mg PO BID 03/11/13 metFORMIN HCL [Glucophage -] 500 mg PO BID 03/11/13 Apixaban [Eliquis] 5 mg PO BID 03/19/18 Nortriptyline HCl [Pamelor -] 25 mg PO HS 03/19/18 Amiodarone HCl [Cordarone -] 100 mg PO DAILY 04/28/18 Atorvastatin Ca [Lipitor] 20 mg PO DAILY 04/28/18 Cholecalciferol (Vitamin D3) [Vitamin D3] 1,000 unit PO DAILY 04/28/18 Melatonin 3 mg PO HS 04/28/18 Niacin 500 mg PO DAILY 04/28/18 Ranolazine [Ranexa] 500 mg PO BID 12/22/19 Zolpidem Tartrate [Ambien] 10 mg PO HS 12/22/19 Review of Systems - Review of Systems Neurological: reports: Syncope Vital Signs: Vital Signs Temperature 97.8 F 12/23/19 10:10 Pulse Rate 54 L 12/23/19 10:10 Respiratory Rate 19 12/23/19 10:10 Blood Pressure 165/91 12/23/19 10:10 O2 Sat by Pulse Oximetry (%) 96 12/23/19 10:13 Constitutional: Yes: No Distress, Calm Neck: Yes: Supple Respiratory: Yes: Regular, CTA Bilaterally Gastrointestinal: Yes: Normal Bowel Sounds, Soft Cardiovascular: Yes: Regular Rate and Rhythm JVD: No Carotid Bruit: No Heart Sounds: Yes: S1, S2 Murmur: Yes: Systolic Murmur, Grade 1 Edema: No - Other Data Labs, Other Data: CBC, BMP 12/22/19 14:52 12/23/19 01:00 INR, PTT INR 1.89 (0.83-1.09) H 12/22/19 14:12 Troponin, BNP 12/22/19 12/22/19 12/23/19 14:52 17:30 01:00 Troponin I Cancelled 0.49 H 0.45 H Troponin, BNP 12/22/19 12/22/19 12/23/19 14:52 17:30 01:00 Troponin I Cancelled 0.49 H 0.45 H SB @ 1st deg AVB, LAD, IRBBB Ejection Fraction %: LVEF > or = 40 % Imaging - Results Cat Scan: Report Reviewed (Chest CT: Worsening chronic interstitial lung disease HCT: Left scalp hematoma) Problem List - Problems (1) Demand ischemia Code(s): I24.8 - OTHER FORMS OF ACUTE ISCHEMIC HEART DISEASE (2) CKD (chronic kidney disease) Code(s): N18.9 - CHRONIC KIDNEY DISEASE, UNSPECIFIED Qualifiers: Chronic kidney disease stage: stage 3 (moderate) Qualified Code(s): N18.3 - Chronic kidney disease, stage 3 (moderate) (3) Elevated troponin Code(s): R79.89 - OTHER SPECIFIED ABNORMAL FINDINGS OF BLOOD CHEMISTRY (4) Hyperkalemia Code(s): E87.5 - HYPERKALEMIA (5) S/P insertion of iliac artery stent Code(s): Z95.828 - PRESENCE OF OTHER VASCULAR IMPLANTS AND GRAFTS (6) Syncope Code(s): R55 - SYNCOPE AND COLLAPSE Qualifiers: Syncope type: unspecified Qualified Code(s): R55 - Syncope and collapse (7) Atrial fibrillation Code(s): I48.91 - UNSPECIFIED ATRIAL FIBRILLATION (8) CAD in [place] artery Code(s): I25.10 - ATHSCL HEART DISEASE OF [place] CORONARY ARTERY W/O ANG PCTRS (9) DM type 2 (diabetes mellitus, type 2) Code(s): E11.9 - TYPE 2 DIABETES MELLITUS WITHOUT COMPLICATIONS Qualifiers: Diabetes mellitus long term acute care registered nurse insulin use: without long term acute care registered nurse use (10) HLD (hyperlipidemia) Code(s): E78.5 - HYPERLIPIDEMIA, UNSPECIFIED Qualifiers: Hyperlipidemia type: pure hypercholesterolemia Qualified Code(s): E78.00 - Pure hypercholesterolemia, unspecified; E78.0 - Pure hypercholesterolemia (11) S/P CABG (coronary artery bypass graft) Code(s): Z95.1 - PRESENCE OF AORTOCORONARY BYPASS GRAFT (12) S/P coronary artery stent placement Code(s): Z95.5 - PRESENCE OF CORONARY ANGIOPLASTY IMPLANT AND GRAFT (13) Ischemic cardiomyopathy Code(s): I25.5 - ISCHEMIC CARDIOMYOPATHY Assessment/Plan 12/23/2019 Echo: Normal LV size with severely decreased LV fxn 30-35%, normal RV size and fxn, mild MR, TR, severe pulm HTN, tr NV 11/12/2019 Echo: Normal LV size with severely decreased LVEF 25-30% with anteroseptum, anterior, apex AK and rest variable HK, mod LAE, normal RV size and fxn, mild-mod MR, TR, tr NV, pericardial effusion 1. Syncope with closed head trauma 2. CAD s/p CABG, complex stent dLM->mid LAD, demand ischemia 3. Severe LV systolic dysfunction w/o evidence of LV failure 4. Hypertension 5. Hyperlipidemia 6. Type 2 DM 7. Carotid stenosis s/p right CEA and stent 8. CKD with Hyperkalemia 9. Anemia of CKD 10. Paroxysmal afib on Eliquis P:1. Since LVEF remains depressed, may require ICD for primary prophylaxis 2. Trend trops to document peak 3. Continue amio 100 qd, Ranexa 500 bid, Toprol XL 50 bid, Imdur 120 qd, Eliquis 5 bid, Plavix 75 qd, Lipitor 20 qd, eventual ARB or Entresto as renal fxn and hyperkalemia stabilizes (given lokelma), otherwise hydralazine, f/u renal U/S. 4. Thank you for consultative opportunity
--- NOTE | 2019-12-23 12:42 | EKG ---
Test Reason : Blood Pressure : / mmHG Vent. Rate : 050 BPM Atrial Rate : 050 BPM P-R Int : 218 ms QRS Dur : 108 ms QT Int : 498 ms P-R-T Axes : 072 -59 075 degrees QTc Int : 454 ms SINUS BRADYCARDIA WITH 1ST DEGREE A-V BLOCK LEFT AXIS DEVIATION INCOMPLETE RIGHT BUNDLE BRANCH BLOCK SEPTAL INFARCT (CITED ON OR BEFORE 05-NOV-2018) ABNORMAL ECG WHEN COMPARED WITH ECG OF 05-NOV-2018 12:27, VENT. RATE HAS DECREASED BY 24 BPM INCOMPLETE RIGHT BUNDLE BRANCH BLOCK IS NOW PRESENT QUESTIONABLE CHANGE IN INITIAL FORCES OF SEPTAL LEADS Confirmed by ANA ORTA MD ([id number]) on 12/23/2019 12:42:10 PM Referred By: Confirmed By:ANA ORTA MD
[2019-12-23 13:39] VITALS: BMI 21.7
[2019-12-23] MEDS ORDERED: PT OWN MED DRAWER 7, Y5N ONE ×3 (13:40→17:49)
[2019-12-23] MEDS: RANOLAZINE E.R. 500 MG TABLET (FP) PO SCH ×2 (13:56→23:11)
--- NOTE | 2019-12-23 13:57 | ECHO ---
Name: ANITA RAGSDALE Exam:Adult Echocardiogram Study Date: 12/23/2019 11:55 AM Age: 74 yrs Reason For Study: SYNCOPE Height: 70 in Weight: 160 lb BSA: 1.9 m2 MMode/2D Measurements & Calculations IVSd: 1.0 cm Ao root diam: 3.0 cm LVIDd: 5.0 cm LA dimension: 4.7 cm LVIDs: 3.5 cm ACS: 1.5 cm LVPWd: 0.95 cm EDV(Teich): 117.3 ml LVOT diam: 2.0 cm ESV(Teich): 50.1 ml LVLd ap4: 7.7 cm SV(MOD-sp4): 69.3 ml EDV(MOD-sp4): 144.0 ml LVLs ap4: 6.9 cm ESV(MOD-sp4): 74.7 ml LAV (MOD-bp): 65.3 ml TAPSE: 2.1 cm RV S Roge: 11.9 cm/sec Doppler Measurements & Calculations MV E max roge: 48.5 cm/sec Ao V2 max: 132.7 cm/sec MV A max roge: 82.0 cm/sec Ao max P.0 mmHg MV E/A: 0.59 Ao V2 mean: 84.9 cm/sec MV dec time: 0.28 sec Ao mean P.4 mmHg Ao V2 VTI: 28.4 cm DARIO(I,D): 1.8 cm2 DARIO(V,D): 2.2 cm2 LV V1 max P.2 mmHg MR max roge: 572.8 cm/sec LV V1 mean P.2 mmHg MR max P.2 mmHg LV V1 max: 88.8 cm/sec LV V1 mean: 49.6 cm/sec LV V1 VTI: 16.1 cm SV(LVOT): 51.8 ml TR max roge: 400.1 cm/sec TR max P.1 mmHg PA V2 max: 95.3 cm/sec PI end-d roge: 165.7 cm/sec PA max P.6 mmHg PA acc time: 0.11 sec Med Peak E' Roge: 3.5 cm/sec PA pr(Accel): 29.9 mmHg Med E/e': 13.9 Lat Peak E' Roge: 7.1 cm/sec Lat E/e': 6.9 Procedure A complete two-dimensional transthoracic echocardiogram was performed (2D, M-mode, Doppler and color flow Doppler). Left Ventricle The left ventricle is normal in size. Left ventricular systolic function is severely reduced. Ejectio n Fraction = 30-35%. There is severe global hypokinesis of the left ventricle. Right Ventricle The right ventricle is normal in size and function. Atria Normal left and right atrial size and function. Small PFO seen by color doppler with left to right fl ow. Mitral Valve There is mild mitral regurgitation. Tricuspid Valve There is mild tricuspid regurgitation. There is severe pulmonary hypertension. Aortic Valve No hemodynamically significant valvular aortic stenosis. No aortic regurgitation is present. Pulmonic Valve Trace pulmonic valvular regurgitation. Great Vessels The aortic root is normal size. Pericardium/Pleura There is no pericardial effusion. Interpretation Summary Left ventricular systolic function is severely reduced. The right ventricle is normal in size and function. There is mild mitral regurgitation. There is mild tricuspid regurgitation. There is severe pulmonary hypertension. Trace pulmonic valvular regurgitation. Small PFO seen by color doppler with left to right flow. MD Gary Vicente 12/23/2019 01:56 PM
--- NOTE | 2019-12-23 14:22 | CONSULT ---
Consult Consult Specialty:: Nephrology Reason for Consultation:: CKD - History of Present Illness Chief Complaint: syncope History of Present Illness: Pt is a 74 year old male with pmhx of DM, HTN, CAD, a-fib, PVD, syncope and CKD who presents to the ER with an episode of syncope. He says he was walking into a car dealership when next thing he noticed that he was on the floor. He has had multiple episodes of syncope in the past. He did hit the front of his head. I was called to evaluate him for elevated support clerk. He has history of CKD however has not seen a interior assemblies installer. He had stents placed about a month ago in [place]. He says that his support clerk was about 2.6. He denies chest pain or palpitations. He denies dysuria or hematuria. He is awake and alert. - History Source History Provided By: Patient - Past Medical History Cardio/Vascular: Yes: AFIB (s/p DCCV, pt now on eliquis), CAD, HTN, Hyperlipdemia, NE Gastrointestinal: Yes: GERD, Other (dysphagia) Renal/: Yes: Renal Inusuff Endocrine: Yes: Diabetes Mellitus, Other (thyroid nodule) - Past Surgical History Past Surgical History: Yes: CABG, Carotid Endarterectomy (open carotid endarectomy x 2, stent placement x 1.), Colonoscopy (2011), Joint Replacement - Alcohol/Substance Use Hx Alcohol Use: No History of Substance Use: reports: None - Smoking History Smoking history: Former smoker Have you smoked in the past 12 months: No If you are a former smoker, when did you quit?: 1990 - Social History ADL: Independent 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 History of Recent Travel: No Home Medications - Allergies Allergies/Adverse Reactions: Allergies Allergy/AdvReac Type Severity Reaction Status Date / Time Penicillins Allergy Severe Verified 12/22/19 13:46 - Home Medications Home Medications: Ambulatory Orders Celecoxib [CeleBREX -] 200 mg PO DAILY 03/11/13 Clopidogrel Bisulfate [Plavix -] 75 mg PO DAILY 03/11/13 Isosorbide Mononitrate [Imdur] 120 mg PO DAILY 03/11/13 Metoprolol Succinate [Toprol XL -] 50 mg PO BID 03/11/13 metFORMIN HCL [Glucophage -] 500 mg PO BID 03/11/13 Apixaban [Eliquis] 5 mg PO BID 03/19/18 Nortriptyline HCl [Pamelor -] 25 mg PO HS 03/19/18 Amiodarone HCl [Cordarone -] 100 mg PO DAILY 04/28/18 Atorvastatin Ca [Lipitor] 20 mg PO DAILY 04/28/18 Cholecalciferol (Vitamin D3) [Vitamin D3] 1,000 unit PO DAILY 04/28/18 Melatonin 3 mg PO HS 04/28/18 Niacin 500 mg PO DAILY 04/28/18 Ranolazine [Ranexa] 500 mg PO BID 12/22/19 Zolpidem Tartrate [Ambien] 10 mg PO HS 12/22/19 Family Medical History Family History: Denies Review of Systems - Review of Systems Constitutional: reports: Malaise Eyes: reports: No Symptoms HENT: reports: No Symptoms Neck: reports: No Symptoms Cardiovascular: reports: No Symptoms. denies: Edema, Shortness of Breath Respiratory: denies: SOB on Exertion Gastrointestinal: reports: No Symptoms Genitourinary: reports: No Symptoms Musculoskeletal: reports: No Symptoms Integumentary: reports: No Symptoms Neurological: reports: Syncope Endocrine: reports: No Symptoms Hematology/Lymphatic: reports: No Symptoms Psychiatric: reports: No Symptoms Physical Exam Vital Signs: Vital Signs Temperature 98 F 12/23/19 13:30 Pulse Rate 54 L 12/23/19 13:30 Respiratory Rate 18 12/23/19 13:30 Blood Pressure 149/77 12/23/19 13:30 O2 Sat by Pulse Oximetry (%) 98 12/23/19 13:30 Constitutional: Yes: Calm Eyes: Yes: Conjunctiva Clear HENT: Yes: Atraumatic Neck: Yes: Supple Cardiovascular: Yes: S1, S2 Respiratory: Yes: CTA Bilaterally Gastrointestinal: Yes: Soft Renal/: Yes: WNL Musculoskeletal: Yes: WNL Edema: No Neurological: Yes: Oriented Psychiatric: Yes: Oriented Labs: CBC, BMP 12/22/19 14:52 12/23/19 01:00 Imaging - Results Cat Scan: Report Reviewed Problem List - Problems (1) CKD (chronic kidney disease) Code(s): N18.9 - CHRONIC KIDNEY DISEASE, UNSPECIFIED (2) Syncope Code(s): R55 - SYNCOPE AND COLLAPSE Qualifiers: Syncope type: unspecified Qualified Code(s): R55 - Syncope and collapse (3) Atrial fibrillation Code(s): I48.91 - UNSPECIFIED ATRIAL FIBRILLATION (4) CAD in [place] artery Code(s): I25.10 - ATHSCL HEART DISEASE OF [place] CORONARY ARTERY W/O ANG PCTRS Assessment/Plan Current Medications Generic Name Dose Route Start Last Admin Trade Name Freq PRN Reason Stop Dose Admin Atorvastatin Calcium 20 mg 12/23/19 22:00 Lipitor - PO HS NATI Enoxaparin Sodium 40 mg 12/23/19 10:00 12/23/19 11:43 Lovenox - SQ 40 mg DAILY NATI Administration Insulin Aspart 1 units 12/23/19 07:00 12/23/19 10:20 Novolog Vial SQ Not Given ACHS [facility] Protocol Isosorbide Mononitrate 120 mg 12/23/19 10:00 12/23/19 11:42 Imdur - PO 120 mg DAILY NATI Administration Metoprolol Succinate 50 mg 12/23/19 10:00 12/23/19 11:44 Toprol Xl - PO 50 mg BID NATI Administration Niacin 500 mg 12/23/19 10:00 12/23/19 11:44 Niacin PO 500 mg DAILY NATI Administration Ranolazine 500 mg 12/23/19 10:00 12/23/19 13:56 Ranexa - PO 500 mg BID NATI Administration Sodium Zirconium Cyclosilicate 10 gm 12/23/19 18:36 Lokelma PO 12/23/19 18:37 ONCE ONE Impression 1. CKD 2. hyperkalemia 3. cad 4. pvd 5. syncope 6. a-fib Plan - potassium improved - will give a dose of lokelma - repeat labs in am - will call for outpt labs to check baseline support clerk - check renal ultrasound - check prt to support clerk ratio - pt did get contrast in the past - will need more extensive renal workup as outpt
[2019-12-23] MEDS ORDERED: oxyCODONE HCL 5 MG TABLET PO PRN (15:59)
[2019-12-23] MEDS: ACETAMINOPHEN 325 MG TABLET (FP) PO PRN (16:19)
[2019-12-23 18:11] LABS: URINE APPEARANCE CLEAR; URINE BILIRUBIN NEGATIVE (NEGATIVE); URINE COLOR YELLOW; URINE GLUCOSE (UA) NEGATIVE (NEGATIVE); URINE KETONE TRACE (NEGATIVE); URINE LEUK ESTERASE NEGATIVE (NEGATIVE); URINE NITRITE NEGATIVE (NEGATIVE); URINE PROTEIN TRACE (NEGATIVE); URINE UROBILINOGEN 0.2 mg/dL (0.2-1.0)
[2019-12-23] MEDS ORDERED: SODIUM ZIRCONIUM CYCLOSILICATE (LOKELMA) 5 GM PACKET PO ONE (18:36)
--- NOTE | 2019-12-23 22:20 | CONSULT ---
Consult - text type - Consultation Consultation Note: NEUROLOGY CONSULTATION is greatly appreciated: Events reviewed. Patient examined. This 74 yo RH M man has long h/o HTN, HLD, DM and both ASHD and PVD, and Paroxysmal AFib S/P Right Carotid endarectomy x2 and carotid stednt. S/P CABG x 3 and right illiac stent for claudication. Maintained on: Celecoxib; Clopidogrel; Isosorbide; Metoprolol; metFORMIN; apixaban; Nortriptyline 25; Amiodarone; Atorvastatin; niacin; Ranexa; Ambien 10 mg Patient relates 6 faints in the last 3 years. 3 occured with prodomata of light headedness and he was able to control his fall. Three occurred without any warning signs including 1 yesterday, precipitating this admission. ROS: Numbness in both feet attributed to Diabetic Neuropathy CT of head (reviewed): Mild-moderate, diffuse, atrophy. GIBSON: BP's 140/90 without orthostatic changes. P= 50 (reg). Coarse right CEA scar. Decreased DP pulse on right. S/P sternotomy and left radial artery harvest. B/L orbital ecchymoses. No bruits. Good neck ROM. No Battles signs NEURO: MS/speech: Normal CN:II-XII: normal without nystagmus. Rhythmic left jaw tremor with reinforcement. Motor: Min rest tremor. No drift. Normal strength. +Cogwheel rigidity with reinforcement. Absent AJ's. Toes downgoing Coord: No FTN dystaxia Sensory: Decreased vibration to above the ankles. Romberg + Gait: Shuffling IMP: Non-focal exam Diabetic Peripheral neuropathy Extrapyramidal (Parkinsonian) features. Syncope. c/w Davidson-Guevara. R/O ventricular dysrhythmia. SUGGEST: Telemetry/ Prolonged halter/ loop monitor Check orthostatic BP (R/O dysautonomia) Neuro f/u for PD and PN- gait should get better wit Rx. Thank you very much, Jean Paul Valente MD
[2019-12-23] MEDS ORDERED: ZOLPIDEM TARTRATE 5 MG TABLET PO ONE (22:29)
[2019-12-23] MEDS: hydrALAZINE HCL 25 MG TABLET (FP) PO SCH (23:11)
[2019-12-23] MEDS: ATORVASTATIN CA 20 MG TABLET (FP) PO SCH (23:11)
[2019-12-24] MEDS: INSULIN (NOVOLOG) ASPART 100 UNITS/ML 10ML VIAL SQ SCH ×4 (06:54→22:24)
[2019-12-24 07:40] LABS: BASO % 1.3 % (0-2.0); EOS % 9.7 % (0-4.5); HEMATOCRIT 31.5 % (35.4-49); HEMOGLOBIN 10.6 GM/dL (11.7-16.9); LYMPH % 17.5 % (8-40); MCHC 33.6 g/dl (32.0-35.9); MEAN CELL VOLUME 95.1 fl (80-96); MEAN PLT VOLUME 7.8 fl (7.5-11.1); MONO % 11.3 % (3.8-10.2); NEUT % 60.2 % (42.8-82.8); PLATELET COUNT 230 K/MM3 (134-434); RBC 3.31 M/mm3 (4.00-5.60); RDW 15.6 % (11.9-15.9); WHITE BLOOD COUNT 5.8 K/mm3 (4.0-10.0)
[2019-12-24 07:59] LABS: ALBUMIN 2.7 g/dl (3.4-5.0); BLOOD UREA NITROGEN 28.1 mg/dL (7-18); CALCIUM 8.3 mg/dL (8.5-10.1); MAGNESIUM 1.5 mg/dL (1.8-2.4); POTASSIUM 5.1 mmol/L (3.5-5.1); TOT PROT 6.7 g/dl (6.4-8.2)
[2019-12-24] MEDS ORDERED: MAGNESIUM SULF 50% (8.12 MEQ/2 ML-1 GM VIAL) IVPB ONE (08:50)
[2019-12-24] MEDS ORDERED: MAGNESIUM OXIDE 400 MG TABLET (FP) PO ONE (08:50)
[2019-12-24] MEDS ORDERED: SODIUM ZIRCONIUM CYCLOSILICATE (LOKELMA) 5 GM PACKET PO ONE (09:25)
--- NOTE | 2019-12-24 10:02 | PN ---
Progress Note, Physician History of Present Illness: Light-headed and nauseous earlier today, no events on telemetry thus far. - Current Medication List Current Medications: Active Medications Acetaminophen (Tylenol -) 650 mg PO Q6H PRN PRN Reason: PAIN LEVEL 4 - 6 Last Admin: 12/23/19 16:19 Dose: 650 mg Amiodarone HCl (Cordarone -) 100 mg PO DAILY COUNTS INCLUDE 234 BEDS AT THE [facility] Apixaban (Eliquis -) 5 mg PO BID COUNTS INCLUDE 234 BEDS AT THE [facility] Atorvastatin Calcium (Lipitor -) 20 mg PO HS COUNTS INCLUDE 234 BEDS AT THE [facility] Last Admin: 12/23/19 23:11 Dose: 20 mg Hydralazine HCl (Apresoline -) 25 mg PO BID COUNTS INCLUDE 234 BEDS AT THE [facility] Last Admin: 12/23/19 23:11 Dose: 25 mg Insulin Aspart (Novolog Vial) 1 units SQ [facility] COUNTS INCLUDE 234 BEDS AT THE [facility]; Protocol Last Admin: 12/24/19 06:54 Dose: Not Given Isosorbide Mononitrate (Imdur -) 120 mg PO DAILY COUNTS INCLUDE 234 BEDS AT THE [facility] Last Admin: 12/23/19 11:42 Dose: 120 mg Magnesium Sulfate (Magnesium Sulfate) 1 gm IVPB ONCE ONE Stop: 12/24/19 08:51 Metoprolol Succinate (Toprol Xl -) 50 mg PO BID COUNTS INCLUDE 234 BEDS AT THE [facility] Last Admin: 12/23/19 23:11 Dose: 50 mg Niacin (Niacin) 500 mg PO DAILY COUNTS INCLUDE 234 BEDS AT THE [facility] Last Admin: 12/23/19 11:44 Dose: 500 mg Ranolazine (Ranexa -) 500 mg PO BID COUNTS INCLUDE 234 BEDS AT THE [facility] Last Admin: 12/23/19 23:11 Dose: 500 mg Sodium Zirconium Cyclosilicate (Lokelma) 10 gm PO ONCE ONE Stop: 12/24/19 09:26 Tamsulosin HCl (Flomax -) 0.4 mg PO DAILY@0830 COUNTS INCLUDE 234 BEDS AT THE [facility] - Objective Vital Signs: Vital Signs Temperature 97.4 F L 12/24/19 02:00 Pulse Rate 60 12/24/19 06:00 Respiratory Rate 18 12/24/19 06:00 Blood Pressure 144/83 12/24/19 06:00 O2 Sat by Pulse Oximetry (%) 98 12/23/19 13:30 Constitutional: Yes: No Distress, Calm Neck: Yes: Supple Cardiovascular: Yes: Regular Rate and Rhythm Respiratory: Yes: Regular, CTA Bilaterally Gastrointestinal: Yes: Normal Bowel Sounds, Soft Edema: No Labs: CBC, BMP 12/24/19 06:15 12/24/19 06:15 INR, PTT INR 1.89 (0.83-1.09) H 12/22/19 14:12 - ....Imaging EKG: Report Reviewed (Tele: No events) Problem List - Problems (1) Demand ischemia Code(s): I24.8 - OTHER FORMS OF ACUTE ISCHEMIC HEART DISEASE (2) CKD (chronic kidney disease) Code(s): N18.9 - CHRONIC KIDNEY DISEASE, UNSPECIFIED Qualifiers: Chronic kidney disease stage: stage 3 (moderate) Qualified Code(s): N18.3 - Chronic kidney disease, stage 3 (moderate) (3) Elevated troponin Code(s): R79.89 - OTHER SPECIFIED ABNORMAL FINDINGS OF BLOOD CHEMISTRY (4) Hyperkalemia Code(s): E87.5 - HYPERKALEMIA (5) S/P insertion of iliac artery stent Code(s): Z95.828 - PRESENCE OF OTHER VASCULAR IMPLANTS AND GRAFTS (6) Syncope Code(s): R55 - SYNCOPE AND COLLAPSE Qualifiers: Syncope type: unspecified Qualified Code(s): R55 - Syncope and collapse (7) Atrial fibrillation Code(s): I48.91 - UNSPECIFIED ATRIAL FIBRILLATION (8) CAD in [place] artery Code(s): I25.10 - ATHSCL HEART DISEASE OF [place] CORONARY ARTERY W/O ANG PCTRS (9) DM type 2 (diabetes mellitus, type 2) Code(s): E11.9 - TYPE 2 DIABETES MELLITUS WITHOUT COMPLICATIONS Qualifiers: Diabetes mellitus termite inspector insulin use: without detention use (10) HLD (hyperlipidemia) Code(s): E78.5 - HYPERLIPIDEMIA, UNSPECIFIED Qualifiers: Hyperlipidemia type: pure hypercholesterolemia Qualified Code(s): E78.00 - Pure hypercholesterolemia, unspecified; E78.0 - Pure hypercholesterolemia (11) S/P CABG (coronary artery bypass graft) Code(s): Z95.1 - PRESENCE OF AORTOCORONARY BYPASS GRAFT (12) S/P coronary artery stent placement Code(s): Z95.5 - PRESENCE OF CORONARY ANGIOPLASTY IMPLANT AND GRAFT (13) Ischemic cardiomyopathy Code(s): I25.5 - ISCHEMIC CARDIOMYOPATHY Assessment/Plan 12/23/2019 Echo: Normal LV size with severely decreased LV fxn 30-35%, normal RV size and fxn, mild MR, TR, severe pulm HTN, tr MO 11/12/2019 Echo: Normal LV size with severely decreased LVEF 25-30% with anteroseptum, anterior, apex AK and rest variable HK, mod LAE, normal RV size and fxn, mild-mod MR, TR, tr MO, pericardial effusion 12/23/2019 Renal US: Mild atrophic kidney with no hydro, probable left hydro, large PVR 1. Syncope with closed head trauma 2. CAD s/p CABG, complex stent dLM->mid LAD, demand ischemia 3. Severe LV systolic dysfunction w/o evidence of LV failure 4. Hypertension 5. Hyperlipidemia 6. Type 2 DM 7. Carotid stenosis s/p right CEA and stent 8. CKD with Hyperkalemia 9. Anemia of CKD 10. Paroxysmal afib on Eliquis P:1. Since LVEF remains depressed, may require ICD for primary prophylaxis, arrangements being made for [employer] fitting in meantime 2. Trend trops to document peak 3. Continue amio 100 qd, Ranexa 500 bid, Toprol XL 50 bid, Imdur 120 qd, Eliquis 5 bid, Plavix 75 qd, Lipitor 20 qd, eventual ARB or Entresto as renal fxn and hyperkalemia stabilizes (given lokelma), added hydralazine 25 bid
[2019-12-24] MEDS: RANOLAZINE E.R. 500 MG TABLET (FP) PO SCH ×2 (10:15→21:20)
[2019-12-24] MEDS: ISOSORBIDE MONONITRATE 60 MG TAB.SR.24H (FP) PO SCH (10:15)
[2019-12-24] MEDS: APIXABAN 5 MG TABLET PO SCH ×2 (11:51→21:20)
[2019-12-24] MEDS: hydrALAZINE HCL 25 MG TABLET (FP) PO SCH ×2 (11:51→21:20)
[2019-12-24] MEDS: NIACIN 500 MG TABLET PO SCH (11:52)
--- NOTE | 2019-12-24 12:46 | PN ---
Physical Exam: 74 M h/o DM2, HTN, CAD (s/p stent placement 1 month ago), AFib (Eliquis and Amiodarone), and R iliac stent. He presented to the ER after a syncopal episode. Patient endorses syncopal episode when entering dealership to buy his a car. Denies prodromal symptoms prior to fall. Cardiology recommending evaluation for ICD placement due to severely depressed EF. This morning patient feeling "upset" and "agitated", endorses stressors at home financially. Otherwise denies CP/SOB/LOC/dizziness. PE VSS GA comfortable, AAox3, sitting up in bed, NAD HEENT raccoon eyes+, negative nguyễn sign, neck supple, dry MM, no cervcial spine tenderness Chest CTAB, bibasilar crackles present CVS S1, S2+, RRR Abd Soft, NT, ND, BS+ Ext No LE edema Vital Signs - 24 hr 12/23/19 12/23/19 12/24/19 13:30 18:00 02:00 Temperature 98 F 97.4 F L Pulse Rate 54 L 49 L 49 L Respiratory 18 18 18 Rate Blood Pressure 149/77 143/81 121/73 O2 Sat by Pulse 98 Oximetry (%) 12/24/19 06:00 Temperature Pulse Rate 60 Respiratory 18 Rate Blood Pressure 144/83 O2 Sat by Pulse Oximetry (%) Microbiology 12/22/19 19:00 Urine - Urine Clean Catch Urine Culture - Final Group D Strep Or Entero Coccus Microbiology 12/22/19 19:00 Urine Culture - Final Urine - Urine Clean Catch Group D Strep Or Entero Coccus Laboratory Results - last 24 hr 12/23/19 12/23/19 12/23/19 13:40 16:25 17:15 WBC RBC Hgb Hct MCV MCH MCHC RDW Plt Count MPV Absolute Neuts (auto) Neutrophils % Lymphocytes % Monocytes % Eosinophils % Basophils % Nucleated RBC % Sodium Potassium Chloride Carbon Dioxide Anion Gap BUN Creatinine Est GFR (CKD-EPI)AfAm Est GFR (CKD-EPI)NonAf POC Glucometer 115 Random Glucose Calcium Magnesium Total Bilirubin AST ALT Alkaline Phosphatase Troponin I 0.49 H Total Protein Albumin Urine Color Urine Appearance Urine pH Ur Specific [place] Urine Protein Urine Glucose (UA) Urine Ketones Urine Blood Urine Nitrite Urine Bilirubin Urine Urobilinogen Ur Leukocyte Esterase U Random Total Protein 37.2 H Urine Creatinine 82.0 Protein/Creatinin Ratio 0.5 12/23/19 12/23/19 12/24/19 17:15 23:09 06:15 WBC RBC Hgb Hct MCV MCH MCHC RDW Plt Count MPV Absolute Neuts (auto) Neutrophils % Lymphocytes % Monocytes % Eosinophils % Basophils % Nucleated RBC % Sodium 136 Potassium 5.1 Chloride 107 Carbon Dioxide 23 Anion Gap 6 L BUN 28.1 H Creatinine 2.0 H Est GFR (CKD-EPI)AfAm 37.53 Est GFR (CKD-EPI)NonAf 32.38 POC Glucometer 113 Random Glucose 88 Calcium 8.3 L Magnesium 1.5 L Total Bilirubin 1.0 AST 31 ALT 24 Alkaline Phosphatase 66 Troponin I Total Protein 6.7 Albumin 2.7 L Urine Color Yellow Urine Appearance Clear Urine pH 5.0 Ur Specific [place] 1.017 Urine Protein Trace Urine Glucose (UA) Negative Urine Ketones Trace H Urine Blood Negative Urine Nitrite Negative Urine Bilirubin Negative Urine Urobilinogen 0.2 Ur Leukocyte Esterase Negative U Random Total Protein Urine Creatinine Protein/Creatinin Ratio 12/24/19 12/24/19 12/24/19 06:15 06:15 06:45 WBC 5.8 RBC 3.31 L Hgb 10.6 L Hct 31.5 L MCV 95.1 MCH 32.0 MCHC 33.6 RDW 15.6 Plt Count 230 D MPV 7.8 D Absolute Neuts (auto) 3.5 Neutrophils % 60.2 D Lymphocytes % 17.5 D Monocytes % 11.3 H D Eosinophils % 9.7 H D Basophils % 1.3 Nucleated RBC % 0 Sodium Potassium Chloride Carbon Dioxide Anion Gap BUN Creatinine Est GFR (CKD-EPI)AfAm Est GFR (CKD-EPI)NonAf POC Glucometer 94 Random Glucose Calcium Magnesium Total Bilirubin AST ALT Alkaline Phosphatase Troponin I 0.42 H Total Protein Albumin Urine Color Urine Appearance Urine pH Ur Specific [place] Urine Protein Urine Glucose (UA) Urine Ketones Urine Blood Urine Nitrite Urine Bilirubin Urine Urobilinogen Ur Leukocyte Esterase U Random Total Protein Urine Creatinine Protein/Creatinin Ratio 12/24/19 12:10 WBC RBC Hgb Hct MCV MCH MCHC RDW Plt Count MPV Absolute Neuts (auto) Neutrophils % Lymphocytes % Monocytes % Eosinophils % Basophils % Nucleated RBC % Sodium Potassium Chloride Carbon Dioxide Anion Gap BUN Creatinine Est GFR (CKD-EPI)AfAm Est GFR (CKD-EPI)NonAf POC Glucometer 111 Random Glucose Calcium Magnesium Total Bilirubin AST ALT Alkaline Phosphatase Troponin I Total Protein Albumin Urine Color Urine Appearance Urine pH Ur Specific [place] Urine Protein Urine Glucose (UA) Urine Ketones Urine Blood Urine Nitrite Urine Bilirubin Urine Urobilinogen Ur Leukocyte Esterase U Random Total Protein Urine Creatinine Protein/Creatinin Ratio Home Medications Medication Instructions Recorded Celecoxib [CeleBREX -] 200 mg PO DAILY 03/11/13 Clopidogrel Bisulfate [Plavix -] 75 mg PO DAILY 03/11/13 Isosorbide Mononitrate [Imdur] 120 mg PO DAILY 03/11/13 Metoprolol Succinate [Toprol XL -] 50 mg PO BID 03/11/13 metFORMIN HCL [Glucophage -] 500 mg PO BID 03/11/13 Apixaban [Eliquis] 5 mg PO BID 03/19/18 Nortriptyline HCl [Pamelor -] 25 mg PO HS 03/19/18 Amiodarone HCl [Cordarone -] 100 mg PO DAILY 04/28/18 Atorvastatin Ca [Lipitor] 20 mg PO DAILY 04/28/18 Cholecalciferol (Vitamin D3) 1,000 unit PO DAILY 04/28/18 [Vitamin D3] Melatonin 3 mg PO HS 04/28/18 Niacin 500 mg PO DAILY 04/28/18 Ranolazine [Ranexa] 500 mg PO BID 12/22/19 Zolpidem Tartrate [Ambien] 10 mg PO HS 12/22/19 A/P: 74 M h/o CAD s/p recent stent placement, iliac stent, Afib on AC/Amiodarone, HTN , Diabetes, presents after syncopal event. Syncope with closed head trauma ?due to cardiac arrythmia in setting of low EF, patient will need ICD Cont. tele monitoring, follow orthostatics, Pain control w/ Tylenol Cardiology consult: Dr Díaz Neurology: Dr. Valente CAD S/p recent stent placement Cardiology recommended restart Plavix, Statin, AC Cont. Imdur Iliac stent Cont. statin, Ranexa T2Dm ISS, supplement basal coverage as needed cont. Nortriptyline for neuropathy HTn Cont. BP meds, monitor lytes Afib cont. Amiodarone at 100mg daily restart AC as per Cardiology recommendation Insomnia cont. Melatonin, Ambien DVT ppx: Eliquis FEN: PO hydration, daily chem, Na restricted diet tele-monitoring Visit type - Emergency Visit Emergency Visit: Yes ED Registration Date: 12/22/19 Care time: The patient presented to the Emergency Department on the above date and was hospitalized for further evaluation of their emergent condition. - New Patient This patient is new to me today: Yes Date on this admission: 12/24/19 - Critical Care Critical Care patient: No - Discharge Referral Referred to [facility] Med P.C.: No
[2019-12-24] MEDS: AMIODARONE HCL 200 MG TABLET PO SCH (14:36)
--- NOTE | 2019-12-24 15:53 | PN ---
Progress Note, Physician History of Present Illness: Pt seen and examined at bedside. He is awake and alert. He denies shortness of breath. He denies dysuria. - Current Medication List Current Medications: Active Medications Acetaminophen (Tylenol -) 650 mg PO Q6H PRN PRN Reason: PAIN LEVEL 4 - 6 Last Admin: 12/23/19 16:19 Dose: 650 mg Amiodarone HCl (Cordarone -) 100 mg PO DAILY [facility] Last Admin: 12/24/19 14:36 Dose: 100 mg Apixaban (Eliquis -) 5 mg PO BID [facility] Last Admin: 12/24/19 11:51 Dose: 5 mg Atorvastatin Calcium (Lipitor -) 20 mg PO [facility] Last Admin: 12/23/19 23:11 Dose: 20 mg Clopidogrel Bisulfate (Plavix -) 75 mg PO DAILY [facility] Hydralazine HCl (Apresoline -) 25 mg PO BID [facility] Last Admin: 12/24/19 11:51 Dose: 25 mg Insulin Aspart (Novolog Vial) 1 units SQ [facility]; Protocol Last Admin: 12/24/19 12:25 Dose: Not Given Isosorbide Mononitrate (Imdur -) 120 mg PO DAILY [facility] Last Admin: 12/24/19 10:15 Dose: 120 mg Metoprolol Succinate (Toprol Xl -) 50 mg PO BID [facility] Last Admin: 12/24/19 10:15 Dose: 50 mg Niacin (Niacin) 500 mg PO DAILY [facility] Last Admin: 12/24/19 11:52 Dose: 500 mg Ranolazine (Ranexa -) 500 mg PO BID [facility] Last Admin: 12/24/19 10:15 Dose: 500 mg Tamsulosin HCl (Flomax -) 0.4 mg PO DAILY@0830 [facility] - Objective Vital Signs: Vital Signs Temperature 97.9 F 12/24/19 14:20 Pulse Rate 49 L 12/24/19 14:20 Respiratory Rate 18 12/24/19 14:20 Blood Pressure 132/79 12/24/19 14:20 O2 Sat by Pulse Oximetry (%) 98 12/24/19 09:00 Constitutional: Yes: Calm Eyes: Yes: Conjunctiva Clear Neck: Yes: Supple Cardiovascular: Yes: S1, S2 Respiratory: Yes: CTA Bilaterally Gastrointestinal: Yes: Soft Genitourinary: Yes: WNL Musculoskeletal: Yes: WNL Integumentary: Yes: WNL Neurological: Yes: Oriented Psychiatric: Yes: Oriented Labs: CBC, BMP 12/24/19 06:15 12/24/19 06:15 INR, PTT INR 1.89 (0.83-1.09) H 12/22/19 14:12 Problem List - Problems (1) CKD (chronic kidney disease) Code(s): N18.9 - CHRONIC KIDNEY DISEASE, UNSPECIFIED Qualifiers: Chronic kidney disease stage: stage 3 (moderate) Qualified Code(s): N18.3 - Chronic kidney disease, stage 3 (moderate) (2) Syncope Code(s): R55 - SYNCOPE AND COLLAPSE Qualifiers: Syncope type: unspecified Qualified Code(s): R55 - Syncope and collapse (3) Atrial fibrillation Code(s): I48.91 - UNSPECIFIED ATRIAL FIBRILLATION (4) CAD in [place] artery Code(s): I25.10 - ATHSCL HEART DISEASE OF [place] CORONARY ARTERY W/O ANG PCTRS Assessment/Plan Current Medications Generic Name Dose Route Start Last Admin Trade Name Freq PRN Reason Stop Dose Admin Acetaminophen 650 mg 12/23/19 15:59 12/23/19 16:19 Tylenol - PO 650 mg Q6H PRN Administration PAIN LEVEL 4 - 6 Amiodarone HCl 100 mg 12/24/19 10:00 12/24/19 14:36 Cordarone - PO 100 mg DAILY NATI Administration Apixaban 5 mg 12/24/19 10:00 12/24/19 11:51 Eliquis - PO 5 mg BID NATI Administration Atorvastatin Calcium 20 mg 12/23/19 22:00 12/23/19 23:11 Lipitor - PO 20 mg HS NATI Administration Clopidogrel Bisulfate 75 mg 12/25/19 10:00 Plavix - PO DAILY NATI Hydralazine HCl 25 mg 12/23/19 22:00 12/24/19 11:51 Apresoline - PO 25 mg BID NATI Administration Insulin Aspart 1 units 12/23/19 07:00 12/24/19 12:25 Novolog Vial SQ Not Given ACHS [facility]I Protocol Isosorbide Mononitrate 120 mg 12/23/19 10:00 12/24/19 10:15 Imdur - PO 120 mg DAILY NATI Administration Metoprolol Succinate 50 mg 12/23/19 10:00 12/24/19 10:15 Toprol Xl - PO 50 mg BID NATI Administration Niacin 500 mg 12/23/19 10:00 12/24/19 11:52 Niacin PO 500 mg DAILY NATI Administration Ranolazine 500 mg 12/23/19 10:00 12/24/19 10:15 Ranexa - PO 500 mg BID NATI Administration Tamsulosin HCl 0.4 mg 12/25/19 08:30 Flomax - PO DAILY@0830 NATI Impression 1. CKD 2. hyperkalemia 3. cad 4. pvd 5. syncope 6. a-fib Plan - renal function improved - can see in office for more extensive renal workup - start flomax for elevated pvr, discussed with with cardio - avoid nsaids - consider urology eval, can be done as outpt - will follow prn
--- NOTE | 2019-12-24 20:13 | CONSULT ---
Consult Consult Specialty:: UROLOGY Reason for Consultation:: BPH - History of Present Illness Chief Complaint: 74 Y/O Male patient with history of HT, DM,CAD, A FIB and CABG , c/o weak urine stream, nocturia 2, frequency 4, hesitency and incomplete emptying. no dysuria or hematuria. O/E soft lax abd no organomegally. small benign prostste. Genitalia WNL. U/S left renal stone 7mm left renal cyst. high residual volume. - Past Medical History Cardio/Vascular: Yes: AFIB (s/p DCCV, pt now on eliquis), CAD, HTN, Hyperlipdemia, RI Gastrointestinal: Yes: GERD, Other (dysphagia) Renal/: Yes: Renal Inusuff. 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 History of Recent Travel: No Home Medications - Allergies Allergies/Adverse Reactions: Allergies Allergy/AdvReac Type Severity Reaction Status Date / Time Penicillins Allergy Severe Verified 12/22/19 13:46 - Home Medications Home Medications: Ambulatory Orders Celecoxib [CeleBREX -] 200 mg PO DAILY 03/11/13 Clopidogrel Bisulfate [Plavix -] 75 mg PO DAILY 03/11/13 Isosorbide Mononitrate [Imdur] 120 mg PO DAILY 03/11/13 Metoprolol Succinate [Toprol XL -] 50 mg PO BID 03/11/13 metFORMIN HCL [Glucophage -] 500 mg PO BID 03/11/13 Apixaban [Eliquis] 5 mg PO BID 03/19/18 Nortriptyline HCl [Pamelor -] 25 mg PO HS 03/19/18 Amiodarone HCl [Cordarone -] 100 mg PO DAILY 04/28/18 Atorvastatin Ca [Lipitor] 20 mg PO DAILY 04/28/18 Cholecalciferol (Vitamin D3) [Vitamin D3] 1,000 unit PO DAILY 04/28/18 Melatonin 3 mg PO HS 04/28/18 Niacin 500 mg PO DAILY 04/28/18 Ranolazine [Ranexa] 500 mg PO BID 12/22/19 Zolpidem Tartrate [Ambien] 10 mg PO HS 12/22/19 Physical Exam Vital Signs: Vital Signs Temperature 97.9 F 12/24/19 14:20 Pulse Rate 49 L 12/24/19 14:20 Respiratory Rate 18 12/24/19 14:20 Blood Pressure 132/79 12/24/19 14:20 O2 Sat by Pulse Oximetry (%) 98 12/24/19 09:00 Labs: CBC, BMP 12/24/19 06:15 12/24/19 06:15 Assessment/Plan BPH and High residual volume Left renal stone Left renal cyst Plan: Flomax 0.4 mg will do UDS, cystoscopy and ESWL as outpatient.
[2019-12-24] MEDS: ATORVASTATIN CA 20 MG TABLET (FP) PO SCH (21:20)
[2019-12-24] MEDS: TAMSULOSIN HCL 0.4 MG CAP PO SCH (21:20)
--- NOTE | 2019-12-24 22:46 | PN ---
Progress Note (short form) - Note Progress Note: Called on multiple nights for Ambien to assist in sleep. PRN order placed.
[2019-12-24] MEDS: ZOLPIDEM TARTRATE 5 MG TABLET PO PRN (23:03)
[2019-12-24] MEDS: ACETAMINOPHEN 325 MG TABLET (FP) PO PRN (23:03)
[2019-12-25] MEDS: INSULIN (NOVOLOG) ASPART 100 UNITS/ML 10ML VIAL SQ SCH ×4 (06:17→22:18)
[2019-12-25 08:07] LABS: EOS % 6.4 % (0-4.5); HEMATOCRIT 30.6 % (35.4-49); HEMOGLOBIN 10.4 GM/dL (11.7-16.9); LYMPH % 14.4 % (8-40); MCH 32.5 pg (25.7-33.7); MCHC 34.1 g/dl (32.0-35.9); MEAN CELL VOLUME 95.4 fl (80-96); MEAN PLT VOLUME 7.8 fl (7.5-11.1); MONO % 10.9 % (3.8-10.2); NEUT % 67.3 % (42.8-82.8); PLATELET COUNT 234 K/MM3 (134-434); RDW 15.5 % (11.9-15.9)
[2019-12-25] MEDS ORDERED: TAMSULOSIN HCL 0.4 MG CAP PO SCH (08:30)
[2019-12-25 08:35] LABS: BLOOD UREA NITROGEN 24.9 mg/dL (7-18); CALCIUM 8.6 mg/dL (8.5-10.1); CREATININE 1.8 mg/dL (0.55-1.3); MAGNESIUM 1.7 mg/dL (1.8-2.4); POTASSIUM 4.6 mmol/L (3.5-5.1)
[2019-12-25] MEDS ORDERED: PT OWN MED DRAWER 7, Y5N ONE (09:16)
--- NOTE | 2019-12-25 09:55 | PN ---
Progress Note, Physician History of Present Illness: Patient is a 74 year old man with a PMH of NIDDM, HTN, CAD s/p CABG (atretic GOYAL->LAD, RA->OM, SVG->RCA), s/p complex SAMIRA dLM, ostial LAD to mid LAD, Kidney stones, paroxysmal Afib s/p cardioversion x2 on eliquis, CEA x2, Penicillin allergy and right Iliac stenting presenting after witnessed syncope and head trauma. Patient reports he woke feeling unwell without any specific complaints; proceeded to his PCP. After leaving went to [employer] and fell face forward and hit head. Denies any prodromal symptoms including headache, lightheadedness, dizziness, chest pain, SOB, abdominal pain, nausea, vomiting, diaphoresis, leg pain, palpitations, weakness, hematuria, dysuria or back pain. Currently feels pain in both wrists because he thinks he braced his fall. Patient ambulatory at the scene with assist. Reports that he had three episodes of syncope 5 years ago. Denies alcohol, tobacco or illicit drug use. No sick contacts or recent travels. Most recent echo post SAMIRA shows severely decreased LVEF 25-30%, mod LAE, mild-mod MR, TR, tr [place] and trace pericardial effusion. Last saw Dr. Alvarez 11/26/2019. - Current Medication List Current Medications: Active Medications Acetaminophen (Tylenol -) 650 mg PO Q6H PRN PRN Reason: PAIN LEVEL 4 - 6 Last Admin: 12/24/19 23:03 Dose: 650 mg Amiodarone HCl (Cordarone -) 100 mg PO DAILY [facility] Last Admin: 12/24/19 14:36 Dose: 100 mg Apixaban (Eliquis -) 5 mg PO BID [facility] Last Admin: 12/24/19 21:20 Dose: 5 mg Atorvastatin Calcium (Lipitor -) 20 mg PO HS [facility] Last Admin: 12/24/19 21:20 Dose: 20 mg Clopidogrel Bisulfate (Plavix -) 75 mg PO DAILY [facility] Hydralazine HCl (Apresoline -) 25 mg PO BID [facility] Last Admin: 12/24/19 21:20 Dose: 25 mg Insulin Aspart (Novolog Vial) 1 units SQ [facility]; Protocol Last Admin: 12/25/19 06:17 Dose: Not Given Isosorbide Mononitrate (Imdur -) 120 mg PO DAILY [facility] Last Admin: 12/24/19 10:15 Dose: 120 mg Metoprolol Succinate (Toprol Xl -) 50 mg PO BID [facility] Last Admin: 12/24/19 21:21 Dose: 50 mg Niacin (Niacin) 500 mg PO DAILY [facility] Last Admin: 12/24/19 11:52 Dose: 500 mg Ranolazine (Ranexa -) 500 mg PO BID [facility] Last Admin: 12/24/19 21:20 Dose: 500 mg Tamsulosin HCl (Flomax -) 0.4 mg PO DAILY@2200 [facility] Last Admin: 12/24/19 21:20 Dose: 0.4 mg Zolpidem Tartrate (Ambien -) 5 mg PO HS PRN PRN Reason: INSOMNIA Last Admin: 12/24/19 23:03 Dose: 5 mg - Objective Vital Signs: Vital Signs Temperature 98.1 F 12/25/19 06:00 Pulse Rate 51 L 12/25/19 06:00 Respiratory Rate 18 12/25/19 08:36 Blood Pressure 120/68 12/25/19 06:00 O2 Sat by Pulse Oximetry (%) 99 12/25/19 08:36 Eyes: Yes: WNL, Conjunctiva Clear, EOM Intact, Other (periorbital eccymosis) HENT: Yes: WNL, Atraumatic, Normocephalic Neck: Yes: WNL, Supple, Trachea Midline Cardiovascular: Yes: WNL, Regular Rate and Rhythm Respiratory: Yes: WNL, Regular, CTA Bilaterally Gastrointestinal: Yes: WNL, Normal Bowel Sounds Genitourinary: Yes: WNL Musculoskeletal: Yes: WNL Extremities: Yes: WNL Edema: No Integumentary: Yes: WNL Neurological: Yes: WNL, Alert, Oriented ...Motor Strength: WNL Psychiatric: Yes: WNL Labs: CBC, BMP 12/25/19 06:50 12/25/19 06:50 INR, PTT INR 1.89 (0.83-1.09) H 12/22/19 14:12 Assessment/Plan - Problems (1) Demand ischemia Code(s): I24.8 - OTHER FORMS OF ACUTE ISCHEMIC HEART DISEASE (2) CKD (chronic kidney disease) Code(s): N18.9 - CHRONIC KIDNEY DISEASE, UNSPECIFIED Qualifiers: Chronic kidney disease stage: stage 3 (moderate) Qualified Code(s): N18.3 - Chronic kidney disease, stage 3 (moderate) (3) Elevated troponin Code(s): R79.89 - OTHER SPECIFIED ABNORMAL FINDINGS OF BLOOD CHEMISTRY (4) Hyperkalemia Code(s): E87.5 - HYPERKALEMIA (5) S/P insertion of iliac artery stent Code(s): Z95.828 - PRESENCE OF OTHER VASCULAR IMPLANTS AND GRAFTS (6) Syncope Code(s): R55 - SYNCOPE AND COLLAPSE Qualifiers: Syncope type: unspecified Qualified Code(s): R55 - Syncope and collapse (7) Atrial fibrillation Code(s): I48.91 - UNSPECIFIED ATRIAL FIBRILLATION (8) CAD in [place] artery Code(s): I25.10 - ATHSCL HEART DISEASE OF [place] CORONARY ARTERY W/O ANG PCTRS (9) DM type 2 (diabetes mellitus, type 2) Code(s): E11.9 - TYPE 2 DIABETES MELLITUS WITHOUT COMPLICATIONS Qualifiers: Diabetes mellitus marine oil terminal superintendent insulin use: without marine oil terminal superintendent use (10) HLD (hyperlipidemia) Code(s): E78.5 - HYPERLIPIDEMIA, UNSPECIFIED Qualifiers: Hyperlipidemia type: pure hypercholesterolemia Qualified Code(s): E78.00 - Pure hypercholesterolemia, unspecified; E78.0 - Pure hypercholesterolemia (11) S/P CABG (coronary artery bypass graft) Code(s): Z95.1 - PRESENCE OF AORTOCORONARY BYPASS GRAFT (12) S/P coronary artery stent placement Code(s): Z95.5 - PRESENCE OF CORONARY ANGIOPLASTY IMPLANT AND GRAFT (13) Ischemic cardiomyopathy Code(s): I25.5 - ISCHEMIC CARDIOMYOPATHY Assessment/Plan 12/23/2019 Echo: Normal LV size with severely decreased LV fxn 30-35%, normal RV size and fxn, mild MR, TR, severe pulm HTN, tr [place] 11/12/2019 Echo: Normal LV size with severely decreased LVEF 25-30% with anteroseptum, anterior, apex AK and rest variable HK, mod LAE, normal RV size and fxn, mild-mod MR, TR, tr [place], pericardial effusion 12/23/2019 Renal US: Mild atrophic kidney with no hydro, probable left hydro, large PVR 1. Syncope with closed head trauma 2. CAD s/p CABG, complex stent dLM->mid LAD, demand ischemia 3. Severe LV systolic dysfunction w/o evidence of LV failure 4. Hypertension 5. Hyperlipidemia 6. Type 2 DM 7. Carotid stenosis s/p right CEA and stent 8. CKD with Hyperkalemia 9. Anemia of CKD 10. Paroxysmal afib on Eliquis P:1. Since LVEF remains depressed, may require ICD for primary prophylaxis, arrangements being made for Lifevest fitting in meantime 2. Trend trops to document peak 3. Continue amio 100 qd, Ranexa 500 bid, Toprol XL 50 bid, Imdur 120 qd, Eliquis 5 bid, Plavix 75 qd, Lipitor 20 qd, eventual ARB or Entresto as renal fxn and hyperkalemia stabilizes (given lokelma), added hydralazine [address] Díaz
[2019-12-25] MEDS: CLOPIDOGREL BISULFATE 75 MG TABLET (FP) PO SCH (10:03)
[2019-12-25] MEDS: AMIODARONE HCL 200 MG TABLET PO SCH (10:03)
[2019-12-25] MEDS: hydrALAZINE HCL 25 MG TABLET (FP) PO SCH ×2 (10:03→22:19)
[2019-12-25] MEDS: APIXABAN 5 MG TABLET PO SCH ×2 (10:03→22:19)
[2019-12-25] MEDS: RANOLAZINE E.R. 500 MG TABLET (FP) PO SCH ×2 (10:04→22:23)
[2019-12-25] MEDS: ISOSORBIDE MONONITRATE 60 MG TAB.SR.24H (FP) PO SCH (10:04)
[2019-12-25] MEDS: NIACIN 500 MG TABLET PO SCH (10:05)
--- NOTE | 2019-12-25 15:38 | EKG ---
Test Reason : Blood Pressure : / mmHG Vent. Rate : 052 BPM Atrial Rate : 052 BPM P-R Int : 186 ms QRS Dur : 100 ms QT Int : 486 ms P-R-T Axes : 090 -51 098 degrees QTc Int : 451 ms SINUS BRADYCARDIA LEFT AXIS DEVIATION PULMONARY DISEASE PATTERN NONSPECIFIC ST AND T WAVE ABNORMALITY ABNORMAL ECG Confirmed by MD TORIE, LUCAS ([id number]) on 12/25/2019 3:37:50 PM Referred By: Too SHAIKH Confirmed By:LUCAS VOGT MD
--- NOTE | 2019-12-25 18:03 | PN ---
Physical Exam: 74 M h/o DM2, HTN, CAD (s/p stent placement 1 month ago), AFib (Eliquis and Amiodarone), and R iliac stent. He presented to the ER after a syncopal episode. Patient evaluated by Cardiology who recommends fitting for an ICD vest prior to discharge, arrangement made, awaiting company to come and fit him prior to DC, otherwise patient denies complaints, no witnessed syncopal episodes , VSS. PE VSS GA comfortable, AAox3, sitting up in bed, NAD HEENT raccoon eyes+, negative nguyễn sign, neck supple, dry MM, no cervcial spine tenderness Chest CTAB, bibasilar crackles present CVS S1, S2+, RRR Abd Soft, NT, ND, BS+ Ext No LE edema Vital Signs - 24 hr 12/24/19 12/24/19 12/25/19 21:00 22:00 02:00 Temperature 98.1 F 97.9 F Pulse Rate 52 L 47 L Respiratory 18 18 18 Rate Blood Pressure 132/86 102/73 O2 Sat by Pulse 98 Oximetry (%) 12/25/19 12/25/19 12/25/19 06:00 08:36 10:00 Temperature 98.1 F Pulse Rate 51 L 53 L Respiratory 18 18 20 Rate Blood Pressure 120/68 128/79 O2 Sat by Pulse 99 Oximetry (%) 12/25/19 14:25 Temperature 98.4 F Pulse Rate 52 L Respiratory 18 Rate Blood Pressure 137/84 O2 Sat by Pulse Oximetry (%) Microbiology 12/22/19 19:00 Urine - Urine Clean Catch Urine Culture - Final Group D Strep Or Entero Coccus Laboratory Results - last 24 hr 12/24/19 12/24/19 12/25/19 20:13 21:23 06:16 WBC RBC Hgb Hct MCV MCH MCHC RDW Plt Count MPV Absolute Neuts (auto) Neutrophils % Lymphocytes % Monocytes % Eosinophils % Basophils % Nucleated RBC % Sodium Potassium Chloride Carbon Dioxide Anion Gap BUN Creatinine Est GFR (CKD-EPI)AfAm Est GFR (CKD-EPI)NonAf POC Glucometer 126 91 Random Glucose Calcium Magnesium Troponin I 0.42 H 12/25/19 12/25/19 12/25/19 06:50 06:50 12:04 WBC 7.0 RBC 3.20 L Hgb 10.4 L Hct 30.6 L MCV 95.4 MCH 32.5 MCHC 34.1 RDW 15.5 Plt Count 234 MPV 7.8 Absolute Neuts (auto) 4.7 Neutrophils % 67.3 Lymphocytes % 14.4 Monocytes % 10.9 H Eosinophils % 6.4 H Basophils % 1.0 Nucleated RBC % 0 Sodium 137 Potassium 4.6 Chloride 108 H Carbon Dioxide 22 Anion Gap 8 BUN 24.9 H Creatinine 1.8 H Est GFR (CKD-EPI)AfAm 42.63 Est GFR (CKD-EPI)NonAf 36.78 POC Glucometer 105 Random Glucose 87 Calcium 8.6 Magnesium 1.7 L Troponin I 12/25/19 16:50 WBC RBC Hgb Hct MCV MCH MCHC RDW Plt Count MPV Absolute Neuts (auto) Neutrophils % Lymphocytes % Monocytes % Eosinophils % Basophils % Nucleated RBC % Sodium Potassium Chloride Carbon Dioxide Anion Gap BUN Creatinine Est GFR (CKD-EPI)AfAm Est GFR (CKD-EPI)NonAf POC Glucometer 104 Random Glucose Calcium Magnesium Troponin I Current Medications Generic Name Dose Route Start Last Admin Trade Name Freq PRN Reason Stop Dose Admin Acetaminophen 650 mg 12/23/19 15:59 12/24/19 23:03 Tylenol - PO 650 mg Q6H PRN Administration PAIN LEVEL 4 - 6 Amiodarone HCl 100 mg 12/24/19 10:00 12/25/19 10:03 Cordarone - PO 100 mg DAILY NATI Administration Apixaban 5 mg 12/24/19 10:00 12/25/19 10:03 Eliquis - PO 5 mg BID NATI Administration Atorvastatin Calcium 20 mg 12/23/19 22:00 12/24/19 21:20 Lipitor - PO 20 mg HS NATI Administration Clopidogrel Bisulfate 75 mg 12/25/19 10:00 12/25/19 10:03 Plavix - PO 75 mg DAILY NATI Administration Hydralazine HCl 25 mg 12/23/19 22:00 12/25/19 10:03 Apresoline - PO 25 mg BID NATI Administration Insulin Aspart 1 units 12/23/19 07:00 12/25/19 17:41 Novolog Vial SQ Not Given ACHS NATI Protocol Isosorbide Mononitrate 120 mg 12/23/19 10:00 12/25/19 10:04 Imdur - PO 120 mg DAILY [facility]I Administration Metoprolol Succinate 50 mg 12/23/19 10:00 12/25/19 10:06 Toprol Xl - PO Not Given BID NATI Niacin 500 mg 12/23/19 10:00 12/25/19 10:05 Niacin PO 500 mg DAILY [facility]I Administration Ranolazine 500 mg 12/23/19 10:00 12/25/19 10:04 Ranexa - PO 500 mg BID [facility] Administration Tamsulosin HCl 0.4 mg 12/24/19 22:00 12/24/19 21:20 Flomax - PO 0.4 mg DAILY@2200 [facility] Administration Zolpidem Tartrate 5 mg 12/24/19 22:45 12/24/19 23:03 Ambien - PO 5 mg HS PRN Administration INSOMNIA A/P: 74 M h/o CAD s/p recent stent placement, iliac stent, Afib on AC/Amiodarone, HTN , Diabetes, presents after syncopal event. Syncope with closed head trauma ?due to cardiac arrythmia in setting of low EF, patient will need ICD vest prior to DC, arrangement made w/ Cardiology Cont. tele monitoring, Pain control w/ Tylenol Cardiology consult: Dr Díaz Neurology: Dr. Valente recommending outpatient clinic follow up CAD S/p recent stent placement Cardiology recommended restart Plavix, Statin, AC Cont. Imdur ICD vest fitting prior to DC Iliac stent Cont. statin, Ranexa T2Dm ISS, supplement basal coverage as needed cont. Nortriptyline for neuropathy HTn Cont. BP meds, monitor lytes Afib cont. Amiodarone at 100mg daily restart AC as per Cardiology recommendation Insomnia cont. Melatonin, Ambien DVT ppx: Eliquis FEN: PO hydration, daily chem, Na restricted diet tele-monitoring Visit type - Emergency Visit Emergency Visit: Yes ED Registration Date: 12/22/19 Care time: The patient presented to the Emergency Department on the above date and was hospitalized for further evaluation of their emergent condition. - New Patient This patient is new to me today: No - Critical Care Critical Care patient: No - Discharge Referral Referred to [facility] Med P.C.: No
[2019-12-25] MEDS: ACETAMINOPHEN 325 MG TABLET (FP) PO PRN (22:19)
[2019-12-25] MEDS: ATORVASTATIN CA 20 MG TABLET (FP) PO SCH (22:19)
[2019-12-25] MEDS: TAMSULOSIN HCL 0.4 MG CAP PO SCH (22:19)
[2019-12-25] MEDS: ZOLPIDEM TARTRATE 5 MG TABLET PO PRN (22:19)
[2019-12-26] MEDS: INSULIN (NOVOLOG) ASPART 100 UNITS/ML 10ML VIAL SQ SCH ×4 (06:30→21:26)
--- NOTE | 2019-12-26 06:57 | HOSP ---
Physical Examination Vital Signs: Vital Signs Temperature 97.6 F 12/26/19 02:12 Pulse Rate 54 L 12/26/19 02:12 Respiratory Rate 18 12/26/19 02:12 Blood Pressure 117/68 12/26/19 02:12 O2 Sat by Pulse Oximetry (%) 98 12/25/19 21:00 Labs: CBC, BMP 12/25/19 06:50 12/25/19 06:50 Hospitalist Encounter Assessment: Was called to see pt because he hit his head while in the bathroom. Pt reportedly was in the bathroom. Nurse was right outside. Pt got "shaky" and hit his head on the door. Now has mild headache. Pt and nurse both state he did not fall. He is on eliquis and plavix. On further questioning, pt states that he now realizes he has forgotten to mention in any of his interviews with physicians that he has been having similar episodes 1-2 times monthly for several years. He states that in these episodes, he will suddenly and uncontrollably start shaking. He states his whole body shakes and it does not start in any particular part of the body. He does not lose consciousness and does not necessarily fall. He has never seen a doctor about this. However, he does see a neurologist in [place] and has had EEG done for muscle cramping and possibly for restless leg syndrome. Also states that his asp net c developer wants to give him a life vest and assess for need for ICD in the future. Gen: AAOx3, NAD HEENT: ecchymoses b/l under eye and overlying glabella (from prior fall). No contusion on R forehead where he struck the door this morning Neck: supple, no bruits Cardio: rrr, normal s1s2, no mrg Pulm: cta b/l Abd: soft nontender Ext: no edema, no swelling Neuro: CN2-12 intact, strength 5/5 sensation intact reflexes intact throughout. A/P Head CT Visit type - Emergency Visit Emergency Visit: No - New Patient This patient is new to me today: Yes Date on this admission: 12/26/19 - Critical Care Critical Care patient: No
--- NOTE | 2019-12-26 09:58 | PN ---
Progress Note, Physician History of Present Illness: Patient is a 74 year old man with a PMH of NIDDM, HTN, CAD s/p CABG (atretic GOYAL->LAD, RA->OM, SVG->RCA), s/p complex SAMIRA dLM, ostial LAD to mid LAD, Kidney stones, paroxysmal Afib s/p cardioversion x2 on eliquis, CEA x2, Penicillin allergy and right Iliac stenting presenting after witnessed syncope and head trauma. Patient reports he woke feeling unwell without any specific complaints; proceeded to his PCP. After leaving went [place] [employer] and fell face forward and hit head. Denies any prodromal symptoms including headache, lightheadedness, dizziness, chest pain, SOB, abdominal pain, nausea, vomiting, diaphoresis, leg pain, palpitations, weakness, hematuria, dysuria or back pain. Currently feels pain in both wrists because he thinks he braced his fall. Patient ambulatory at the scene with assist. Reports that he had three episodes of syncope 5 years ago. Denies alcohol, tobacco or illicit drug use. No sick contacts or recent travels. Most recent echo post SAMIRA shows severely decreased LVEF 25-30%, mod LAE, mild-mod MR, TR, tr RI and trace pericardial effusion. Last saw Dr. Alvarez 11/26/2019. - Current Medication List Current Medications: Active Medications Acetaminophen (Tylenol -) 650 mg PO Q6H PRN PRN Reason: PAIN LEVEL 4 - 6 Last Admin: 12/25/19 22:19 Dose: 650 mg Amiodarone HCl (Cordarone -) 100 mg PO DAILY [facility] Last Admin: 12/25/19 10:03 Dose: 100 mg Apixaban (Eliquis -) 5 mg PO BID [facility] Last Admin: 12/25/19 22:19 Dose: 5 mg Atorvastatin Calcium (Lipitor -) 20 mg PO HS [facility] Last Admin: 12/25/19 22:19 Dose: 20 mg Clopidogrel Bisulfate (Plavix -) 75 mg PO DAILY [facility] Last Admin: 12/25/19 10:03 Dose: 75 mg Hydralazine HCl (Apresoline -) 25 mg PO BID [facility] Last Admin: 12/25/19 22:19 Dose: 25 mg Insulin Aspart (Novolog Vial) 1 units SQ [facility]; Protocol Last Admin: 12/26/19 06:30 Dose: Not Given Isosorbide Mononitrate (Imdur -) 120 mg PO DAILY [facility] Last Admin: 12/25/19 10:04 Dose: 120 mg Metoprolol Succinate (Toprol Xl -) 50 mg PO BID [facility] Last Admin: 12/25/19 22:19 Dose: 50 mg Niacin (Niacin) 500 mg PO DAILY [facility] Last Admin: 12/25/19 10:05 Dose: 500 mg Ranolazine (Ranexa -) 500 mg PO BID [facility] Last Admin: 12/25/19 22:23 Dose: 500 mg Tamsulosin HCl (Flomax -) 0.4 mg PO DAILY@2200 [facility] Last Admin: 12/25/19 22:19 Dose: 0.4 mg Zolpidem Tartrate (Ambien -) 5 mg PO HS PRN PRN Reason: INSOMNIA Last Admin: 12/25/19 22:19 Dose: 5 mg - Objective Vital Signs: Vital Signs Temperature 99 F 12/26/19 06:00 Pulse Rate 51 L 12/26/19 06:00 Respiratory Rate 18 12/26/19 06:00 Blood Pressure 116/76 12/26/19 06:00 O2 Sat by Pulse Oximetry (%) 98 12/25/19 21:00 Eyes: Yes: Other (periorbital eccymosis) HENT: Yes: WNL, Atraumatic, Normocephalic Neck: Yes: WNL, Supple, Trachea Midline Cardiovascular: Yes: WNL, Regular Rate and Rhythm Respiratory: Yes: WNL, Regular, CTA Bilaterally Gastrointestinal: Yes: WNL, Normal Bowel Sounds Genitourinary: Yes: WNL Musculoskeletal: Yes: WNL Extremities: Yes: WNL Edema: No Integumentary: Yes: WNL Neurological: Yes: WNL, Alert, Oriented ...Motor Strength: WNL Psychiatric: Yes: WNL Labs: CBC, BMP 12/25/19 06:50 12/25/19 06:50 INR, PTT INR 1.89 (0.83-1.09) H 12/22/19 14:12 Assessment/Plan - Problems (1) Demand ischemia Code(s): I24.8 - OTHER FORMS OF ACUTE ISCHEMIC HEART DISEASE (2) CKD (chronic kidney disease) Code(s): N18.9 - CHRONIC KIDNEY DISEASE, UNSPECIFIED Qualifiers: Chronic kidney disease stage: stage 3 (moderate) Qualified Code(s): N18.3 - Chronic kidney disease, stage 3 (moderate) (3) Elevated troponin Code(s): R79.89 - OTHER SPECIFIED ABNORMAL FINDINGS OF BLOOD CHEMISTRY (4) Hyperkalemia Code(s): E87.5 - HYPERKALEMIA (5) S/P insertion of iliac artery stent Code(s): Z95.828 - PRESENCE OF OTHER VASCULAR IMPLANTS AND GRAFTS (6) Syncope Code(s): R55 - SYNCOPE AND COLLAPSE Qualifiers: Syncope type: unspecified Qualified Code(s): R55 - Syncope and collapse (7) Atrial fibrillation Code(s): I48.91 - UNSPECIFIED ATRIAL FIBRILLATION (8) CAD in [place] artery Code(s): I25.10 - ATHSCL HEART DISEASE OF [place] CORONARY ARTERY W/O ANG PCTRS (9) DM type 2 (diabetes mellitus, type 2) Code(s): E11.9 - TYPE 2 DIABETES MELLITUS WITHOUT COMPLICATIONS Qualifiers: Diabetes mellitus usp insulin use: without usp use (10) HLD (hyperlipidemia) Code(s): E78.5 - HYPERLIPIDEMIA, UNSPECIFIED Qualifiers: Hyperlipidemia type: pure hypercholesterolemia Qualified Code(s): E78.00 - Pure hypercholesterolemia, unspecified; E78.0 - Pure hypercholesterolemia (11) S/P CABG (coronary artery bypass graft) Code(s): Z95.1 - PRESENCE OF AORTOCORONARY BYPASS GRAFT (12) S/P coronary artery stent placement Code(s): Z95.5 - PRESENCE OF CORONARY ANGIOPLASTY IMPLANT AND GRAFT (13) Ischemic cardiomyopathy Code(s): I25.5 - ISCHEMIC CARDIOMYOPATHY Assessment/Plan 12/23/2019 Echo: Normal LV size with severely decreased LV fxn 30-35%, normal RV size and fxn, mild MR, TR, severe pulm HTN, tr [place] 11/12/2019 Echo: Normal LV size with severely decreased LVEF 25-30% with anteroseptum, anterior, apex AK and rest variable HK, mod LAE, normal RV size and fxn, mild-mod MR, TR, tr [place], pericardial effusion 12/23/2019 Renal US: Mild atrophic kidney with no hydro, probable left hydro, large PVR 1. Syncope with closed head trauma 2. CAD s/p CABG, complex stent dLM->mid LAD, demand ischemia 3. Severe LV systolic dysfunction w/o evidence of LV failure 4. Hypertension 5. Hyperlipidemia 6. Type 2 DM 7. Carotid stenosis s/p right CEA and stent 8. CKD with Hyperkalemia 9. Anemia of CKD 10. Paroxysmal afib on Eliquis P:1. Since LVEF remains depressed, may require ICD for primary prophylaxis, arrangements being made for Lifevest fitting in meantime 2. Trend trops to document peak 3. Continue amio 100 qd, Ranexa 500 bid, Toprol XL 50 bid, Imdur 120 qd, Eliquis 5 bid, Plavix 75 qd, Lipitor 20 qd, eventual ARB or Entresto as renal fxn and hyperkalemia stabilizes (given lokelma), added hydralazine [address] Díaz
[2019-12-26] MEDS: hydrALAZINE HCL 25 MG TABLET (FP) PO SCH ×2 (10:39→21:38)
[2019-12-26] MEDS: AMIODARONE HCL 200 MG TABLET PO SCH (10:40)
[2019-12-26] MEDS: ISOSORBIDE MONONITRATE 60 MG TAB.SR.24H (FP) PO SCH (10:40)
[2019-12-26] MEDS: APIXABAN 5 MG TABLET PO SCH ×2 (10:40→21:38)
[2019-12-26] MEDS: NIACIN 500 MG TABLET PO SCH (10:41)
[2019-12-26] MEDS: RANOLAZINE E.R. 500 MG TABLET (FP) PO SCH ×2 (10:41→21:38)
[2019-12-26] MEDS: CLOPIDOGREL BISULFATE 75 MG TABLET (FP) PO SCH (10:41)
--- NOTE | 2019-12-26 17:45 | PN ---
Physical Exam: 74 M h/o DM2, HTN, CAD (s/p stent placement 1 month ago), AFib (Eliquis and Amiodarone), and R iliac stent. He presented to the ER after a syncopal episode. Patient evaluated by Cardiology who recommends fitting for an ICD vest prior to discharge, patient fitted for life vest, however last night had episode of "shaking" and instability when ambulating to bathroom, hit his head but no LOC, CT-B unremarkable, VSS, tele not showing arrythmias will observe for another night prior to DC. PE VSS GA comfortable, AAox3, sitting up in bed, NAD HEENT raccoon eyes+ but improving, negative nguyễn sign, neck supple, dry MM, no cervcial spine tenderness Chest CTAB, bibasilar crackles present CVS S1, S2+, RRR Abd Soft, NT, ND, BS+ Ext No LE edema Orthostatics negative Vital Signs (72 hours) 12/23/19 12/24/19 12/24/19 18:00 02:00 06:00 Temperature 97.4 F L Pulse Rate 49 L 49 L 60 Respiratory 18 18 18 Rate Blood Pressure 143/81 121/73 144/83 O2 Sat by Pulse Oximetry (%) 12/24/19 12/24/19 12/24/19 09:00 10:00 14:20 Temperature 97.7 F 97.9 F Pulse Rate 52 L 49 L Respiratory 18 18 18 Rate Blood Pressure 101/71 132/79 O2 Sat by Pulse 98 Oximetry (%) 12/24/19 12/24/19 12/24/19 18:00 21:00 22:00 Temperature 98.1 F 98.1 F Pulse Rate 52 L 52 L Respiratory 18 18 18 Rate Blood Pressure 123/85 132/86 O2 Sat by Pulse 98 Oximetry (%) 12/25/19 12/25/19 12/25/19 02:00 06:00 08:36 Temperature 97.9 F 98.1 F Pulse Rate 47 L 51 L Respiratory 18 18 18 Rate Blood Pressure 102/73 120/68 O2 Sat by Pulse 99 Oximetry (%) 12/25/19 12/25/19 12/25/19 10:00 14:25 17:00 Temperature 98.4 F 97.6 F Pulse Rate 53 L 52 L 53 L Respiratory 20 18 20 Rate Blood Pressure 128/79 137/84 115/72 O2 Sat by Pulse Oximetry (%) 12/25/19 12/26/19 12/26/19 21:00 02:12 06:00 Temperature 99.1 F 97.6 F 99 F Pulse Rate 57 L 54 L 51 L Respiratory 18 18 18 Rate Blood Pressure 105/78 117/68 116/76 O2 Sat by Pulse 98 Oximetry (%) 12/26/19 14:35 Temperature 98.8 F Pulse Rate 54 L Respiratory 16 Rate Blood Pressure 93/59 L O2 Sat by Pulse Oximetry (%) Laboratory Results - last 24 hr 12/25/19 12/26/19 12/26/19 22:17 06:23 12:33 POC Glucometer 125 94 101 Current Medications Generic Name Dose Route Start Last Admin Trade Name Freq PRN Reason Stop Dose Admin Acetaminophen 650 mg 12/23/19 15:59 12/25/19 22:19 Tylenol - PO 650 mg Q6H PRN Administration PAIN LEVEL 4 - 6 Amiodarone HCl 100 mg 12/24/19 10:00 12/26/19 10:40 Cordarone - PO 100 mg DAILY NATI Administration Apixaban 5 mg 12/24/19 10:00 12/26/19 10:40 Eliquis - PO 5 mg BID NATI Administration Atorvastatin Calcium 20 mg 12/23/19 22:00 12/25/19 22:19 Lipitor - PO 20 mg HS NATI Administration Clopidogrel Bisulfate 75 mg 12/25/19 10:00 12/26/19 10:41 Plavix - PO 75 mg DAILY NATI Administration Hydralazine HCl 25 mg 12/23/19 22:00 12/26/19 10:39 Apresoline - PO 25 mg BID NATI Administration Insulin Aspart 1 units 12/23/19 07:00 12/26/19 12:34 Novolog Vial SQ Not Given ACHS NATI Protocol Isosorbide Mononitrate 120 mg 12/23/19 10:00 12/26/19 10:40 Imdur - PO 120 mg DAILY NATI Administration Metoprolol Succinate 50 mg 12/23/19 10:00 12/26/19 10:42 Toprol Xl - PO 50 mg BID NATI Administration Niacin 500 mg 12/23/19 10:00 12/26/19 10:41 Niacin PO 500 mg DAILY NATI Administration Ranolazine 500 mg 12/23/19 10:00 12/26/19 10:41 Ranexa - PO 500 mg BID NATI Administration Tamsulosin HCl 0.4 mg 12/24/19 22:00 12/25/19 22:19 Flomax - PO 0.4 mg DAILY@2200 NATI Administration Zolpidem Tartrate 5 mg 12/24/19 22:45 12/25/19 22:19 Ambien - PO 5 mg HS PRN Administration INSOMNIA A/P: 74 M h/o CAD s/p recent stent placement, iliac stent, Afib on AC/Amiodarone, HTN , Diabetes, presents after syncopal event. Syncope with closed head trauma ?due to cardiac arrythmia in setting of low EF, nothing seen on telemetry, ? shaking episode likely non-cardiac related, ICD fitted, will observe one more night on tele due to near syncope last night. Cont. tele monitoring, Pain control w/ Tylenol Cardiology consult: Dr Díaz Neurology: Dr. Valente recommending outpatient clinic follow up CAD S/p recent stent placement Cardiology recommended restart Plavix, Statin, AC Cont. Imdur ICD vest fitted Iliac stent Cont. statin, Ranexa T2Dm ISS, supplement basal coverage as needed cont. Nortriptyline for neuropathy HTn Cont. BP meds, monitor lytes Afib cont. Amiodarone at 100mg daily restart AC as per Cardiology recommendation Insomnia cont. Melatonin, Ambien DVT ppx: Eliquis FEN: PO hydration, daily chem, Na restricted diet tele-monitoring 24 hour DC notice Visit type - Emergency Visit Emergency Visit: Yes ED Registration Date: 12/22/19 Care time: The patient presented to the Emergency Department on the above date and was hospitalized for further evaluation of their emergent condition. - New Patient This patient is new to me today: No - Critical Care Critical Care patient: No - Discharge Referral Referred to [facility] No
[2019-12-26] MEDS: ACETAMINOPHEN 325 MG TABLET (FP) PO PRN (21:38)
[2019-12-26] MEDS: TAMSULOSIN HCL 0.4 MG CAP PO SCH (21:38)
[2019-12-26] MEDS: ZOLPIDEM TARTRATE 5 MG TABLET PO PRN (21:38)
[2019-12-26] MEDS: ATORVASTATIN CA 20 MG TABLET (FP) PO SCH (21:38)
[2019-12-27] MEDS: INSULIN (NOVOLOG) ASPART 100 UNITS/ML 10ML VIAL SQ SCH ×4 (06:53→22:15)
--- NOTE | 2019-12-27 07:57 | PN ---
Progress Note, Physician Chief Complaint: Syncopal episode today when attempting to walk to bathroom. States he felt dizzy and legs felt weak, gave out and he eased himself down to floor. History of Present Illness: 74 year old male with PMH of DM, HTN, CAD (s/p stent placement 1 month ago), AFib (Eliquis and Amiodarone), and R iliac stent. He presented to the ER after a syncopal episode .Syncopal and cardiac w/u in progress 74 M h/o DM2, HTN, CAD (s/p stent placement 1 month ago), AFib (Eliquis and Amiodarone), and R iliac stent. He presented to the ER after a syncopal episode. Patient evaluated by Cardiologyand fitted for ICD vest prior to discharge, patient fitted for life vest, however last night had episode of "shaking" and instability when ambulating to bathroom, hit his head but no LOC, CT-B unremarkable, VSS, tele not showing arrythmias will observe for another night prior to DC. - Current Medication List Current Medications: Active Medications Acetaminophen (Tylenol -) 650 mg PO Q6H PRN PRN Reason: PAIN LEVEL 4 - 6 Last Admin: 12/26/19 21:38 Dose: 650 mg Amiodarone HCl (Cordarone -) 100 mg PO DAILY [facility] Last Admin: 12/26/19 10:40 Dose: 100 mg Apixaban (Eliquis -) 5 mg PO BID [facility] Last Admin: 12/26/19 21:38 Dose: 5 mg Atorvastatin Calcium (Lipitor -) 20 mg PO HS [facility] Last Admin: 12/26/19 21:38 Dose: 20 mg Clopidogrel Bisulfate (Plavix -) 75 mg PO DAILY [facility] Last Admin: 12/26/19 10:41 Dose: 75 mg Hydralazine HCl (Apresoline -) 25 mg PO BID [facility] Last Admin: 12/26/19 21:38 Dose: 25 mg Insulin Aspart (Novolog Vial) 1 units SQ [facility]; Protocol Last Admin: 12/27/19 06:53 Dose: Not Given Isosorbide Mononitrate (Imdur -) 120 mg PO DAILY [facility] Last Admin: 12/26/19 10:40 Dose: 120 mg Metoprolol Succinate (Toprol Xl -) 50 mg PO BID [facility] Last Admin: 12/26/19 21:38 Dose: 50 mg Niacin (Niacin) 500 mg PO DAILY [facility] Last Admin: 12/26/19 10:41 Dose: 500 mg Ranolazine (Ranexa -) 500 mg PO BID [facility] Last Admin: 12/26/19 21:38 Dose: 500 mg Tamsulosin HCl (Flomax -) 0.4 mg PO DAILY@2200 [facility] Last Admin: 12/26/19 21:38 Dose: 0.4 mg Zolpidem Tartrate (Ambien -) 5 mg PO HS PRN PRN Reason: INSOMNIA Last Admin: 12/26/19 21:38 Dose: 5 mg - Objective Vital Signs: Vital Signs Temperature 98.3 F 12/27/19 06:01 Pulse Rate 57 L 12/27/19 06:01 Respiratory Rate 18 12/27/19 06:01 Blood Pressure 145/75 12/27/19 06:01 O2 Sat by Pulse Oximetry (%) 98 12/26/19 21:00 Constitutional: Yes: Well Nourished, No Distress, Calm Eyes: Yes: WNL, Conjunctiva Clear, Other (ecchymosis to oribital area BL and forehead) HENT: Yes: WNL, Atraumatic, Normocephalic Neck: Yes: WNL, Supple, Trachea Midline Cardiovascular: Yes: Bradycardia (40-50s) Respiratory: Yes: WNL, Regular, CTA Bilaterally Gastrointestinal: Yes: WNL, Normal Bowel Sounds ...Rectal Exam: Yes: Deferred Genitourinary: Yes: WNL Breast(s): Yes: WNL Musculoskeletal: Yes: WNL Extremities: Yes: WNL Edema: No Peripheral Pulses WNL: Yes Peripheral Pulses: Left Radial: 2+, Right Radial: 2+, Left Doralis Pedis: 2+, Right Dorsalis Pedis: 2+, Left Femoral: 2+, Right Femoral: 2+ Integumentary: Yes: Bruising Neurological: Yes: WNL, Alert, Oriented, Weakness (to LEBL) ...Motor Strength: LLE, RLE (weakness) Psychiatric: Yes: WNL Labs: CBC, BMP 12/25/19 06:50 INR, PTT INR 1.89 (0.83-1.09) H 12/22/19 14:12 - ....Imaging EKG: Image Reviewed (EKG: Sinus eriberto) Problem List - Problems (1) S/P insertion of iliac artery stent Code(s): Z95.828 - PRESENCE OF OTHER VASCULAR IMPLANTS AND GRAFTS (2) Hyperkalemia Assessment/Plan: K stabilized lokelma x 1 given continue to monitor Code(s): E87.5 - HYPERKALEMIA (3) Atrial fibrillation Assessment/Plan: Continue amio 100 qd, Ranexa 500 bid, Toprol XL 50 bid (as tolerated) Code(s): I48.91 - UNSPECIFIED ATRIAL FIBRILLATION (4) CAD in [place] artery Assessment/Plan: Imdur 120 qd, Eliquis 5 bid, Plavix 75 qd, Lipitor 20 qd eventual ARB or Entresto as renal fxn currently on hydralazine (with hold parameters) Code(s): I25.10 - ATHSCL HEART DISEASE OF [place] CORONARY ARTERY W/O ANG PCTRS (5) DM type 2 (diabetes mellitus, type 2) Assessment/Plan: BGM AC/Hs with novolog sliding scale diabetic diet Code(s): E11.9 - TYPE 2 DIABETES MELLITUS WITHOUT COMPLICATIONS Qualifiers: Diabetes mellitus jail insulin use: without jail use (6) HLD (hyperlipidemia) Assessment/Plan: c/w statin Code(s): E78.5 - HYPERLIPIDEMIA, UNSPECIFIED Qualifiers: Hyperlipidemia type: pure hypercholesterolemia Qualified Code(s): E78.00 - Pure hypercholesterolemia, unspecified; E78.0 - Pure hypercholesterolemia (7) AV bloc first degree Assessment/Plan: EKG: First degree AV block, AD and septal infarct of undetermined age fitted for life vest Code(s): I44.0 - ATRIOVENTRICULAR BLOCK, FIRST DEGREE (8) Acute kidney injury superimposed on chronic kidney disease Assessment/Plan: renal following Cr 2.1, baseline avoid nephrotoxic agents high PVR, c/w flomax seen by urology UDS, cystoscopy and ESWL as outpatient. Code(s): N17.9 - ACUTE KIDNEY FAILURE, UNSPECIFIED; N18.9 - CHRONIC KIDNEY DISEASE, UNSPECIFIED (9) Weakness Assessment/Plan: weakness to LE causing falls seen by neurology C/W PT with gait, stability training refusing SNF presently Code(s): R53.1 - WEAKNESS Visit type - Emergency Visit Emergency Visit: Yes ED Registration Date: 12/22/19 Care time: The patient presented to the Emergency Department on the above date and was hospitalized for further evaluation of their emergent condition. - New Patient This patient is new to me today: Yes Date on this admission: 12/27/19 - Critical Care Critical Care patient: No - Discharge Referral Referred to [facility] No
[2019-12-27 08:18] LABS: BLOOD UREA NITROGEN 26.5 mg/dL (7-18); CALCIUM 8.2 mg/dL (8.5-10.1); CREATININE 2.1 mg/dL (0.55-1.3); POTASSIUM 4.5 mmol/L (3.5-5.1)
[2019-12-27] MEDS: CLOPIDOGREL BISULFATE 75 MG TABLET (FP) PO SCH (09:40)
[2019-12-27] MEDS: RANOLAZINE E.R. 500 MG TABLET (FP) PO SCH ×2 (09:40→21:31)
[2019-12-27] MEDS: APIXABAN 5 MG TABLET PO SCH ×2 (09:40→21:32)
[2019-12-27] MEDS: NIACIN 500 MG TABLET PO SCH (09:41)
[2019-12-27] MEDS: AMIODARONE HCL 200 MG TABLET PO SCH (09:41)
[2019-12-27] MEDS: hydrALAZINE HCL 25 MG TABLET (FP) PO SCH ×2 (10:00→21:31)
[2019-12-27] MEDS: ISOSORBIDE MONONITRATE 60 MG TAB.SR.24H (FP) PO SCH (10:00)
--- NOTE | 2019-12-27 10:40 | PN ---
Progress Note, Physician Chief Complaint: Events noted Unsteady gait with episodic fall History of Present Illness: Patient was seen and examined. Awake and alert. Chart was reviewed Currently LifeVest fitted. Denies chest pain, SOB or palpitations. Episodic weakness of lower extremity causing him to fall - Current Medication List Current Medications: Active Medications Acetaminophen (Tylenol -) 650 mg PO Q6H PRN PRN Reason: PAIN LEVEL 4 - 6 Last Admin: 12/26/19 21:38 Dose: 650 mg Amiodarone HCl (Cordarone -) 100 mg PO DAILY [facility] Last Admin: 12/27/19 09:41 Dose: 100 mg Apixaban (Eliquis -) 5 mg PO BID [facility] Last Admin: 12/27/19 09:40 Dose: 5 mg Atorvastatin Calcium (Lipitor -) 20 mg PO HS [facility] Last Admin: 12/26/19 21:38 Dose: 20 mg Clopidogrel Bisulfate (Plavix -) 75 mg PO DAILY [facility] Last Admin: 12/27/19 09:40 Dose: 75 mg Hydralazine HCl (Apresoline -) 25 mg PO BID [facility] Last Admin: 12/26/19 21:38 Dose: 25 mg Insulin Aspart (Novolog Vial) 1 units SQ [facility]; Protocol Last Admin: 12/27/19 06:53 Dose: Not Given Isosorbide Mononitrate (Imdur -) 120 mg PO DAILY [facility] Last Admin: 12/26/19 10:40 Dose: 120 mg Metoprolol Succinate (Toprol Xl -) 50 mg PO BID [facility] Last Admin: 12/26/19 21:38 Dose: 50 mg Niacin (Niacin) 500 mg PO DAILY [facility] Last Admin: 12/27/19 09:41 Dose: 500 mg Ranolazine (Ranexa -) 500 mg PO BID [facility] Last Admin: 12/27/19 09:40 Dose: 500 mg Tamsulosin HCl (Flomax -) 0.4 mg PO DAILY@2200 [facility] Last Admin: 12/26/19 21:38 Dose: 0.4 mg Zolpidem Tartrate (Ambien -) 5 mg PO HS PRN PRN Reason: INSOMNIA Last Admin: 12/26/19 21:38 Dose: 5 mg - Objective Vital Signs: Vital Signs Temperature 98.3 F 12/27/19 06:01 Pulse Rate 57 L 12/27/19 06:01 Respiratory Rate 18 0203/20 06:01 Blood Pressure 145/75 12/27/19 06:01 O2 Sat by Pulse Oximetry (%) 98 12/26/19 21:00 Eyes: Yes: PERRL HENT: Yes: Atraumatic Neck: Yes: Supple Cardiovascular: Yes: Regular Rate and Rhythm, S1, S2 Respiratory: Yes: CTA Bilaterally Gastrointestinal: Yes: Normal Bowel Sounds, Soft. No: Tenderness Edema: No Additional Findings/Remarks: - Review of Systems Constitutional: denies: Chills, Fever Cardiovascular: denies Shortness of Breath. denies: Chest Pain, Palpitations Respiratory: denies Cough, SOB, SOB on Exertion. denies: Hemoptysis, Orthopnea , PND Gastrointestinal: denies: Abdominal Pain, Constipation, Diarrhea, Melena, Nausea , Rectal Bleeding, Vomiting Musculoskeletal: denies: Back Pain, Joint Pain Neurological: denies: Dizziness, Headache, Seizure, (+) Syncope Labs: CBC, BMP 12/25/19 06:50 12/27/19 06:05 Problem List - Problems (1) Acute kidney injury superimposed on chronic kidney disease Code(s): N17.9 - ACUTE KIDNEY FAILURE, UNSPECIFIED; N18.9 - CHRONIC KIDNEY DISEASE, UNSPECIFIED (2) Demand ischemia Code(s): I24.8 - OTHER FORMS OF ACUTE ISCHEMIC HEART DISEASE (3) Hyperkalemia Code(s): E87.5 - HYPERKALEMIA (4) Ischemic cardiomyopathy Code(s): I25.5 - ISCHEMIC CARDIOMYOPATHY (5) S/P CABG (coronary artery bypass graft) Code(s): Z95.1 - PRESENCE OF AORTOCORONARY BYPASS GRAFT (6) S/P coronary artery stent placement Code(s): Z95.5 - PRESENCE OF CORONARY ANGIOPLASTY IMPLANT AND GRAFT (7) S/P insertion of iliac artery stent Code(s): Z95.828 - PRESENCE OF OTHER VASCULAR IMPLANTS AND GRAFTS (8) Syncope Code(s): R55 - SYNCOPE AND COLLAPSE Qualifiers: Syncope type: unspecified Qualified Code(s): R55 - Syncope and collapse (9) Atrial fibrillation Code(s): I48.91 - UNSPECIFIED ATRIAL FIBRILLATION (10) CAD in [place] artery Code(s): I25.10 - ATHSCL HEART DISEASE OF [place] CORONARY ARTERY W/O ANG PCTRS (11) DM type 2 (diabetes mellitus, type 2) Code(s): E11.9 - TYPE 2 DIABETES MELLITUS WITHOUT COMPLICATIONS Qualifiers: Diabetes mellitus assistant terminal manager insulin use: without care home use (12) HLD (hyperlipidemia) Code(s): E78.5 - HYPERLIPIDEMIA, UNSPECIFIED Qualifiers: Hyperlipidemia type: pure hypercholesterolemia Qualified Code(s): E78.00 - Pure hypercholesterolemia, unspecified; E78.0 - Pure hypercholesterolemia Assessment/Plan 1. Syncope with closed head trauma 2. CAD s/p CABG, complex stent distal LM to proximal to mid LAD, demand ischemia 3. Severe LV systolic dysfunction w/o evidence of LV failure 4. Hypertension 5. Hyperlipidemia 6. Type 2 DM 7. Carotid stenosis s/p right CEA and stent 8. CKD with Hyperkalemia 9. Anemia of CKD 10. Paroxysmal AF on Eliquis 11. Unsteady gait PLAN: 1. LifeVest fitted and eventually require ICD implant as outpatient. 2. Last troponin 0.42 (12/24/19) 3. Continue Amiodarone 100 mg QD, Ranexa 500 mg BID, Toprol XL 50 mg BID, Imdur 120 mg QD, Eliquis 5 mg BID, Plavix 75 mg QD and Lipitor 20 mg QHS. Eventual ARB or Entresto as renal function and hyperkalemia stabilizes. Currently on Hydralazine 25 mg BID 4. PT and if still remains unsteady, may require outpatient short term rehab. Lyndsayed Pascual Alvarez MD
--- NOTE | 2019-12-27 18:46 | PN ---
Progress Note, Physician History of Present Illness: Pt seen and examined at bedside. he is awake and alert. He had an episode of weakness and pre-syncope today. - Current Medication List Current Medications: Active Medications Acetaminophen (Tylenol -) 650 mg PO Q6H PRN PRN Reason: PAIN LEVEL 4 - 6 Last Admin: 12/26/19 21:38 Dose: 650 mg Amiodarone HCl (Cordarone -) 100 mg PO DAILY [facility] Last Admin: 12/27/19 09:41 Dose: 100 mg Apixaban (Eliquis -) 5 mg PO BID [facility] Last Admin: 12/27/19 09:40 Dose: 5 mg Atorvastatin Calcium (Lipitor -) 20 mg PO HS [facility] Last Admin: 12/26/19 21:38 Dose: 20 mg Clopidogrel Bisulfate (Plavix -) 75 mg PO DAILY [facility] Last Admin: 12/27/19 09:40 Dose: 75 mg Hydralazine HCl (Apresoline -) 25 mg PO BID [facility] Last Admin: 12/27/19 10:00 Dose: Not Given Insulin Aspart (Novolog Vial) 1 units SQ [facility]; Protocol Last Admin: 12/27/19 17:31 Dose: Not Given Isosorbide Mononitrate (Imdur -) 120 mg PO DAILY [facility] Last Admin: 12/27/19 10:00 Dose: Not Given Metoprolol Succinate (Toprol Xl -) 50 mg PO BID [facility] Last Admin: 12/27/19 10:00 Dose: Not Given Niacin (Niacin) 500 mg PO DAILY [facility] Last Admin: 12/27/19 09:41 Dose: 500 mg Ranolazine (Ranexa -) 500 mg PO BID [facility] Last Admin: 12/27/19 09:40 Dose: 500 mg Tamsulosin HCl (Flomax -) 0.4 mg PO DAILY@2200 [facility] Last Admin: 12/26/19 21:38 Dose: 0.4 mg - Objective Vital Signs: Vital Signs Temperature 98 F 12/27/19 14:35 Pulse Rate 49 L 12/27/19 14:35 Respiratory Rate 18 12/27/19 14:35 Blood Pressure 125/74 12/27/19 14:35 O2 Sat by Pulse Oximetry (%) 95 12/27/19 09:00 Constitutional: Yes: Calm Eyes: Yes: Conjunctiva Clear HENT: Yes: Atraumatic Neck: Yes: Supple Cardiovascular: Yes: S1, S2 Respiratory: Yes: CTA Bilaterally Gastrointestinal: Yes: Soft Genitourinary: Yes: WNL Musculoskeletal: Yes: WNL Edema: No Neurological: Yes: Oriented Psychiatric: Yes: Oriented Labs: CBC, BMP 12/25/19 06:50 12/27/19 06:05 INR, PTT INR 1.89 (0.83-1.09) H 12/22/19 14:12 Problem List - Problems (1) CKD (chronic kidney disease) Code(s): N18.9 - CHRONIC KIDNEY DISEASE, UNSPECIFIED Qualifiers: Chronic kidney disease stage: stage 3 (moderate) Qualified Code(s): N18.3 - Chronic kidney disease, stage 3 (moderate) (2) Syncope Code(s): R55 - SYNCOPE AND COLLAPSE Qualifiers: Syncope type: unspecified Qualified Code(s): R55 - Syncope and collapse (3) Atrial fibrillation Code(s): I48.91 - UNSPECIFIED ATRIAL FIBRILLATION (4) CAD in [place] artery Code(s): I25.10 - ATHSCL HEART DISEASE OF [place] CORONARY ARTERY W/O ANG PCTRS Assessment/Plan Current Medications Generic Name Dose Route Start Last Admin Trade Name Freq PRN Reason Stop Dose Admin Acetaminophen 650 mg 12/23/19 15:59 12/26/19 21:38 Tylenol - PO 650 mg Q6H PRN Administration PAIN LEVEL 4 - 6 Amiodarone HCl 100 mg 12/24/19 10:00 12/27/19 09:41 Cordarone - PO 100 mg DAILY [facility]I Administration Apixaban 5 mg 12/24/19 10:00 12/27/19 09:40 Eliquis - PO 5 mg BID [facility]I Administration Atorvastatin Calcium 20 mg 12/23/19 22:00 12/26/19 21:38 Lipitor - PO 20 mg HS [facility]I Administration Clopidogrel Bisulfate 75 mg 12/25/19 10:00 12/27/19 09:40 Plavix - PO 75 mg DAILY [facility] Administration Hydralazine HCl 25 mg 12/23/19 22:00 12/27/19 10:00 Apresoline - PO Not Given BID [facility] Insulin Aspart 1 units 12/23/19 07:00 12/27/19 17:31 Novolog Vial SQ Not Given ACHS [facility] Protocol Isosorbide Mononitrate 120 mg 12/23/19 10:00 12/27/19 10:00 Imdur - PO Not Given DAILY [facility] Metoprolol Succinate 50 mg 12/23/19 10:00 12/27/19 10:00 Toprol Xl - PO Not Given BID [facility] Niacin 500 mg 12/23/19 10:00 12/27/19 09:41 Niacin PO 500 mg DAILY [facility] Administration Ranolazine 500 mg 12/23/19 10:00 12/27/19 09:40 Ranexa - PO 500 mg BID [facility] Administration Tamsulosin HCl 0.4 mg 12/24/19 22:00 12/26/19 21:38 Flomax - PO 0.4 mg DAILY@2200 [facility] Administration Impression 1. CKD 2. hyperkalemia 3. cad 4. pvd 5. syncope 6. a-fib Plan - cont to monitor renal function - monitor bp - avoid nsaids - avoid hypotension - consider decreasing hydralazine dose - cardio follow up
[2019-12-27] MEDS ORDERED: ZOLPIDEM TARTRATE 5 MG TABLET PO ONE (20:32)
[2019-12-27] MEDS: ATORVASTATIN CA 20 MG TABLET (FP) PO SCH (21:30)
[2019-12-27] MEDS: TAMSULOSIN HCL 0.4 MG CAP PO SCH (21:31)
[2019-12-28] MEDS: INSULIN (NOVOLOG) ASPART 100 UNITS/ML 10ML VIAL SQ SCH ×3 (06:34→17:40)
[2019-12-28 06:47] LABS: BASO % 0.7 % (0-2.0); EOS % 6.2 % (0-4.5); HEMATOCRIT 31.1 % (35.4-49); HEMOGLOBIN 10.5 GM/dL (11.7-16.9); LYMPH % 12.7 % (8-40); MCH 32.3 pg (25.7-33.7); MCHC 33.7 g/dl (32.0-35.9); MEAN PLT VOLUME 7.4 fl (7.5-11.1); MONO % 11.9 % (3.8-10.2); NEUT % 68.5 % (42.8-82.8); PLATELET COUNT 237 K/MM3 (134-434); RBC 3.24 M/mm3 (4.00-5.60); WHITE BLOOD COUNT 6.8 K/mm3 (4.0-10.0)
[2019-12-28 07:11] LABS: ALBUMIN 2.6 g/dl (3.4-5.0); BILIRUBIN,TOTAL 0.6 mg/dL (0.2-1); BLOOD UREA NITROGEN 20.2 mg/dL (7-18); CALCIUM 8.6 mg/dL (8.5-10.1); CREATININE 1.8 mg/dL (0.55-1.3); MAGNESIUM 1.5 mg/dL (1.8-2.4); POTASSIUM 4.4 mmol/L (3.5-5.1); TOT PROT 7.1 g/dl (6.4-8.2)
[2019-12-28] MEDS: ISOSORBIDE MONONITRATE 60 MG TAB.SR.24H (FP) PO SCH (09:57)
[2019-12-28] MEDS: APIXABAN 5 MG TABLET PO SCH (09:58)
[2019-12-28] MEDS: CLOPIDOGREL BISULFATE 75 MG TABLET (FP) PO SCH (09:58)
[2019-12-28] MEDS: AMIODARONE HCL 200 MG TABLET PO SCH (09:58)
[2019-12-28] MEDS: RANOLAZINE E.R. 500 MG TABLET (FP) PO SCH (09:59)
[2019-12-28] MEDS: NIACIN 500 MG TABLET PO SCH (10:01)
[2019-12-28] MEDS ORDERED: PT OWN MED DRAWER 7, Y5N ONE (10:01)
--- NOTE | 2019-12-28 10:27 | PN ---
Progress Note, Physician Chief Complaint: Events noted Unsteady gait with episodic fall Had PT with walking in the hallway of the hospital with a walker History of Present Illness: Patient was seen and examined. Awake and alert. Chart was reviewed Currently LifeVest fitted. Denies chest pain, SOB or palpitations. Episodic weakness of lower extremity causing him to fall No additional falls noted - Current Medication List Current Medications: Active Medications Acetaminophen (Tylenol -) 650 mg PO Q6H PRN PRN Reason: PAIN LEVEL 4 - 6 Last Admin: 12/26/19 21:38 Dose: 650 mg Amiodarone HCl (Cordarone -) 100 mg PO DAILY [facility] Last Admin: 12/28/19 09:58 Dose: 100 mg Apixaban (Eliquis -) 5 mg PO BID [facility] Last Admin: 12/28/19 09:58 Dose: 5 mg Atorvastatin Calcium (Lipitor -) 20 mg PO HS [facility] Last Admin: 12/27/19 21:30 Dose: 20 mg Clopidogrel Bisulfate (Plavix -) 75 mg PO DAILY [facility] Last Admin: 12/28/19 09:58 Dose: 75 mg Hydralazine HCl (Apresoline -) 25 mg PO BID [facility] Last Admin: 12/27/19 21:31 Dose: 25 mg Insulin Aspart (Novolog Vial) 1 units SQ [facility]; Protocol Last Admin: 12/28/19 06:34 Dose: Not Given Isosorbide Mononitrate (Imdur -) 120 mg PO DAILY [facility] Last Admin: 12/28/19 09:57 Dose: 120 mg Metoprolol Succinate (Toprol Xl -) 50 mg PO BID [facility] Last Admin: 12/28/19 09:58 Dose: 50 mg Niacin (Niacin) 500 mg PO DAILY [facility] Last Admin: 12/28/19 10:01 Dose: 500 mg Ranolazine (Ranexa -) 500 mg PO BID [facility] Last Admin: 12/28/19 09:59 Dose: 500 mg Tamsulosin HCl (Flomax -) 0.4 mg PO DAILY@2200 [facility] Last Admin: 12/27/19 21:31 Dose: 0.4 mg - Objective Vital Signs: Vital Signs Temperature 98.2 F 12/28/19 05:35 Pulse Rate 55 L 12/28/19 05:35 Respiratory Rate 18 12/28/19 05:35 Blood Pressure 118/72 12/28/19 05:35 O2 Sat by Pulse Oximetry (%) 97 12/27/19 21:00 Eyes: Yes: PERRL HENT: Yes: Atraumatic Neck: Yes: Supple Cardiovascular: Yes: Regular Rate and Rhythm, S1, S2 Respiratory: Yes: CTA Bilaterally Gastrointestinal: Yes: Normal Bowel Sounds, Soft. No: Tenderness Edema: No Additional Findings/Remarks: - Review of Systems Constitutional: denies: Chills, Fever Cardiovascular: denies: Shortness of Breath. denies: Chest Pain, Palpitations Respiratory: denies Cough, SOB, SOB on Exertion. denies: Hemoptysis, Orthopnea , PND Gastrointestinal: denies: Abdominal Pain, Constipation, Diarrhea, Melena, Nausea , Rectal Bleeding, Vomiting Musculoskeletal: denies: Back Pain, Joint Pain Neurological: denies: Dizziness, Headache, Seizure, (+) Syncope Labs: CBC, BMP 12/28/19 05:52 12/28/19 05:52 Problem List - Problems (1) Acute kidney injury superimposed on chronic kidney disease Code(s): N17.9 - ACUTE KIDNEY FAILURE, UNSPECIFIED; N18.9 - CHRONIC KIDNEY DISEASE, UNSPECIFIED (2) Demand ischemia Code(s): I24.8 - OTHER FORMS OF ACUTE ISCHEMIC HEART DISEASE (3) Hyperkalemia Code(s): E87.5 - HYPERKALEMIA (4) Ischemic cardiomyopathy Code(s): I25.5 - ISCHEMIC CARDIOMYOPATHY (5) S/P CABG (coronary artery bypass graft) Code(s): Z95.1 - PRESENCE OF AORTOCORONARY BYPASS GRAFT (6) S/P coronary artery stent placement Code(s): Z95.5 - PRESENCE OF CORONARY ANGIOPLASTY IMPLANT AND GRAFT (7) S/P insertion of iliac artery stent Code(s): Z95.828 - PRESENCE OF OTHER VASCULAR IMPLANTS AND GRAFTS (8) Syncope Code(s): R55 - SYNCOPE AND COLLAPSE Qualifiers: Syncope type: unspecified Qualified Code(s): R55 - Syncope and collapse (9) Atrial fibrillation Code(s): I48.91 - UNSPECIFIED ATRIAL FIBRILLATION (10) CAD in [place] artery Code(s): I25.10 - ATHSCL HEART DISEASE OF [place] CORONARY ARTERY W/O ANG PCTRS (11) DM type 2 (diabetes mellitus, type 2) Code(s): E11.9 - TYPE 2 DIABETES MELLITUS WITHOUT COMPLICATIONS Qualifiers: Diabetes mellitus fdc insulin use: without fdc use (12) HLD (hyperlipidemia) Code(s): E78.5 - HYPERLIPIDEMIA, UNSPECIFIED Qualifiers: Hyperlipidemia type: pure hypercholesterolemia Qualified Code(s): E78.00 - Pure hypercholesterolemia, unspecified; E78.0 - Pure hypercholesterolemia Assessment/Plan 1. Syncope with closed head trauma 2. CAD s/p CABG, complex stent distal LM to proximal to mid LAD, demand ischemia 3. Severe LV systolic dysfunction w/o evidence of LV failure 4. Hypertension 5. Hyperlipidemia 6. Type 2 DM 7. Carotid stenosis s/p right CEA and stent 8. CKD with Hyperkalemia 9. Anemia of CKD 10. Paroxysmal AF on Eliquis 11. Unsteady gait PLAN: 1. LifeVest fitted and eventually require ICD implant as outpatient - will make arrangement 2. Last troponin 0.42 (12/24/19) 3. Continue Amiodarone 100 mg QD, Ranexa 500 mg BID, Toprol XL 50 mg BID, Imdur 120 mg QD, Eliquis 5 mg BID, Plavix 75 mg QD and Lipitor 20 mg QHS. Eventual ARB or Entresto as renal function and hyperkalemia stabilizes. Currently on Hydralazine 25 mg BID as tolerated 4. Continue PT and if still remains unsteady, may require outpatient short term rehab. Otherwise, may need to use a walker while at home. Guarded Pascual Alvarez MD
[2019-12-28] MEDS: hydrALAZINE HCL 25 MG TABLET (FP) PO SCH (11:45)
--- NOTE | 2019-12-28 15:08 | PN ---
Progress Note, Physician History of Present Illness: Pt seen and examined at bedside. He is awake and alert. he denies dysuria or hematuria. - Current Medication List Current Medications: Active Medications Acetaminophen (Tylenol -) 650 mg PO Q6H PRN PRN Reason: PAIN LEVEL 4 - 6 Last Admin: 12/26/19 21:38 Dose: 650 mg Amiodarone HCl (Cordarone -) 100 mg PO DAILY [facility] Last Admin: 12/28/19 09:58 Dose: 100 mg Apixaban (Eliquis -) 5 mg PO BID [facility] Last Admin: 12/28/19 09:58 Dose: 5 mg Atorvastatin Calcium (Lipitor -) 20 mg PO [facility] Last Admin: 12/27/19 21:30 Dose: 20 mg Clopidogrel Bisulfate (Plavix -) 75 mg PO DAILY [facility] Last Admin: 12/28/19 09:58 Dose: 75 mg Hydralazine HCl (Apresoline -) 25 mg PO BID [facility] Last Admin: 12/28/19 11:45 Dose: 25 mg Insulin Aspart (Novolog Vial) 1 units SQ [facility]; Protocol Last Admin: 12/28/19 11:29 Dose: Not Given Isosorbide Mononitrate (Imdur -) 120 mg PO DAILY [facility] Last Admin: 12/28/19 09:57 Dose: 120 mg Metoprolol Succinate (Toprol Xl -) 50 mg PO BID [facility] Last Admin: 12/28/19 09:58 Dose: 50 mg Niacin (Niacin) 500 mg PO DAILY [facility] Last Admin: 12/28/19 10:01 Dose: 500 mg Ranolazine (Ranexa -) 500 mg PO BID [facility] Last Admin: 12/28/19 09:59 Dose: 500 mg Tamsulosin HCl (Flomax -) 0.4 mg PO DAILY@2200 [facility] Last Admin: 12/27/19 21:31 Dose: 0.4 mg - Objective Vital Signs: Vital Signs Temperature 98.5 F 12/28/19 10:00 Pulse Rate 53 L 12/28/19 10:00 Respiratory Rate 20 12/28/19 10:00 Blood Pressure 130/48 L 12/28/19 10:00 O2 Sat by Pulse Oximetry (%) 99 12/28/19 09:00 Constitutional: Yes: Calm Eyes: Yes: Conjunctiva Clear Neck: Yes: Supple Cardiovascular: Yes: S1, S2 Respiratory: Yes: CTA Bilaterally Gastrointestinal: Yes: Soft Genitourinary: Yes: WNL Musculoskeletal: Yes: WNL Edema: No Integumentary: Yes: WNL Neurological: Yes: Oriented Psychiatric: Yes: Oriented Labs: CBC, BMP 12/28/19 05:52 12/28/19 05:52 INR, PTT INR 1.89 (0.83-1.09) H 12/22/19 14:12 Problem List - Problems (1) CKD (chronic kidney disease) Code(s): N18.9 - CHRONIC KIDNEY DISEASE, UNSPECIFIED Qualifiers: Chronic kidney disease stage: stage 3 (moderate) Qualified Code(s): N18.3 - Chronic kidney disease, stage 3 (moderate) (2) Syncope Code(s): R55 - SYNCOPE AND COLLAPSE Qualifiers: Syncope type: unspecified Qualified Code(s): R55 - Syncope and collapse (3) Atrial fibrillation Code(s): I48.91 - UNSPECIFIED ATRIAL FIBRILLATION (4) CAD in [place] artery Code(s): I25.10 - ATHSCL HEART DISEASE OF [place] CORONARY ARTERY W/O ANG PCTRS Assessment/Plan Current Medications Generic Name Dose Route Start Last Admin Trade Name Freq PRN Reason Stop Dose Admin Acetaminophen 650 mg 12/23/19 15:59 12/26/19 21:38 Tylenol - PO 650 mg Q6H PRN Administration PAIN LEVEL 4 - 6 Amiodarone HCl 100 mg 12/24/19 10:00 12/28/19 09:58 Cordarone - PO 100 mg DAILY [facility] Administration Apixaban 5 mg 12/24/19 10:00 12/28/19 09:58 Eliquis - PO 5 mg BID [facility] Administration Atorvastatin Calcium 20 mg 12/23/19 22:00 12/27/19 21:30 Lipitor - PO 20 mg HS [facility] Administration Clopidogrel Bisulfate 75 mg 12/25/19 10:00 12/28/19 09:58 Plavix - PO 75 mg DAILY [facility] Administration Hydralazine HCl 25 mg 12/23/19 22:00 12/28/19 11:45 Apresoline - PO 25 mg BID [facility] Administration Insulin Aspart 1 units 12/23/19 07:00 12/28/19 11:29 Novolog Vial SQ Not Given [facility] Protocol Isosorbide Mononitrate 120 mg 12/23/19 10:00 02/04/20 09:57 Imdur - PO 120 mg DAILY [facility] Administration Metoprolol Succinate 50 mg 12/23/19 10:00 12/28/19 09:58 Toprol Xl - PO 50 mg BID [facility] Administration Niacin 500 mg 12/23/19 10:00 12/28/19 10:01 Niacin PO 500 mg DAILY [facility] Administration Ranolazine 500 mg 12/23/19 10:00 12/28/19 09:59 Ranexa - PO 500 mg BID [facility] Administration Tamsulosin HCl 0.4 mg 12/24/19 22:00 12/27/19 21:31 Flomax - PO 0.4 mg DAILY@2200 [facility] Administration Impression 1. CKD 2. hyperkalemia 3. cad 4. pvd 5. syncope 6. a-fib Plan - renal function stable - can follow as outpt - will need renal workup as outpt - monitor bp - avoid nsaids - avoid hypotension - decrease dose of hydralalzine - cardio follow up
[2019-12-28] MEDS ORDERED: hydrALAZINE HCL 10 MG TABLET PO SCH (15:09)
--- NOTE | 2019-12-28 15:17 | PN ---
Physical Exam: SUBJECTIVE: Patient seen and examined at the bedside. denies shortness of breath. OBJECTIVE: Patient is a 74 male with a history of diabetes, hypertension, cad, (s/p stent placement 1 month ago), AFib (Eliquis and Amiodarone), and R iliac stent. He presented to the ER after a syncopal episode. Patient evaluated by Cardiology and fitted for life vest. Patient sustained a fall during hospital stay secondary to lower ext weakness, head CT negative. Patient has been stable s/p fall and now. Encouraged him to use RW that has been provided to him for strength and to avoid any further falls. He and were asking about possible transfer to [place] for ICD placement vs going home. Discussed with patient that his city planning aide recommends ICD placement as an outpatient. Patient cleared by cardiology for discharge home with close cardiology follow up. Vital Signs Period Temp Pulse Resp BP Sys/Bella Pulse Ox Last 24 Hr 97.4 F-98.5 F 48-58 18-20 114-131/48-73 97-99 GENERAL: The patient is awake, alert, and fully oriented, in no acute distress. HEAD: bilateral eye eccymosis s/p fall EYES: PERRL, extraocular movements intact, sclera anicteric, conjunctiva clear. No ptosis. ENT: Ears normal, nares patent, oropharynx clear without exudates, moist mucous membranes. NECK: Trachea midline, full range of motion, supple. LUNGS: Breath sounds equal, clear to auscultation bilaterally HEART: Regular rate and rhythm ABDOMEN: Soft, nontender, nondistended, normoactive bowel sounds EXTREMITIES: no edema. NEUROLOGICAL: Normal speech, gait not observed. Laboratory Results - last 24 hr 12/27/19 12/27/19 12/28/19 17:30 22:11 05:52 WBC 6.8 RBC 3.24 L Hgb 10.5 L Hct 31.1 L MCV 96.0 MCH 32.3 MCHC 33.7 RDW 16.0 H Plt Count 237 MPV 7.4 L Absolute Neuts (auto) 4.7 Neutrophils % 68.5 Lymphocytes % 12.7 Monocytes % 11.9 H Eosinophils % 6.2 H Basophils % 0.7 Nucleated RBC % 0 Sodium Potassium Chloride Carbon Dioxide Anion Gap BUN Creatinine Est GFR (CKD-EPI)AfAm Est GFR (CKD-EPI)NonAf POC Glucometer 93 150 Random Glucose Calcium Magnesium Total Bilirubin AST ALT Alkaline Phosphatase Total Protein Albumin 12/28/19 12/28/19 12/28/19 05:52 06:27 11:11 WBC RBC Hgb Hct MCV MCH MCHC RDW Plt Count MPV Absolute Neuts (auto) Neutrophils % Lymphocytes % Monocytes % Eosinophils % Basophils % Nucleated RBC % Sodium 137 Potassium 4.4 Chloride 106 Carbon Dioxide 26 Anion Gap 5 L BUN 20.2 H Creatinine 1.8 H Est GFR (CKD-EPI)AfAm 42.63 Est GFR (CKD-EPI)NonAf 36.78 POC Glucometer 91 105 Random Glucose 97 Calcium 8.6 Magnesium 1.5 L Total Bilirubin 0.6 AST 32 ALT 23 Alkaline Phosphatase 73 Total Protein 7.1 Albumin 2.6 L Active Medications Generic Name Dose Route Start Last Admin Trade Name Freq PRN Reason Stop Dose Admin Acetaminophen 650 mg 12/23/19 15:59 12/26/19 21:38 Tylenol - PO 650 mg Q6H PRN Administration PAIN LEVEL 4 - 6 Amiodarone HCl 100 mg 12/24/19 10:00 12/28/19 09:58 Cordarone - PO 100 mg DAILY [facility] Administration Apixaban 5 mg 12/24/19 10:00 12/28/19 09:58 Eliquis - PO 5 mg BID [facility] Administration Atorvastatin Calcium 20 mg 12/23/19 22:00 12/27/19 21:30 Lipitor - PO 20 mg HS [facility] Administration Clopidogrel Bisulfate 75 mg 12/25/19 10:00 12/28/19 09:58 Plavix - PO 75 mg DAILY [facility] Administration Hydralazine HCl 10 mg 12/28/19 15:09 Apresoline - PO BID [facility] Insulin Aspart 1 units 12/23/19 07:00 12/28/19 11:29 Novolog Vial SQ Not Given A[facility] Protocol Isosorbide Mononitrate 120 mg 12/23/19 10:00 12/28/19 09:57 Imdur - PO 120 mg DAILY [facility] Administration Metoprolol Succinate 50 mg 12/23/19 10:00 12/28/19 09:58 Toprol Xl - PO 50 mg BID [facility] Administration Niacin 500 mg 12/23/19 10:00 12/28/19 10:01 Niacin PO 500 mg DAILY [facility] Administration Ranolazine 500 mg 12/23/19 10:00 12/28/19 09:59 Ranexa - PO 500 mg BID [facility] Administration Tamsulosin HCl 0.4 mg 12/24/19 22:00 12/27/19 21:31 Flomax - PO 0.4 mg DAILY@2200 [facility] Administration ASSESSMENT/PLAN: Problem List - Problems (1) MARIANNA (acute kidney injury) Assessment/Plan: renal following Cr 1.8 avoid nephrotoxic agents high PVR, c/w flomax seen by urology UDS, cystoscopy and ESWL as outpatient Code(s): N17.9 - ACUTE KIDNEY FAILURE, UNSPECIFIED (2) AV bloc first degree Assessment/Plan: EKG: First degree AV block, AD and septal infarct of undetermined age has life vest Code(s): I44.0 - ATRIOVENTRICULAR BLOCK, FIRST DEGREE (3) Acute kidney injury superimposed on chronic kidney disease Code(s): N17.9 - ACUTE KIDNEY FAILURE, UNSPECIFIED; N18.9 - CHRONIC KIDNEY DISEASE, UNSPECIFIED (4) Demand ischemia Assessment/Plan: followed by cardiology. no chest pain or shortness of breath. Code(s): I24.8 - OTHER FORMS OF ACUTE ISCHEMIC HEART DISEASE (5) Hyperkalemia Assessment/Plan: resolved Code(s): E87.5 - HYPERKALEMIA (6) Ischemic cardiomyopathy Code(s): I25.5 - ISCHEMIC CARDIOMYOPATHY (7) Syncope Assessment/Plan: fall precautions, rolling walker at bedside. Code(s): R55 - SYNCOPE AND COLLAPSE Qualifiers: Syncope type: unspecified Qualified Code(s): R55 - Syncope and collapse (8) Weakness Code(s): R53.1 - WEAKNESS (9) Acute on chronic kidney failure Code(s): N17.9 - ACUTE KIDNEY FAILURE, UNSPECIFIED; N18.9 - CHRONIC KIDNEY DISEASE, UNSPECIFIED Qualifiers: Acute renal failure type: unspecified Chronic kidney disease stage: unspecified stage Qualified Code(s): N17.9 - Acute kidney failure, unspecified ; N18.9 - Chronic kidney disease, unspecified (10) DM type 2 (diabetes mellitus, type 2) Code(s): E11.9 - TYPE 2 DIABETES MELLITUS WITHOUT COMPLICATIONS Qualifiers: Diabetes mellitus buttermaker helper insulin use: without buttermaker helper use Visit type - Emergency Visit Emergency Visit: Yes ED Registration Date: 12/22/19 Care time: The patient presented to the Emergency Department on the above date and was hospitalized for further evaluation of their emergent condition. - New Patient This patient is new to me today: No - Critical Care Critical Care patient: No - Discharge Referral Referred to [facility] No
[2019-12-28] MEDS ORDERED: MAGNESIUM OXIDE 400 MG TABLET (FP) PO ONE (15:30)
--- NOTE | 2019-12-28 15:55 | DS ---
Physical Exam: SUBJECTIVE: Patient seen and examined OBJECTIVE: Patient is a 74 male with a history of diabetes, hypertension, cad, (s/p stent placement 1 month ago), AFib (Eliquis and Amiodarone), and R iliac stent. He presented to the ER after a syncopal episode. Patient evaluated by Cardiology and fitted for life vest. Patient sustained a fall during hospital stay secondary to lower ext weakness, head CT negative. Patient has been stable s/p fall. Encouraged him to use RW that has been provided to him for strength and to avoid any further falls. He and were asking about possible transfer to [place] for ICD placement vs going home. Discussed with patient that his aba therapist recommends ICD placement as an outpatient. Patient is to continue Amiodarone 100 mg QD, Ranexa 500 mg BID, Toprol XL 50 mg BID, Imdur 120 mg QD, Eliquis 5 mg BID, Plavix 75 mg QD and Lipitor 20 mg QHS. He may eventually need an ARB/or Entresto as renal function improves. He is currently on Hydralazine 25mb BID. Patient sent home with RW for safety as he sustained a fall during his hospital stay. Vital Signs Period Temp Pulse Resp BP Sys/Bella Pulse Ox Last 24 Hr 97.4 F-98.5 F 48-58 18-20 114-131/48-73 97-99 PHYSICAL EXAM GENERAL: The patient is awake, alert, and fully oriented, in no acute distress. HEAD: bilateral eye eccymosis s/p fall EYES: PERRL, extraocular movements intact, sclera anicteric, conjunctiva clear. No ptosis. ENT: Ears normal, nares patent, oropharynx clear without exudates, moist mucous membranes. NECK: Trachea midline, full range of motion, supple. LUNGS: Breath sounds equal, clear to auscultation bilaterally HEART: Regular rate and rhythm ABDOMEN: Soft, nontender, nondistended, normoactive bowel sounds EXTREMITIES: no edema. NEUROLOGICAL: Normal speech, gait not observed. LABS Laboratory Results - last 24 hr 12/27/19 12/27/19 12/28/19 17:30 22:11 05:52 WBC 6.8 RBC 3.24 L Hgb 10.5 L Hct 31.1 L MCV 96.0 MCH 32.3 MCHC 33.7 RDW 16.0 H Plt Count 237 MPV 7.4 L Absolute Neuts (auto) 4.7 Neutrophils % 68.5 Lymphocytes % 12.7 Monocytes % 11.9 H Eosinophils % 6.2 H Basophils % 0.7 Nucleated RBC % 0 Sodium Potassium Chloride Carbon Dioxide Anion Gap BUN Creatinine Est GFR (CKD-EPI)AfAm Est GFR (CKD-EPI)NonAf POC Glucometer 93 150 Random Glucose Calcium Magnesium Total Bilirubin AST ALT Alkaline Phosphatase Total Protein Albumin 12/28/19 12/28/19 12/28/19 05:52 06:27 11:11 WBC RBC Hgb Hct MCV MCH MCHC RDW Plt Count MPV Absolute Neuts (auto) Neutrophils % Lymphocytes % Monocytes % Eosinophils % Basophils % Nucleated RBC % Sodium 137 Potassium 4.4 Chloride 106 Carbon Dioxide 26 Anion Gap 5 L BUN 20.2 H Creatinine 1.8 H Est GFR (CKD-EPI)AfAm 42.63 Est GFR (CKD-EPI)NonAf 36.78 POC Glucometer 91 105 Random Glucose 97 Calcium 8.6 Magnesium 1.5 L Total Bilirubin 0.6 AST 32 ALT 23 Alkaline Phosphatase 73 Total Protein 7.1 Albumin 2.6 L HOSPITAL COURSE: Date of Admission:12/22/19 Date of Discharge: 12/28/19 Minutes to complete discharge: 45 Discharge Summary Problems reviewed: Yes Reason For Visit: SYNCOPE ELEVATED TROPONIN LEVEL Current Active Problems MARIANNA (acute kidney injury) (Acute) AV bloc first degree (Acute) Acute kidney injury superimposed on chronic kidney disease (Acute) CKD (chronic kidney disease) (Acute) Demand ischemia (Acute) Elevated troponin (Acute) Hyperkalemia (Acute) Ischemic cardiomyopathy (Acute) S/P CABG (coronary artery bypass graft) (Acute) S/P coronary artery stent placement (Acute) S/P insertion of iliac artery stent (Acute) Syncope (Acute) Weakness (Acute) Condition: Guarded - Instructions Diet, Activity, Other Instructions: Mr. Urrutia: You were admitted for syncopal episode. During your hospital stay you were evaluated by your aba therapist. Here are our discharge instructions: Please continue the following medications: - Amiodarone 100 mg daily at 8am, this medication controls your heart rate - Ranexa 500 mg twice daily, this medication is to aide in your heart functioning better and avoid chest pain. - Toprol XL 50 mg twice per day, this is for heart rate control. - Imdur 120 mg daily, this medication is for your blood pressure control - Eliquis 5mg twice per day at 8am and 8pm - this medication prevents blood clots for those with irregular hearts. - Plavix 75 mg daily at 8am - this medication can prevent stroke, heart attack and other heart problems. - Lipitor 20mg at bedtime 8pm, this medication is to control your cholesterol. all the medications above are your home medications, no medications have been called in. Please continue to use the rolling walker at all time. Please get up slowly from going from a sitting position to a standing position. You had a LifeVest fitted and you eventually require ICD implant as an outpatient - please make arrangements with Dr. Alvarez You will also need to be evaluated by Dr. Johnson, because you will need a dose adjustment of your cardiac medications but your renal function will need to stabilize first. Dr. Johnson can see you in his office. Call me with questions [facility] [phone] Referrals: Pascual Alvarez MD [Staff Physician] - Katie Johnson MD [Staff Physician] - Jean Paul Núñez MD [Primary Care Provider] - Disposition: HOME - Home Medications Comprehensive Discharge Medication List: Ambulatory Orders Clopidogrel Bisulfate [Plavix -] 75 mg PO DAILY 03/11/13 Isosorbide Mononitrate [Imdur] 120 mg PO DAILY 03/11/13 Metoprolol Succinate [Toprol XL -] 50 mg PO BID 03/11/13 metFORMIN HCL [Glucophage -] 500 mg PO BID 03/11/13 Apixaban [Eliquis] 5 mg PO BID 03/19/18 Nortriptyline HCl [Pamelor -] 25 mg PO HS 03/19/18 Amiodarone HCl [Cordarone -] 100 mg PO DAILY 04/28/18 Atorvastatin Ca [Lipitor] 20 mg PO DAILY 04/28/18 Cholecalciferol (Vitamin D3) [Vitamin D3] 1,000 unit PO DAILY 04/28/18 Melatonin 3 mg PO HS 04/28/18 Niacin 500 mg PO DAILY 04/28/18 Ranolazine [Ranexa] 500 mg PO BID 12/22/19 Zolpidem Tartrate [Ambien] 10 mg PO HS 12/22/19 Problem List - Problems (1) MARIANNA (acute kidney injury) Code(s): N17.9 - ACUTE KIDNEY FAILURE, UNSPECIFIED (2) AV bloc first degree Code(s): I44.0 - ATRIOVENTRICULAR BLOCK, FIRST DEGREE (3) Acute kidney injury superimposed on chronic kidney disease Code(s): N17.9 - ACUTE KIDNEY FAILURE, UNSPECIFIED; N18.9 - CHRONIC KIDNEY DISEASE, UNSPECIFIED (4) Demand ischemia Code(s): I24.8 - OTHER FORMS OF ACUTE ISCHEMIC HEART DISEASE (5) Hyperkalemia Code(s): E87.5 - HYPERKALEMIA (6) Ischemic cardiomyopathy Code(s): I25.5 - ISCHEMIC CARDIOMYOPATHY (7) Syncope Code(s): R55 - SYNCOPE AND COLLAPSE Qualifiers: Syncope type: unspecified Qualified Code(s): R55 - Syncope and collapse (8) Weakness Code(s): R53.1 - WEAKNESS (9) Acute on chronic kidney failure Code(s): N17.9 - ACUTE KIDNEY FAILURE, UNSPECIFIED; N18.9 - CHRONIC KIDNEY DISEASE, UNSPECIFIED Qualifiers: Acute renal failure type: unspecified Chronic kidney disease stage: unspecified stage Qualified Code(s): N17.9 - Acute kidney failure, unspecified ; N18.9 - Chronic kidney disease, unspecified (10) DM type 2 (diabetes mellitus, type 2) Code(s): E11.9 - TYPE 2 DIABETES MELLITUS WITHOUT COMPLICATIONS Qualifiers: Diabetes mellitus termite control service representative insulin use: without termite control service representative use This patient is new to me today: No Emergency Visit: Yes ED Registration Date: 12/22/19 Care time: The patient presented to the Emergency Department on the above date and was hospitalized for further evaluation of their emergent condition. Critical Care patient: No - Discharge Referral Referred to [facility] No
[2019-12-28 16:03] VITALS: BP 106/64; PULSE 51; TEMP 97.8
--- NOTE | 2020-01-02 14:17 | EKG ---
Test Reason : Blood Pressure : / mmHG Vent. Rate : 048 BPM Atrial Rate : 048 BPM P-R Int : 216 ms QRS Dur : 102 ms QT Int : 504 ms P-R-T Axes : 060 -60 083 degrees QTc Int : 450 ms SINUS BRADYCARDIA WITH 1ST DEGREE A-V BLOCK LEFT AXIS DEVIATION SEPTAL INFARCT (CITED ON OR BEFORE 05-NOV-2018) ABNORMAL ECG Confirmed by MD JANN, EVERTON ([id number]) on 01/02/2020 2:17:46 PM Referred By: Confirmed By:EVERTON FORTE MD
== END 2019-12-28 18:41 | disposition home or self-care (01) | DRG 312 ==
LOC: JER 12:55 → JERBED 19:11 → J4W 12-23 13:01
PROVIDERS: ADMIT Internal Medicine; ATTEND Nurse Practitioner Family
DX: R55 Syncope and collapse (principal); E46 Unspecified protein-calorie malnutrition; I24.8 Other forms of acute ischemic heart disease; I50.22 Chronic systolic (congestive) heart failure; Q61.01 Congenital single renal cyst; N17.9 Acute kidney failure, unspecified; I13.0 Hypertensive heart and chronic kidney disease with heart failure and stage 1 through stage 4 chronic kidney disease, or unspecified chronic kidney disease; E87.5 Hyperkalemia; E88.09 Other disorders of plasma-protein metabolism, not elsewhere classified; N18.3 Chronic kidney disease, stage 3 (moderate); I25.10 Atherosclerotic heart disease of native coronary artery without angina pectoris; I48.0 Paroxysmal atrial fibrillation; D63.1 Anemia in chronic kidney disease; E78.5 Hyperlipidemia, unspecified; N40.0 Benign prostatic hyperplasia without lower urinary tract symptoms; E11.22 Type 2 diabetes mellitus with diabetic chronic kidney disease; E11.42 Type 2 diabetes mellitus with diabetic polyneuropathy; N20.0 Calculus of kidney; I25.5 Ischemic cardiomyopathy; S00.03XA Contusion of scalp, initial encounter; I44.0 Atrioventricular block, first degree; Z95.1 Presence of aortocoronary bypass graft; Z95.5 Presence of coronary angioplasty implant and graft; G47.00 Insomnia, unspecified; Z68.21 Body mass index [BMI] 21.0-21.9, adult; W19.XXXA Unspecified fall, initial encounter; Y93.9 Activity, unspecified; Y92.89 Other specified places as the place of occurrence of the external cause; Y99.9 Unspecified external cause status
CPT/HCPCS: 36415; 70450-TC; 71045-TC-FY; 71250-TC; 72125-TC; 73110-TC-LT-FY; 73110-TC-RT-FY; 73130-TC-LT-FY; 73130-TC-RT-FY; 76775-TC; 76856-TC; 80048; 80053; 81003; 82550; 82570; 82607; 82746; 82962; 83540; 83550; 83735; 84156; 84484; 85025; 85610; 85730; 87077; 87086; 93005; 93010; 93306-TC; 95816; 97116-GP; 97161-GP; 99284-25; J0131